=== PATIENT | female | born 1935 | race Caucasian/White ===

== ENCOUNTER 2021-10-01 18:34 | Inpatient (IN) ==
--- NOTE | 2021-10-01 19:05 | Emergency Department Note ---
Impression & Plan Hypoxemia, Fall, CHI (closed head injury), Contusion of face, Anemia ED Provider Note NAME: ISABELLE ARANGO AGE: 86 SEX: F : 1935 ARRIVES VIA: Walk-In INFORMANT: Patient, ED PROVIDER(S): Shashi Ramirez MD Chief Complaint: Fall, facial pain HPI: Patient does present after sustaining a ground-level fall last evening. The patient states that she fell striking the front left side of her face. The patient does have mild pain to the left side of the head as well as the nose. The patient does take baby aspirin but no other medications. The patient denies any fevers or chills. Patient denies any chest pain abdominal pain back pain or extremity pain. Patient has not take anything for symptoms at home. The patient's pain is achy and worse with palpation. The patient's daughter who is present at bedside states that the patient has had approximate 4 falls since June. They do have the office of aging involved and somebody is supposed to present later this week for a life alert for the patient. Patient family are currently comfortable with current at home plan and are not seeking any hesham tional in or out home care at this time. They do believe the patient is safe at home. The daughter also relates that she has noticed some occasional tremor- like movements. No reported history of Parkinson's or dementia. ROS: See HPI for pertinent positives and negatives. A total of 10 systems were reviewed and otherwise negative. Past medical history: See below Surgical history: See below Social history: See below Physical Exam: GENERAL: NAD, non-toxic. EYE EXAM: Normal conjunctiva. PERRL, no anisocoria and EOM's grossly intact w/o pain. Face: Mild pain to the nose with associated ecchymosis and swelling, no epistaxis, mild pain to the left forehead with small area of ecchymosis but no obvious deformity. OROPHARYNX: Moist mucus membranes. Grossly normal dentition. NECK: Supple, no nuchal rigidity, no adenopathy, non-tender. No signs of meningismus. No midline C-spine TTP. Chest: No pain to palpation or obvious deformity. LUNGS: Clear to auscultation. Normal chest wall mechanics. HEART: NSR, no MRG. ABDOMEN: Abdomen soft, non-tender, normo-active bowel sounds, no masses, no rebound or guarding. BACK: No CVA TTP. SKIN: No rashes and no bruising. UPPER EXTREMITIES: Upper extremities are grossly normal. No pain to palpation or obvious deformity. LOWER EXTREMITIES: Grossly normal, no edema. No pain to palpation or obvious deformity, left lower extremity in boot. NEURO EXAM: A&O x3, cranial nerves II-XII grossly intact, normal speech, moves all 4 extremities on command w/o issue. Differential diagnoses: Fracture, dislocation, contusion, intra-abdominal, pneumothorax, intrathoracic, intracranial, neurologic, compartment syndrome, rhabdomyolysis, as well as other pathologies. Course: Patient was seen and evaluated the bedside. Full history physical exam was p erformed. EKG is interpreted by me Sinus with first-degree AV block, rate of 72, prolonged TN, normal axis, no obvious ST changes. No significant change from comparison EKG June 13, 2020. Imaging Studies: See Below Cardiac monitoring: An order was placed for continuous cardiac monitoring. The monitor shows a rate of 72 with sinus rhythm. MDM: Patient was seen in the ED waiting room as there were no beds in which the patient could initially be seen. Patient did have a CT of the head cervical spine and face completed. I was called by radiology as they were concerned about an abnormal finding is seen on the patient's scalp film and CT cervical spine. Patient did have a CT Noncon chest ordered as well. I did review prior x-ray which did appear to show similar findings from the patient's application coordinator film from today. Patient CT did not show any acute traumatic findings. 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 The patient states that she had this procedure done greater than a year ago. Further discussion with the patient the patient's daughter the patient has had been having some word finding difficulty increasing tremor with recurrence of falls. They are concerned about the patient's at home safety. Given this blood work is obtained. The patient has had increasing falls and questionable word finding difficulty although the patient's last known well is not easy to pinpoint to the patient states that has been ongoing for several months do not believe the patient is a TPA candidate especially in light of her recent trauma. Patient did have some hypoxemia. Upon reassessment the patient denies any chest pains or shortness of breath. P evelin was tolerating supplemental nasal cannula without any issues. I did speak with the on-call hospitalist Dr. Mcclure and the patient was admitted to the medicine service. Critical Care: I have personally spent 35 minutes of critical care time in direct management of this patient. This includes bedside care, interpretation of diagnostic studies, and testing, discussion with consultants, patient, and family members, and other require inpatient management activities. This 35 minutes is in excess of all separately billable procedures. Past Med/Surg History Medical History Hiatal hernia Hypertension Surgical History H/O bladder repair surgery H/O: hysterectomy History of back surgery Hx of cholecystectomy Social History Smoking Status: Never smoker Feels Safe at Home: Yes Assistive Devices: Walker Immunizations: Vaccinated for Covid and flu Allergies Allergies Allergy/AdvReac Type Severity Reaction Status Date / Time No Known Allergies Allergy Unknown ` Verified 10/01/21 23:19 Home Meds Home Medications Medication Instructions Recorded Confirmed allopurinol 300 mg tablet 300 mg PO DAILY 10/01/21 10/01/21 aspirin 81 mg tablet,delayed 81 mg PO DAILY 10/01/21 10/01/21 release (Aspirin Low Dose) atenolol 25 mg tablet 25 mg PO DAILY 10/01/21 10/01/21 furosemide 40 mg tablet 40 mg PO DAILY 10/01/21 10/01/21 hydroxyzine HCl 25 mg tablet 25 mg PO HS PRN 10/01/21 10/01/21 levothyroxine 50 mcg tablet 50 mcg PO DAILYBB 10/01/21 10/01/21 pregabalin 75 mg capsule 75 mg PO DAILY 10/01/21 10/01/21 sulfamethoxazole 800 1 tab PO BID 10/01/21 10/01/21 mg-trimethoprim 160 mg tablet tolterodine 4 mg capsule,extended 4 mg PO DAILY 10/01/21 10/01/21 release 24 hr tramadol 50 mg tablet 100 mg PO DAILY 10/01/21 10/01/21 Results & Data (ED) Vital Signs Vital Signs - 24 hr 10/01/21 18:35 10/01/21 18:42 10/01/21 20:08 Temperature 36.5 C Temperature Source Temporal Artery Scan Pulse Rate 70 Pulse Rate [Right Finger] 79 Respiratory Rate 22 19 Respiratory Effort / Characteristics Non-Labored Spontaneous Respiratory Depth Normal Respiratory Pattern Regular Blood Pressure 112/50 L Blood Pressure [Right Arm] 110/53 L Blood Pressure Mean 70 Blood Pressure Mean [Right Arm] 72 Pulse Oximetry 100 96 87 L Oxygen Delivery Method Nasal Cannula Room Air Room Air Oxygen Flow Rate 2 Sepsis Recent Fever Within 48 Hours No Sepsis New/Unexplained Change in Mental Status N/A Sepsis Action Taken by Nursing No Action Required 10/01/21 20:35 Temperature Temperature Source Pulse Rate Pulse Rate [Right Finger] 72 Respiratory Rate 20 Respiratory Effort / Characteristics Respiratory Depth Respiratory Pattern Blood Pressure Blood Pressure [Right Arm] 104/56 L Blood Pressure Mean Blood Pressure Mean [Right Arm] 72 Pulse Oximetry 100 Oxygen Delivery Method Nasal Cannula Oxygen Flow Rate 2 Sepsis Recent Fever Within 48 Hours Sepsis New/Unexplained Change in Mental Status Sepsis Action Taken by Skilled Nursing Medications Current Medication List: was personally reviewed by me Laboratory Data Attestation: I reviewed the patient's lab results. Result diagrams: 10/01/21 20:24 10/02/21 04:42 Lab Results 10/01/21 10/01/21 10/01/21 Range/Units 20:15 20:24 20:24 WBC 8.35 (4.8-10.8) K/uL RBC 3.30 L (4.2-5.4) M/uL Hgb 9.5 L (12.0-16.0) g/dL Hct 29.8 L (37-47) % MCV 90.3 (80-100) fL MCH 28.8 (25-34) pg MCHC 31.9 L (32-36) g/dL RDW Std Deviation 52.9 H (36.4-46.3) fL RDW Coeff of Lea 16.2 H (11.5-14.5) % Plt Count 312 (130-400) K/uL MPV 9.8 (7.4-10.4) fL Immature Gran % (Auto) 0.1 % Neut % (Auto) 62.3 % Lymph % (Auto) 31.1 % Guthrie % (Auto) 5.3 % Eos % (Auto) 0.8 % Baso % (Auto) 0.4 % Neut # (Auto) 5.20 (1.4-6.5) K/uL Lymph # (Auto) 2.60 (1.2-3.4) K/uL Guthrie # (Auto) 0.44 (0.11-0.59) K/uL Eos # (Auto) 0.07 (0-0.5) K/uL Baso # (Auto) 0.03 (0-0.2) K/uL Immature Gran # (Auto) 0.01 (0.00-0.02) K/uL Sodium 142 (136-145) mmol/L Potassium 3.1 L (3.5-5.1) mmol/L Chloride 103 (98-107) mmol/L Carbon Dioxide 29 (21-32) mmol/L Anion Gap 10.0 (3-11) BUN 31 H (7-18) mg/dl Creatinine 2.38 H (0.6-1.2) mg/dl Est Cr Clr Drug Dosing 11.4 ml/min Est GFR ( Amer) 20.6 ml/min Est GFR (Non-Af Amer) 17.7 ml/min BUN/Creatinine Ratio 12.9 (10-20) Glucose 81 (70-99) mg/dl Calcium 7.8 L (8.5-10.1) mg/dl Phosphorus 3.0 (2.5-4.9) mg/dl Magnesium 1.0 L (1.8-2.4) mg/dl Total Bilirubin 0.3 (0.2-1) mg/dl AST 40 H (15-37) U/L ALT 29 (12-78) Alkaline Phosphatase 154 H (45-117) U/L Troponin I < 0.015 (0-0.045) ng/ml Total Protein 6.8 (6.4-8.2) gm/dl Albumin 2.5 L (3.4-5.0) gm/dl Globulin 4.3 H (2.5-4.0) gm/dl Albumin/Globulin Ratio 0.6 L (0.9-2) TSH 0.604 (0.300-4.500) uIu/ml SARS-CoV-2, RNA, NAAT NEGATIVE (NEGATIVE) Administered Medications Allopurinol (Allopurinol 100 Mg Tab) 100 mg PO DAILY DARIEL Stop: 11/01/21 08:59 Last Admin: 12/27/21 09:54 Dose: 100 mg Documented by: [id number] Aspirin (Aspirin 81 Mg Ectab) 81 mg PO DAILY DARIEL Stop: 11/01/21 08:59 Last Admin: 10/02/21 09:54 Dose: 81 mg Documented by: [id number] Atenolol (Atenolol 25 Mg Tablet) 25 mg PO DAILY DARIEL Stop: 11/01/21 08:59 Last Admin: 10/02/21 09:54 Dose: 25 mg Documented by: [id number] Cyanocobalamin (Cyanocobalamin 500 Mcg Tablet (Vitamin B-12)) 1,000 mcg PO DAILY DARIEL Stop: 11/01/21 08:59 Last Admin: 10/02/21 09:55 Dose: 1,000 mcg Documented by: [id number] Docusate Sodium (Docusate Sodium 100 Mg Cap) 100 mg PO BID DARIEL Stop: 11/01/21 08:59 Last Admin: 10/02/21 09:55 Dose: 100 mg Documented by: [id number] Estrogens Conjugated (Estrogens, Conjugated 0.45 Mg Tab) 0.45 mg PO DAILY DARIEL Stop: 11/01/21 08:59 Last Admin: 10/02/21 09:55 Dose: 0.45 mg Documented by: [id number] Ferrous Sulfate (Ferrous Sulfate 325 Mg Tab) 325 mg PO BIDM DARIEL Stop: 11/01/21 07:59 Last Admin: 10/02/21 09:54 Dose: 325 mg Documented by: [id number] Folic Acid (Folic Acid 400 Mcg Tab) 1,600 mcg PO DAILY DARIEL Stop: 11/01/21 08:59 Last Admin: 10/02/21 09:55 Dose: 1,600 mcg Documented by: [id number] Furosemide (Furosemide 40 Mg Tab) 40 mg PO DAILY DARIEL Stop: 11/01/21 08:59 Last Admin: 10/02/21 09:56 Dose: 40 mg Documented by: [id number] Heparin Sodium (Porcine) (Heparin Sod 5,000 Unit/0.5 Ml Vial) 5,000 units SQ Q12 DARIEL Stop: 11/01/21 08:59 Last Admin: 10/02/21 09:56 Dose: 5,000 units Documented by: [id number] Potassium Chloride/Sodium Chloride (Normal Saline W/20 Meq Kcl) 20 meq in 1,000 mls @ 115 mls/hr IV .Q8H42M DARIEL Stop: 10/02/21 20:53 Last Infusion: 10/02/21 11:57 Dose: 0 mls/hr Documented by: [id number] Admin: 10/02/21 03:52 Dose: 115 mls/hr Documented by: [id number] Imipramine HCl (Imipramine Hcl 10 Mg Tab) 20 mg PO BID DARIEL Stop: 11/01/21 08:59 Last Admin: 10/02/21 09:57 Dose: 20 mg Documented by: [id number] Magnesium Oxide (Magnesium Oxide 400 Mg Tab) 400 mg PO DAILY DARIEL Stop: 11/01/21 08:59 Last Admin: 10/02/21 09:57 Dose: 400 mg Documented by: [id number] Pantoprazole Sodium (Pantoprazole 40 Mg Tab) 40 mg PO DAILY DARIEL Stop: 11/01/21 08:59 Last Admin: 10/02/21 09:57 Dose: 40 mg Documented by: [id number] Potassium Chloride (Potassium Chloride Crtab 20 Meq Tabcr) 40 meq PO Q6H DARIEL Stop: 10/02/21 14:01 Last Admin: 10/02/21 09:54 Dose: 40 meq Documented by: [id number] Pregabalin (Pregabalin 50 Mg Cap) 50 mg PO DAILY DARIEL Stop: 11/01/21 08:59 Last Admin: 10/02/21 11:57 Dose: 50 mg Documented by: [id number] Trimethoprim/Sulfamethoxazole (Sulfamethoxazole/Trimethoprim Ds 800/160mg Tab) 2 tab PO Q24H DARIEL; Protocol Stop: 10/09/21 08:59 Last Admin: 10/02/21 09:57 Dose: 2 tab Documented by: [id number] Discontinued Medications Albuterol (Albut/Ipratrop 3mg/0.5mg Neb 3 Ml Vial) 3 ml NEB NOW STA; Protocol Stop: 10/01/21 20:59 Last Admin: 10/01/21 21:09 Dose: 3 ml Documented by: [id number] Sodium Chloride (Nss) 500 mls @ 999 mls/hr IV .Q31M DARIEL Stop: 10/01/21 20:45 Last Infusion: 10/01/21 21:22 Dose: 0 mls/hr Documented by: [id number] Admin: 10/01/21 20:48 Dose: 999 mls/hr Documented by: [id number] Magnesium Sulfate/Dextrose (Magnesium Sulfate / D5w) 1 gm in 100 mls @ 50 mls/hr IV Q2H STA Stop: 10/02/21 00:15 Last Infusion: 10/02/21 00:55 Dose: 0 mls/hr Documented by: [id number] Admin: 10/01/21 22:33 Dose: 50 mls/hr Documented by: [id number] Imaging Data Radiologist's Impression: Cervical Spine CT 10/01/21 19:02 CT cervical spine wo con CLINICAL HISTORY: Status post fall with neck pain COMPARISON STUDY: No previous studies for comparison. CT DOSE: TECHNIQUE: Standard CT of the Cervical Spine was performed without IV contrast. A dose lowering technique was utilized adhering to the principles of ALARA. FINDINGS: Bones: Bones are osteopenic. There is no evidence for an acute fracture or malalignment. The heights of the vertebral bodies are maintained. The vertebral bodies are in anatomic alignment. The odontoid is intact. Degenerative changes are seen at the atlantoaxial articulation. Disc spaces:There is moderate to marked disc space narrowing at C5-6 and C6-7 with endplate cirrhosis and osteophyte formation. Apophyseal joints:Extensive degenerative apophyseal joint disease is also pr esent bilaterally. Soft tissues:There is an abnormal air collection seen within the soft tissues anterior to the lower cervical and thoracic spine was separate from the cervical airway. This extends from the C5-C6 interspace level inferiorly. IMPRESSION: Osteopenia with no acute abnormality. Extensive degenerative disc and degenerative joint disease. Abnormal air collection anterior to the lower cervical and upper thoracic spine of uncertain etiology. This will be further evaluated on CT of the chest which was also ordered on this patient. ACT 112: Negative or not required by law. Electronically signed by: Ildefonso Waters M.D. 10/01/2021 7:[address] 10/01/21 19:02 CT facial bones wo con CLINICAL HISTORY: Status post fall with trauma to the head and face COMPARISON STUDY: No previous studies for comparison. CT DOSE: TECHNIQUE: Standard CT of the Facial Bones and Orbits was performed without IV contrast. A dose lowering technique was utilized adhering to the principles of ALARA. FINDINGS: Bones: There are no displaced fractures identified. The orbital rims are intact bilaterally. The zygomatic arches are intact bilaterally. There is evidence for an old right lateral nasal fracture. No acute nasal bone fractures seen The nasal septum is in the midline. The mandible and maxilla are intact. Paranasal sinuses:The adjacent paranasal sinuses are clear. Soft tissues:There is no focal soft tissue swelling. IMPRESSION: No acute abnormality. ACT 112: Negative or not required by law. Electronically signed by: Ildefonso Waters M.D. 10/01/2021 7:[address] 10/01/21 19:02 CT head/brain wo con CLINICAL HISTORY: Status post fall with trauma to the head. Pain COMPARISON STUDY: 06/13/2020 CT DOSE: 1317.02 mGy.cm TECHNIQUE: Standard CT of the Brain was performed without IV contrast. A dose lowering technique was utilized adhering to the principles of ALARA. FINDINGS: Extraaxial space: There is no evidence for subdural hematoma. There are no extra-axial fluid collections. Ventricles and cisterns: The ventricles are normal in size and configuration. There is no evidence for midline shift or mass effect. Parenchyma: There is no subarachnoid or intraparenchymal hemorrhage. There is no evidence for an acute infarct or cerebral edema. There is mild cerebral cortical atrophy and decreased attenuation in the periventricular white matter representing remote small vessel disease. There are no gross mass lesions. Osseous structures: There is no evidence for an acute fracture. The visualized paranasal sinuses are clear. The mastoid air cells are clear bilaterally. Soft tissues: There is no evidence for focal soft tissue swelling. IMPRESSION: No acute intracerebral pathology. 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 ACT 112: Negative or not required by law. Electronically signed by: Ildefonso Waters M.D. 10/01/2021 7:[address] 10/01/21 19:22 CT chest diagnostic wo con CLINICAL HISTORY: Abnormal air collections in the lower cervical and thoracic spine with the CT chest to further evaluate. COMPARISON STUDY: No previous studies for comparison. CT DOSE: 236.58 mGy.cm TECHNIQUE: Standard CT of the Chest was performed without IV contrast. A dose lowering technique was utilized adhering to the principles of ALARA. FINDINGS: The large air collection seen anterior to the cervical and thoracic spine extends all the way down to the stomach. 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 Clinical correlation is necessary. Airway: The airway is clear. No endobronchial lesion is identified. Lungs: Mild centrilobular emphysematous changes are seen particularly involving the right upper lobe. Mild interstitial fibrotic changes are also present bilaterally. The lungs are otherwise clear of acute alveolar opacities, air bronchograms or pulmonary nodules. Pleura: There is no evidence for pleural effusion. There is no evidence for pneumothorax. Mediastinum: There is no evidence for pathologic adenopathy on these limited noncontrast images. The heart size is within normal limits. The thoracic aorta is within normal limits. Atherosclerotic calcification is present. There is no evidence for pericardial effusion. Upper abdomen: The adrenal glands are normal bilaterally. Osseous structures: There is no acute osseous pathology. IMPRESSION: 1. CT findings most characteristic of previous esophagectomy with gastric pull- through procedure accounting for the air collection seen. Clinical correlation is recommended. 2. Mild centrilobular is edematous changes particularly involving the right upper lobe. 3. Mild interstitial fibrotic changes are also present. 4. There is otherwise no acute chest disease on these noncontrast images. ACT 112: Negative or not required by law. Electronically signed by: Ildefonso Waters M.D. 10/01/2021 7:50 PM Discharge Plan Visit Data Chief Complaint: Fall Stated Complaint: FALL, HIT HEAD, NOSE PAIN ED Provider: Shashi Ramirez Discharge Problem: Hypoxemia, Fall, CHI (closed head injury), Contusion of face, Anemia Discharge Problem: Fall Qualifiers: Encounter type: initial encounter Qualified Code(s): W19.XXXA - Unspecified fall, initial encounter CHI (closed head injury) Qualifiers: Encounter type: initial encounter Qualified Code(s): S09.90XA - Unspecified injury of head, initial encounter Contusion of face Qualifiers: Encounter type: initial encounter Qualified Code(s): S00.83XA - Contusion of other part of head, initial encounter Anemia Qualifiers: Anemia type: unspecified type Qualified Code(s): D64.9 - Anemia, unspecified
--- NOTE | 2021-10-01 19:35 | CT Scan Report ---
CT head/brain wo con CLINICAL HISTORY: Status post fall with trauma to the head. Pain COMPARISON STUDY: 06/13/2020 CT DOSE: 1317.02 mGy.cm TECHNIQUE: Standard CT of the Brain was performed without IV contrast. A dose lowering technique was utilized adhering to the principles of ALARA. FINDINGS: Extraaxial space: There is no evidence for subdural hematoma. There are no extra-axial fluid collecti ons. Ventricles and cisterns: The ventricles are normal in size and configuration. There is no evidence f or midline shift or mass effect. Parenchyma: There is no subarachnoid or intraparenchymal hemorrhage. There is no evidence for an acu te infarct or cerebral edema. There is mild cerebral cortical atrophy and decreased attenuation in th e periventricular white matter representing remote small vessel disease. There are no gross mass lesi ons. Osseous structures: There is no evidence for an acute fracture. The visualized paranasal sinuses are clear. The mastoid air cells are clear bilaterally. Soft tissues: There is no evidence for focal soft tissue swelling. IMPRESSION: No acute intracerebral pathology. 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 ACT 112: Negative or not required by law. Electronically signed by: Ildefonso Waters M.D. 10/01/2021 7:34 PM
--- NOTE | 2021-10-01 19:40 | CT Scan Report ---
CT cervical spine wo con CLINICAL HISTORY: Status post fall with neck pain COMPARISON STUDY: No previous studies for comparison. CT DOSE: TECHNIQUE: Standard CT of the Cervical Spine was performed without IV contrast. A dose lowering te chnique was utilized adhering to the principles of ALARA. FINDINGS: Bones: Bones are osteopenic. There is no evidence for an acute fracture or malalignment. The heights of the vertebral bodies are maintained. The vertebral bodies are in anatomic alignment. The odontoid is intact. Degenerative changes are seen at the atlantoaxial articulation. Disc spaces:There is moderate to marked disc space narrowing at C5-6 and C6-7 with endplate cirrhosis and osteophyte formation. Apophyseal joints:Extensive degenerative apophyseal joint disease is also present bilaterally. Soft tissues:There is an abnormal air collection seen within the soft tissues anterior to the lower c ervical and thoracic spine was separate from the cervical airway. This extends from the C5-C6 intersp jefe level inferiorly. IMPRESSION: Osteopenia with no acute abnormality. Extensive degenerative disc and degenerative joint disease. Abnormal air collection anterior to the lower cervical and upper thoracic spine of uncertain etiology. This will be further evaluated on CT of the chest which was also ordered on this patient. ACT 112: Negative or not required by law. Electronically signed by: Ildefonso Waters M.D. 10/01/2021 7:39 PM
--- NOTE | 2021-10-01 19:44 | CT Scan Report ---
CT facial bones wo con CLINICAL HISTORY: Status post fall with trauma to the head and face COMPARISON STUDY: No previous studies for comparison. CT DOSE: TECHNIQUE: Standard CT of the Facial Bones and Orbits was performed without IV contrast. A dose lowe ring technique was utilized adhering to the principles of ALARA. FINDINGS: Bones: There are no displaced fractures identified. The orbital rims are intact bilaterally. The zygo matic arches are intact bilaterally. There is evidence for an old right lateral nasal fracture. No ac zelda nasal bone fractures seen The nasal septum is in the midline. The mandible and maxilla are intact . Paranasal sinuses:The adjacent paranasal sinuses are clear. Soft tissues:There is no focal soft tissue swelling. IMPRESSION: No acute abnormality. ACT 112: Negative or not required by law. Electronically signed by: Ildefonso Waters M.D. 10/01/2021 7:43 PM
--- NOTE | 2021-10-01 19:51 | CT Scan Report ---
CT chest diagnostic wo con CLINICAL HISTORY: Abnormal air collections in the lower cervical and thoracic spine with the CT chest to further evaluate. COMPARISON STUDY: No previous studies for comparison. CT DOSE: 236.58 mGy.cm TECHNIQUE: Standard CT of the Chest was performed without IV contrast. A dose lowering technique was utilized adhering to the principles of ALARA. FINDINGS: The large air collection seen anterior to the cervical and thoracic spine extends all the way down to the stomach. The stomach is pulled into the chest and the findings are most characteristic of interp osition of bowel status post esophagectomy. Clinical correlation is necessary. Airway: The airway is clear. No endobronchial lesion is identified. Lungs: Mild centrilobular emphysematous changes are seen particularly involving the right upper lobe. Mild interstitial fibrotic changes are also present bilaterally. The lungs are otherwise clear of [place] alveolar opacities, air bronchograms or pulmonary nodules. Pleura: There is no evidence for pleural effusion. There is no evidence for pneumothorax. Mediastinum: There is no evidence for pathologic adenopathy on these limited noncontrast images. The heart size is within normal limits. The thoracic aorta is within normal limits. Atherosclerotic calci fication is present. There is no evidence for pericardial effusion. Upper abdomen: The adrenal glands are normal bilaterally. Osseous structures: There is no acute osseous pathology. IMPRESSION: 1. CT findings most characteristic of previous esophagectomy with gastric pull-through procedure acco unting for the air collection seen. Clinical correlation is recommended. 2. Mild centrilobular is edematous changes particularly involving the right upper lobe. 3. Mild interstitial fibrotic changes are also present. 4. There is otherwise no acute chest disease on these noncontrast images. ACT 112: Negative or not required by law. Electronically signed by: Ildefonso Waters M.D. 10/01/2021 7:50 PM
[2021-10-01] MEDS ORDERED: SODIUM CHLORIDE 0.9% 500 ML IV SCH (20:15)
[2021-10-01 20:36] LABS: Basophils # (auto) 0.03 K/uL (0-0.2); Basophils % (auto) 0.4 %; Eosinophils # (auto) 0.07 K/uL (0-0.5); Eosinophils % (auto) 0.8 %; Hematocrit (blood only) 29.8 % (37-47); Hemoglobin 9.5 g/dL (12.0-16.0); Immature Granulocytes # (auto) 0.01 K/uL (0.00-0.02); Immature Granulocytes % (auto) 0.1 %; Lymphocytes % (auto) 31.1 %; Mean Corpuscular Hemoglobin 28.8 pg (25-34); Mean Corpuscular Hgb Conc 31.9 g/dL (32-36); Mean Corpuscular Volume 90.3 fL (80-100); Mean Platelet Volume 9.8 fL (7.4-10.4); Monocytes # (auto) 0.44 K/uL (0.11-0.59); Monocytes % (auto) 5.3 %; Neutrophils % (auto) 62.3 %; Platelet Count 312 K/uL (130-400); RDW Coefficient of Variation 16.2 % (11.5-14.5); RDW Standard Deviation 52.9 fL (36.4-46.3); White Blood Count 8.35 K/uL (4.8-10.8)
[2021-10-01] MEDS ORDERED: ALBUT/IPRATROP 3MG/0.5MG NEB 3 ML VIAL NEB STA (20:58)
[2021-10-01 21:00] LABS: Alanine Aminotransferase 29 (12-78); Albumin Level 2.5 gm/dl (3.4-5.0); Aspartate Aminotransferase 40 U/L (15-37); BUN Creatinine Ratio 12.9 (10-20); Blood Urea Nitrogen 31 mg/dl (7-18); Calcium 7.8 mg/dl (8.5-10.1); Carbon Dioxide 29 mmol/L (21-32); Chloride 103 mmol/L (98-107); Creatinine Clr Calc Pharmacy 11.4 ml/min; Est GFR (African American) 20.6 ml/min; Est GFR (Non-African American) 17.7 ml/min; Glucose 81 mg/dl (70-99); Potassium 3.1 mmol/L (3.5-5.1); Sodium 142 mmol/L (136-145)
[2021-10-01 21:06] LABS: Bilirubin,Total 0.3 mg/dl (0.2-1)
[2021-10-01 21:10] LABS: Albumin Globulin Ratio 0.6 (0.9-2); Alkaline Phosphatase 154 U/L (45-117); Globulin 4.3 gm/dl (2.5-4.0); Thyroid Stimulating Hormone 0.604 uIu/ml (0.300-4.500); Total Protein 6.8 gm/dl (6.4-8.2); Troponin I < 0.015 ng/ml (0-0.045)
[2021-10-01] MEDS ORDERED: MAGNESIUM SULFATE / D5W 1 GM/100 ML BAG IV STA (22:16)
--- NOTE | 2021-10-01 22:24 | History & Physical Report ---
Date of Service October 01, 2021 Assessment & Plan (1) Fall: Plan: Mrs. Sarmiento is an 86 yo woman who is being admitted for evaluation of increasingly frequent falls, intermittent tremors and word finding difficulties. - no acute injuries noted on CT of head, cervical spine, face and chest - Etiology of falls does not appear to be mechanical, would favor syncope - Lack of prodrome makes vasovagal unlikley - orthostasis is a possibility. orthostatic vitals ordered - hypotension is possible given home medications of atenolol and lasix; BP here mildly soft at 110/53 - cardiac is a possibility given lack of prodrome - no arrhythmia noted on ekg - continue cardiac monitoring - neurogenic origin is plausible given new onset shakes and word finding issues. Head CT was normal. Brain MRI ordered (cannot use contrast due to kidney function). EEG ordered. Consider neuro consult. - As for the new onset shakes/word finding difficulties - unclear if these are related to falls. Brain MRI and EEG as above. Consideration should also be given to poor kidney function - patient is on Lyrica, and at upper limit of dosing for CrCl - it is possible symptoms are due to impaired clearance of this medication. Dose reduced to 50mg daily. (2) Hypoxia: Plan: - O2 sat recorded as low as 87 % on room air --> improved to 100% on 2L via NC after duo neb administration - no history of underlying lung disease (although she is a former smoker) - COVID 19 neg - Chest CT showing no focal consolidation or nodules; mild emphysematous changes and mild interstitial fibrotic changes noted - etiology uncertain: infection seems unlikely; wells score of 0, PE unlikely. Could be client support representative of undiagnosed COPD - recommend formal PFTs as outpatient - ambulatory pulse ox ordered (3) Elevated serum creatinine: Plan: - Cr 2.38, BUN at 31 - Cr from 06/2021 admission was 1.28 - CrCl is 11, GFR is 17 - renally dose meds as appropriate; avoid contrast dye - NSS ordered - trend CMP (4) Anemia: Plan: - Hgb 9.5, MCV 90 - normocytic anemia - iron panel ordered - continue home ferrous sulfate, B12 and folate supplements (5) Hypokalemia: Plan: - level 3.1; NSS with 20meq Kcl ordered - Mag low at 1.0; supplement ordered - patient is on home lasix dose - trend CMP (6) Hypomagnesemia: Plan: - low at 1.0 - patient takes mag-ox supplement as outpatient - consider switching to mag - chloride for improved absoprtion - IV mag sulfate ordered - repeat Mag level in AM (7) Foot ulcer, left: Plan: - wound care nurse consulted - per patient, wound culture grew MRSA - continue Bactrim (renally dosed at 1 tab q12) (8) Elevated AST (SGOT): Plan: - level at 40 - repeat CMP in am (9) Neuropathic pain: Plan: - home dose of lyrica is 75mg daily - considering CrCl is < 15mL/minute, 75mg daily dose is at upper limit - will reduce dose to 50mg daily (10) Gout: Plan: - continue home allopurinol dose (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 PT/OT ordered Code: DNOrquidea, juvenal with cardiac resuscitation Plan: Patient seen and examined, chart reviewed, case discussed with Dr. Beyer and I agree with her assessment and plan as above. In brief, patient is an 86yo female presenting with increase in falls, gait instability as well as word finding and tremor/myoclonic jerking, ongoing x 2 weeks Hypoxic in the ER requiring supplemental O2 Afebrile, HD stable, adequate oxygenation on 2L NC Speech is slow but appropriate +tremor noted HEENT -MMM, Neck supple Heart - +S1/S2, regular Lungs - CTA Abd - +BS, soft, NT/ND Ext - No edema Labs and images reviewed Assessment/Plan- ?falls vs syncope. Concerning with word finding as well as report of tremor. ?if from worsening renal function - myoclonic jerking, ambulatory dysfunction ?CVA/TIA/Seizures -Check MRI Brain -Check orthostatic VS and ambulatory sats -Renal dosing to all meds -Remainder as above History of Present Illness Primary Care Provider: Dorian Mcnulty Mrs. Sarmiento is an 86 yo woman who was brought in to the [facility] ED by her daughter for evaluation after a fall. She fell in her home on 09/30/21 and struck the left side of her face. Her daughter states she has sustained 4-5 falls since the month of June 2021. Mrs. Sarmiento denies tripping - she denies any prodromal symptoms (chest flutter, graying of vision, dizziness/li ghtheadedness). She says "all of a sudden I am down." She does take a daily baby aspirin, but she is not on a thinner. In the days preceding this admission, she denies any acute illness (fever/chills, cough, congestion, dysuria, nausea/vomiting, diarrhea). However, over the past two weeks, she reports new intermittent "shakes/jerks" and word finding difficulty. She says they come on randomly and later self- resolve. The shakes affect her face/mouth and her upper extremities. Her daughter, who is present during the admission, attests that this is a marked change from her typical baseline. Of note, she is on a course of Bactrim for a MRSA + ulcer of the left foot. She wears a soft walking boot. Family Hx: mother had dementia, no hx of Parkinsons, no seizure disorders Social Hx: she lives alone; office of the aging is involved and plans to drip off a life alert necklace to her this coming week; no etoh; former smoker, quit 25 years ago, 20 pack year history. In the ED, she was afebrile with normal HR and blood pressure. Her O2 sat was as low as 87% on room air. Her WBC was normal, covid 19 test negative. Hgb low at 9.5, MCV 90. K low at 3.1. Mag low at 1.0. Cr elevated to 2.38, BUN at 31. AST elevated to 40, ALT WNL. Albumin low at 2.5. Trop undetectable. TSH WNL. EKG showing NSR. Head CT showing no acute abnormalities. C-spine CT showing degenerative changes without acute pathology. Face CT was normal. Chest CT showing evidence of a large air collection, seen anterior to the cervical and thoracic spine, extending all the way down to the stomach. 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 She was given 1 duo-neb and 500ml of NSS. Allergies Allergy/AdvReac Type Severity Reaction Status Date / Time No Known Allergies Allergy Unknown ` Verified 10/01/21 23:19 Home Medications Medication Instructions Recorded Confirmed Type allopurinol 300 mg tablet 300 mg PO DAILY 10/01/21 10/01/21 History aspirin 81 mg tablet,delayed 81 mg PO DAILY 10/01/21 10/01/21 History release (Aspirin Low Dose) atenolol 25 mg tablet 25 mg PO DAILY 10/01/21 10/01/21 History furosemide 40 mg tablet 40 mg PO DAILY 10/01/21 10/01/21 History hydroxyzine HCl 25 mg tablet 25 mg PO HS PRN 10/01/21 10/01/21 History levothyroxine 50 mcg tablet 50 mcg PO DAILYBB 10/01/21 10/01/21 History pregabalin 75 mg capsule 75 mg PO DAILY 10/01/21 10/01/21 History sulfamethoxazole 800 1 tab PO BID 10/01/21 10/01/21 History mg-trimethoprim 160 mg tablet tolterodine 4 mg capsule,extended 4 mg PO DAILY 10/01/21 10/01/21 History release 24 hr tramadol 50 mg tablet 100 mg PO DAILY 10/01/21 10/01/21 History Past Med/Surg History Medical History Hiatal hernia Hypertension Surgical History H/O bladder repair surgery H/O: hysterectomy History of back surgery Hx of cholecystectomy Social History Smoking Status: Never smoker Feels Safe at Home: Yes Review of Systems Constitutional: no fever and no chills Respiratory: no cough Cardiovascular: + syncope; no chest pain Gastrointestinal: no abdominal pain and no vomiting Genitourinary: no dysuria and no urinary frequency Physical Exam Constitutional: WD/WN, vitals as above cooperative; no acute distress Eyes: + anicteric sclerae, PERRL, normal accommodation and EOM intact bilaterally; no nystagmus ENMT: external ear and nose normal, oropharynx normal Neck: trachea midline, no thyromegaly Respiratory: normal respiratory effort, lungs clear to auscultation Auscultation: no crackles, no rales, no rhonchi and no wheezes Cardiovascular: RRR, no murmur, no edema Heart Sounds: normal S1 and normal S2 Extremities: no pedal edema Gastrointestinal (Abdomen): normal bowel sounds, soft, nontender, no hepatosp lenomegaly Musculoskeletal: Head/Neck/Chest: normocephalic and head atraumatic Skin: no rashes, warm and dry + ulcer (dorsum of left foot, no signs of acute infection) and + ecchymosis (R face) Neurologic: CN's II-XI intact bilaterally, moves all extremities and awake; no focal motor deficits Speech / Cognition: + abnormal speech (word finding difficulty) no cogwheel rigidity noted Psychiatric: A+Ox3, euthymic affect Results & Data Results & Data ([facility]) Vital Signs (Past 12 Hours) Vital Signs Temp Pulse Pulse Resp BP BP Pulse Ox 10/01/21 20:35 72 20 104/56 L 100 10/01/21 20:08 87 L 10/01/21 18:42 36.5 C 70 19 112/50 L 96 10/01/21 18:35 79 22 110/53 L 100 Resident Activity Tracking Resident Involvement: Resident Care Provided Care Provided: Adult Hospital Medicine (1) Fall Encounter type: initial encounter Qualified Code(s): W19.XXXA - Unspecified fall, initial encounter
[2021-10-02] MEDS ORDERED: ACETAMINOPHEN 325 MG TAB PO PRN (02:32)
[2021-10-02] MEDS ORDERED: POLYETHYLENE (MIRALAX) 17 GM PACK PO PRN (02:32)
[2021-10-02] MEDS: NSS + 20MEQ KCL 20 MEQ/1,000 ML BAG IV SCH ×2 (03:52→13:11)
--- NOTE | 2021-10-02 04:11 | Billing Data ---
Date of Service October 01, 2021 Coding Level of Care Code INT OBSERVATION CARE 70M LVL 3
[2021-10-02 05:49] LABS: Albumin Globulin Ratio 0.6 (0.9-2); Albumin Level 2.2 gm/dl (3.4-5.0); BUN Creatinine Ratio 15.1 (10-20); Bilirubin,Total 0.2 mg/dl (0.2-1); Calcium 7.6 mg/dl (8.5-10.1); Creatinine Clr Calc Pharmacy 13.9 ml/min; Est GFR (African American) 26.3 ml/min; Est GFR (Non-African American) 22.7 ml/min; Globulin 3.5 gm/dl (2.5-4.0); Total Protein 5.7 gm/dl (6.4-8.2)
[2021-10-02 05:54] LABS: Ferritin 1665.8 ng/ml (8-388)
--- NOTE | 2021-10-02 07:49 | Electrocardiogram Report ---
Test Reason : Blood Pressure : / mmHG Vent. Rate : 072 BPM Atrial Rate : 072 BPM P-R Int : 214 ms QRS Dur : 092 ms QT Int : 442 ms P-R-T Axes : 000 -01 014 degrees QTc Int : 483 ms Poor data quality, interpretation may be adversely affected Sinus rhythm with 1st degree A-V block Otherwise normal ECG When compared with ECG of 13-JUN-2020 16:15, No significant change was found Confirmed by Nirav Quesada ([id number]) on 10/02/2021 7:48:59 AM Referred By: REFERRED SELF Confirmed By:Radames Quesada
--- NOTE | 2021-10-02 07:50 | Magnetic Resonance Report ---
MRI OF THE BRAIN WITHOUT CONTRAST CLINICAL HISTORY: new falls, intermittent tremors, word finding difficulty COMPARISON STUDY: Head CT October 01, 2021. TECHNIQUE: Utilizing a 1.5 Alejandrina magnet and dedicated coil, multiplanar, multiecho imaging of the bra in was performed without IV contrast. FINDINGS: There are no foci of restricted diffusion to suggest acute infarct. No acute intracranial h emorrhage, midline shift or mass effect is present. Ventricular system is unremarkable. Basal cistern s are patent. There are no extra-axial collections. Flow-voids for the major intracranial vessels are present. There is moderate atrophy. Mild white matter T2 hyperintense foci suggest small vessel dise ase. Calvarial signal is within normal limits. There is no evidence for sinusitis. There is no mastoi d fluid. IMPRESSION: 1. No acute intracranial findings. 2. Moderate atrophy and mild small vessel disease. ACT 112: Negative or not required by law. Electronically signed by: Jose Briceno M.D. 10/02/2021 7:49 AM
[2021-10-02] MEDS ORDERED: FERROUS SULFATE 325 MG TAB PO SCH (09:00)
[2021-10-02] MEDS ORDERED: SULFAMETHOXAZOLE/TRIMETHOPRIM DS 800/160MG TAB PO SCH (09:00)
[2021-10-02] MEDS: allopurinoL 100 MG TAB PO SCH (09:54)
[2021-10-02] MEDS: POTASSIUM CHLORIDE CRTAB 20 MEQ TABCR PO SCH ×2 (09:54→15:14)
[2021-10-02] MEDS: ATENOLOL 25 MG TABLET PO SCH (09:54)
[2021-10-02] MEDS: ASPIRIN 81 MG ECTAB PO SCH (09:54)
[2021-10-02] MEDS: FERROUS SULFATE 325 MG TAB PO SCH ×2 (09:54→18:12)
[2021-10-02] MEDS: DOCUSATE SODIUM 100 MG CAP PO SCH ×2 (09:55→20:48)
[2021-10-02] MEDS: FOLIC ACID 400 MCG TAB PO SCH (09:55)
[2021-10-02] MEDS: ESTROGENS, CONJUGATED 0.45 MG TAB PO SCH (09:55)
[2021-10-02] MEDS: CYANOCOBALAMIN 500 MCG TABLET (VITAMIN B-12) PO SCH (09:55)
[2021-10-02] MEDS: HEPARIN SOD 5,000 UNIT/0.5 ML VIAL SQ SCH ×2 (09:56→20:48)
[2021-10-02] MEDS: FUROSEMIDE 40 MG TAB PO SCH (09:56)
[2021-10-02] MEDS: IMIPRAMINE HCL 10 MG TAB PO SCH ×2 (09:57→20:48)
[2021-10-02] MEDS: MAGNESIUM OXIDE 400 MG TAB PO SCH (09:57)
[2021-10-02] MEDS: PANTOprazole 40 MG TAB PO SCH (09:57)
--- NOTE | 2021-10-02 10:44 | Electroencephalogram ---
EEG Procedure Note Date of Service October 02, 2021 Start / End Times Start Time: 9:22 AM End Time: 9:42 AM Referring Physician Bruna Beyer MD History New onset tremors, word finding difficulties, evaluate for seizure activity Home Medication List Medication Instructions Recorded Confirmed Type allopurinol 300 mg tablet 300 mg PO DAILY 10/01/21 10/01/21 History aspirin 81 mg tablet,delayed 81 mg PO DAILY 10/01/21 10/01/21 History release (Aspirin Low Dose) atenolol 25 mg tablet 25 mg PO DAILY 10/01/21 10/01/21 History furosemide 40 mg tablet 40 mg PO DAILY 10/01/21 10/01/21 History hydroxyzine HCl 25 mg tablet 25 mg PO HS PRN 10/01/21 10/01/21 History levothyroxine 50 mcg tablet 50 mcg PO DAILYBB 10/01/21 10/01/21 History pregabalin 75 mg capsule 75 mg PO DAILY 10/01/21 10/01/21 History sulfamethoxazole 800 1 tab PO BID 10/01/21 10/01/21 History mg-trimethoprim 160 mg tablet tolterodine 4 mg capsule,extended 4 mg PO DAILY 10/01/21 10/01/21 History release 24 hr tramadol 50 mg tablet 100 mg PO DAILY 10/01/21 10/01/21 History Inpatient Medication List Allopurinol (Allopurinol 100 Mg Tab) 100 mg PO DAILY [facility] Stop: 11/01/21 08:59 Last Admin: 10/02/21 09:54 Dose: 100 mg Documented by: [id number] Aspirin (Aspirin 81 Mg Ectab) 81 mg PO DAILY [facility] Stop: 11/01/21 08:59 Last Admin: 10/02/21 09:54 Dose: 81 mg Documented by: [id number] Atenolol (Atenolol 25 Mg Tablet) 25 mg PO DAILY [facility] Stop: 11/01/21 08:59 Last Admin: 10/02/21 09:54 Dose: 25 mg Documented by: [id number] Cyanocobalamin (Cyanocobalamin 500 Mcg Tablet (Vitamin B-12)) 1,000 mcg PO DAILY [facility] Stop: 11/01/21 08:59 Last Admin: 10/02/21 09:55 Dose: 1,000 mcg Documented by: [id number] Docusate Sodium (Docusate Sodium 100 Mg Cap) 100 mg PO BID [facility] Stop: 11/01/21 08:59 Last Admin: 10/02/21 09:55 Dose: 100 mg Documented by: [id number] Estrogens Conjugated (Estrogens, Conjugated 0.45 Mg Tab) 0.45 mg PO DAILY [facility] Stop: 11/01/21 08:59 Last Admin: 10/02/21 09:55 Dose: 0.45 mg Documented by: [id number] Ferrous Sulfate (Ferrous Sulfate 325 Mg Tab) 325 mg PO BIDM [facility] Stop: 11/01/21 07:59 Last Admin: 10/02/21 09:54 Dose: 325 mg Documented by: [id number] Folic Acid (Folic Acid 400 Mcg Tab) 1,600 mcg PO DAILY [facility] Stop: 11/01/21 08:59 Last Admin: 10/02/21 09:55 Dose: 1,600 mcg Documented by: [id number] Furosemide (Furosemide 40 Mg Tab) 40 mg PO DAILY [facility] Stop: 11/01/21 08:59 Last Admin: 10/02/21 09:56 Dose: 40 mg Documented by: [id number] Heparin Sodium (Porcine) (Heparin Sod 5,000 Unit/0.5 Ml Vial) 5,000 units SQ Q 12 [facility] Stop: 11/01/21 08:59 Last Admin: 10/02/21 09:56 Dose: 5,000 units Documented by: [id number] Potassium Chloride/Sodium Chloride (Normal Saline W/20 Meq Kcl) 20 meq in 1,000 mls @ 115 mls/hr IV .Q8H42M [facility] Stop: 10/02/21 20:53 Last Admin: 10/02/21 03:52 Dose: 115 mls/hr Documented by: [id number] Imipramine HCl (Imipramine Hcl 10 Mg Tab) 20 mg PO BID [facility] Stop: 11/01/21 08:59 Last Admin: 10/02/21 09:57 Dose: 20 mg Documented by: [id number] Magnesium Oxide (Magnesium Oxide 400 Mg Tab) 400 mg PO DAILY [facility] Stop: 11/01/21 08:59 Last Admin: 10/02/21 09:57 Dose: 400 mg Documented by: [id number] Pantoprazole Sodium (Pantoprazole 40 Mg Tab) 40 mg PO DAILY [facility] Stop: 11/01/21 08:59 Last Admin: 10/02/21 09:57 Dose: 40 mg Documented by: [id number] Potassium Chloride (Potassium Chloride Crtab 20 Meq Tabcr) 40 meq PO Q6H [facility] Stop: 10/02/21 14:01 Last Admin: 10/02/21 09:54 Dose: 40 meq Documented by: [id number] Trimethoprim/Sulfamethoxazole (Sulfamethoxazole/Trimethoprim Ds 800/160mg Tab) 2 tab PO Q24H [facility]; Protocol Stop: 10/09/21 08:59 Last Admin: 10/02/21 09:57 Dose: 2 tab Documented by: [id number] Discontinued Medications Albuterol (Albut/Ipratrop 3mg/0.5mg Neb 3 Ml Vial) 3 ml NEB NOW STA; Protocol Stop: 10/01/21 20:59 Last Admin: 10/01/21 21:09 Dose: 3 ml Documented by: [id number] Sodium Chloride (Nss) 500 mls @ 999 mls/hr IV .Q31M [facility] Stop: 10/01/21 20:45 Last Infusion: 10/01/21 21:22 Dose: 0 mls/hr Documented by: [id number] Admin: 10/01/21 20:48 Dose: 999 mls/hr Documented by: [id number] Magnesium Sulfate/Dextrose (Magnesium Sulfate / D5w) 1 gm in 100 mls @ 50 mls/hr IV Q2H [facility] Stop: 10/02/21 00:15 Last Infusion: 10/02/21 00:55 Dose: 0 mls/hr Documented by: [id number] Admin: 10/01/21 22:33 Dose: 50 mls/hr Documented by: [id number] Description This is a 21 electrode EEG with a single channel dedicated to limited EKG. The electrodes were placed in accordance with the International 10-20 system. There is a posterior dominant rhythm of 10 Hz which is symmetrically distributed and attenuates with eye opening. There is a normal anterior to posterior organization. There is a frontally predominant photic driving response at various frequencies of photic stimulation. There is a symmetric frontal beta rhythm. There is no focal slowing. There are no epileptiform abnormalities. Interpretation Relatively normal-appearing awake/drowsy EEG. This patient does have frontally predominant photic driving response which is nonspecific and could relate to advanced age, medication effect, diminished level of alertness, or underlying metabolic abnormality. There is no supportive evidence of epilepsy or seizure disorder. [facility] EEG Procedure Codes Indication for Procedure (1) Seizure-like activity: Neurology Neurology: [id number] EEG include record awake & drowsy
[2021-10-02] MEDS: PREGABALIN 50 MG CAP PO SCH (11:57)
--- NOTE | 2021-10-02 15:11 | Hospitalist Progress Note ---
Date of Service October 02, 2021 Assessment & Plan (1) Syncope and collapse: Plan: Mrs. Sarmiento is an 86 yo woman who is being admitted for evaluation of increasingly frequent falls, intermittent tremors and word finding difficulties. - Cause of syncope is unknown at this time - She has had an extensive work up, nothing of which has been grossly abnormal, including MRI brain, EEG, CT head/cervical spine/face and chest - The myoclonic jerking is also uncertain -- ?tick - No echo ordered, will obtain this to eval LV function and valves - Will need a 30-day event monitor as outpatient - Hold off on neuro consult as this does not appear to be a neurologic cause - Orthostatics are negative - PT/OT eval and treat (2) Hypoxia: Plan: - O2 sat recorded as low as 87 % on room air --> improved to 100% on 2L via NC after duo neb administration - no history of underlying lung disease (although she is a former smoker) - COVID 19 neg - Chest CT showing no focal consolidation or nodules; mild emphysematous changes and mild interstitial fibrotic changes noted - etiology uncertain: infection seems unlikely; wells score of 0, PE unlikely. 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 of undiagnosed COPD - recommend formal PFTs as outpatient - ambulatory pulse ox ordered (3) Elevated serum creatinine: Plan: - Cr 2.38, BUN at 31--improved to 1.94 with hydration - Cr from Jun 2020 was 1.91--data is limited in the system, uncertain what her baseline is - renally dose meds as appropriate; avoid contrast dye - NSS ordered x 2 bags then stop - trend CMP (4) Anemia: Plan: - Hgb 9.5, MCV 90 - normocytic anemia - iron panel ordered - continue home ferrous sulfate, B12 and folate supplements (5) Hypokalemia: Plan: - NSS with 20meq Kcl ordered - patient is on home lasix dose - Potassium this morning 3.0 -- orally replaced - Repeat in AM (6) Hypomagnesemia: Plan: - low at 1.0 - patient takes mag-ox supplement as outpatient - consider switching to mag - chloride for improved absoprtion - IV mag sulfate ordered - repeat Mag level this morning is WNL at 2.0 (7) Foot ulcer, left: Plan: - wound care nurse consulted - per patient, wound culture grew MRSA - continue Bactrim (renally dosed at 1 tab q12) (8) Elevated AST (SGOT): Plan: - level at 40 - repeat CMP in am (9) Neuropathic pain: Plan: - home dose of lyrica is 75mg daily - considering CrCl is < 15mL/minute, 75mg daily dose is at upper limit - will reduce dose to 50mg daily (10) Gout: Plan: - continue home allopurinol dose (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 She was hospitalized 10/01 for recurrent falls. Pt notes that she fell Saturday, no symptoms prior, just fell while in the bathroom and struck her face. She was in her living room when she fell on Saturday. Doesn't remember the events. Denies symptoms of lightheadedness/dizziness prior to the falls. She has also had issues with her upper extremities and experiencing intermittent jerking type movements but she states they were much worse on Saturday. She has no h/o seizure d/o. Denies being incontinent of urine or biting her tongue after the event. Denies confusion after the event as well. She presently has no symptoms, denies chest pain, palpitations, n/v/d, f/c, headache, or gu symptoms. Review of Systems Review of Systems: CONSTITUTIONAL: Denies weight loss/gain, fever and chills, fatigue, malaise, generalized weakness. HEENT: Denies changes in vision and hearing. RESPIRATORY: Denies SOB, cough, wheezing. CV: Denies palpitations, CP, lower extremity edema, orthopnea, PND. GI: Denies abdominal pain, nausea, vomiting and diarrhea. : Denies dysuria and urinary frequency, urgency, hesitancy. MUSCULOSKELETAL: Denies myalgia and joint pain. SKIN: Denies rash and pruritus. NEUROLOGICAL: Recurrent falls w/o warning. Denies headache, syncope, focal weakness, numbness, tingling. PSYCHIATRIC: Denies recent changes in mood. Denies anxiety and depression. Physical Exam Physical Exam: GENERAL: 86 yo WD/WN elderly WF. NAD. LUNGS: Clear to auscultation bilaterally. No accessory muscle use. No W/R/R. CARDIOVASCULAR: Regular rate and rhythm. No M/G/R. No JVD. ABDOMEN: Soft, non-tender and non-distended. No palpable masses. Bowel sounds normoactive x 4 quad. EXTREMITIES: No edema. Non-tender. Peripheral pulses +2/4. NEUROLOGIC: A&O x3. No focal neurological deficits. CN II-XII grossly intact. No resting tremor or intention tremor observed. PSYCHIATRIC: Cooperative. Appropriate mood and affect. SKIN: Ecchymosis noted on face. Warm, dry, intact. No rashes or lesions. Results & Data Results & Data ([facility]) Vital Signs (Past 12 Hours) Vital Signs Temp Pulse Pulse Resp Resp BP Pulse Ox 10/02/21 13:12 70 20 10/02/21 07:41 10/02/21 07:32 36.9 C 72 18 105/51 L 95 Pulse Ox Pulse Ox 10/02/21 13:12 91 10/02/21 07:41 98 10/02/21 07:32 Laboratory Results 10/01/21 20:24 10/02/21 04:42 PG Care Time/CCT Total # of Minutes Spent Total Time Spent with Patient: Total time spent is greater than 50% in coordination of care (as documented) at patient's floor/unit and/or counseling patient: Coding Level of Care Code 14359 Subseq Obs Care Lvl 2 Diagnoses Hypoxia R09.02 Elevated serum creatinine R79.89 Anemia D64.9 Hypokalemia E87.6 Hypomagnesemia E83.42 Foot ulcer, left L97.529 Elevated AST (SGOT) R74.01 Neuropathic pain M79.2 Gout M10.9 Lewis esophagus K22.70 CHF (congestive heart failure) I50.9 Hypothyroidism E03.9 Syncope and collapse R55
--- NOTE | 2021-10-02 17:04 | XCELERA ---
[id number]
[2021-10-03 05:13] LABS: Basophils # (auto) 0.02 K/uL (0-0.2); Basophils % (auto) 0.2 %; Eosinophils # (auto) 0.13 K/uL (0-0.5); Eosinophils % (auto) 1.4 %; Hematocrit (blood only) 29.9 % (37-47); Hemoglobin 9.6 g/dL (12.0-16.0); Immature Granulocytes # (auto) 0.02 K/uL (0.00-0.02); Immature Granulocytes % (auto) 0.2 %; Lymphocytes # (auto) 1.89 K/uL (1.2-3.4); Mean Corpuscular Hemoglobin 28.7 pg (25-34); Mean Corpuscular Hgb Conc 32.1 g/dL (32-36); Mean Corpuscular Volume 89.3 fL (80-100); Mean Platelet Volume 9.6 fL (7.4-10.4); Monocytes % (auto) 4.2 %; Neutrophils # (auto) 6.98 K/uL (1.4-6.5); Platelet Count 316 K/uL (130-400); RDW Coefficient of Variation 16.4 % (11.5-14.5); RDW Standard Deviation 53.2 fL (36.4-46.3); Red Blood Count 3.35 M/uL (4.2-5.4); White Blood Count 9.44 K/uL (4.8-10.8)
[2021-10-03 05:51] LABS: Albumin Level 2.2 gm/dl (3.4-5.0); BUN Creatinine Ratio 13.3 (10-20); Calcium 7.9 mg/dl (8.5-10.1); Est GFR (African American) 35.9 ml/min; Potassium 5.5 mmol/L (3.5-5.1)
[2021-10-03 05:53] LABS: Albumin Globulin Ratio 0.6 (0.9-2); Bilirubin,Total 0.4 mg/dl (0.2-1); Globulin 3.8 gm/dl (2.5-4.0)
[2021-10-03] MEDS ORDERED: PATIROMER CALCIUM SORBITEX 8.4 GM PACK PO ONE ×2 (08:30→13:00)
[2021-10-03] MEDS: FERROUS SULFATE 325 MG TAB PO SCH ×2 (10:05→16:43)
[2021-10-03] MEDS: allopurinoL 100 MG TAB PO SCH (10:06)
[2021-10-03] MEDS: ASPIRIN 81 MG ECTAB PO SCH (10:07)
[2021-10-03] MEDS: CYANOCOBALAMIN 500 MCG TABLET (VITAMIN B-12) PO SCH (10:08)
[2021-10-03] MEDS: ATENOLOL 25 MG TABLET PO SCH (10:08)
[2021-10-03] MEDS: ESTROGENS, CONJUGATED 0.45 MG TAB PO SCH (10:09)
[2021-10-03] MEDS: DOCUSATE SODIUM 100 MG CAP PO SCH ×2 (10:09→22:08)
[2021-10-03] MEDS: FOLIC ACID 400 MCG TAB PO SCH (10:10)
[2021-10-03] MEDS: FUROSEMIDE 40 MG TAB PO SCH (10:10)
[2021-10-03] MEDS: HEPARIN SOD 5,000 UNIT/0.5 ML VIAL SQ SCH ×2 (10:11→22:07)
[2021-10-03] MEDS: IMIPRAMINE HCL 10 MG TAB PO SCH ×2 (10:11→22:07)
[2021-10-03] MEDS: MAGNESIUM OXIDE 400 MG TAB PO SCH (10:12)
[2021-10-03] MEDS: PANTOprazole 40 MG TAB PO SCH (10:12)
[2021-10-03] MEDS: SULFAMETHOXAZOLE/TRIMETHOPRIM DS 800/160MG TAB PO SCH ×2 (10:13→22:08)
[2021-10-03] MEDS: PREGABALIN 50 MG CAP PO SCH (10:13)
--- NOTE | 2021-10-03 14:37 | Hospitalist Progress Note ---
Date of Service October 03, 2021 Assessment & Plan (1) Syncope and collapse: Plan: Mrs. Sarmiento is an 86 yo woman who is being admitted for evaluation of increasingly frequent falls, intermittent tremors and word finding difficulties. - Cause of syncope is unknown at this time - She has had an extensive work up, nothing of which has been grossly abnormal, including MRI brain, EEG, CT head/cervical spine/face and chest - The myoclonic jerking is also uncertain -- ?tick - Echo performed, LVEF normal at 55-60%, mild MR, normal RSVP - Will need a 30-day event monitor as outpatient - Hold off on neuro consult as this does not appear to be a neurologic cause - Orthostatics negative - PT/OT recommending acute rehab (2) Hypoxia: Plan: - O2 sat recorded as low as 87 % on room air --> improved to 100% on 2L via NC after duo neb administration - no history of underlying lung disease (although she is a former smoker) - COVID 19 neg - Chest CT showing no focal consolidation or nodules; mild emphysematous changes and mild interstitial fibrotic changes noted - etiology uncertain: infection seems unlikely; wells score of 0, PE unlikely. 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 2-step performed this AM has demonstrated no desaturation with ambulation (3) Elevated serum creatinine: Plan: - Cr 2.38, BUN at 31--improved with hydration--today 1.50 - Cr from Jun 2020 was 1.91--data is limited in the system, uncertain what her baseline is - renally dose meds as appropriate; avoid contrast dye (4) Anemia: Plan: - Hgb 9.5, MCV 90 - normocytic anemia - iron panel ordered - continue home ferrous sulfate, B12 and folate supplements (5) Hypokalemia: Plan: - NSS with 20meq Kcl ordered - patient is on home lasix dose - Potassium this morning 3.0 on 10/02, oral replacement ordered in addition to additive in fluid - Today is overcorrected, K+ 5.5, ordered dose of Patiromerx1 (6) Hypomagnesemia: Plan: - low at 1.0 - patient takes mag-ox supplement as outpatient - consider switching to mag - chloride for improved absoprtion - IV mag sulfate ordered - repeat Mag level 10/02 WNL at 2.0 (7) Foot ulcer, left: Plan: - wound care nurse consulted - per patient, wound culture grew MRSA - continue Bactrim (renally dosed at 1 tab q12) (8) Elevated AST (SGOT): Plan: - level at 40 - repeat CMP in am (9) Neuropathic pain: Plan: - home dose of lyrica is 75mg daily - considering CrCl is < 15mL/minute, 75mg daily dose is at upper limit - will reduce dose to 50mg daily (10) Gout: Plan: - continue home allopurinol dose (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 will make pt full admit to med w/ tele. info sent to [facility]. Admission and Anticipated Discharge Date Admission Date: October 03, 2021 Subjective Patient seen on rounds this morning. She was hospitalized 10/01 for recurrent falls. She presently has no symptoms, denies chest pain, dyspnea, lightheadedness, dizziness, palpitations, n/v/d, f/c, headache, or gu symptoms. Denies recurrence of jerking movements. Off supplemental O2. RT performed two step and no need for supplemental oxygen at rest or with exertion. OT felt pt could go home but PT felt she would benefit from rehab as she was unsteady with a walker. Review of Systems Review of Systems: CONSTITUTIONAL: Denies weight loss/gain, fever and chills, fatigue, malaise, generalized weakness. HEENT: Denies changes in vision and hearing. RESPIRATORY: Denies SOB, cough, wheezing. CV: Denies palpitations, CP, lower extremity edema, orthopnea, PND. GI: Denies abdominal pain, nausea, vomiting and diarrhea. : Denies dysuria and urinary frequency, urgency, hesitancy. MUSCULOSKELETAL: Denies myalgia and joint pain. SKIN: Denies rash and pruritus. NEUROLOGICAL: Recurrent falls w/o warning. Denies headache, syncope, focal weakness, numbness, tingling. PSYCHIATRIC: Denies recent changes in mood. Denies anxiety and depression. Physical Exam Physical Exam: GENERAL: 86 yo WD/WN elderly WF. NAD. LUNGS: Clear to auscultation bilaterally. No accessory muscle use. No W/R/R. CARDIOVASCULAR: Regular rate and rhythm. No M/G/R. No JVD. ABDOMEN: Soft, non-tender and non-distended. No palpable masses. Bowel sounds normoactive x 4 quad. EXTREMITIES: No edema. Non-tender. Peripheral pulses +2/4. NEUROLOGIC: A&O x3. No focal neurological deficits. Mild resting tremor noted during visit this AM. PSYCHIATRIC: Cooperative. Appropriate mood and affect. SKIN: Ecchymosis noted on face. Warm, dry, intact. No rashes or lesions. Results & Data Results & Data ([facility]) Vital Signs (Past 12 Hours) Vital Signs Temp Pulse Pulse Pulse Pulse Resp Resp 10/03/21 14:02 79 62 58 L 20 10/03/21 09:40 36.8 C 66 20 10/03/21 09:30 10/03/21 04:00 80 18 Resp Resp BP Pulse Ox Pulse Ox Pulse Ox Pulse Ox 10/03/21 14:02 16 18 94 99 10/03/21 09:40 93/68 L 99 10/03/21 09:30 98 10/03/21 04:00 116/52 L 96 Pulse Ox 10/03/21 14:02 94 10/03/21 09:40 10/03/21 09:30 10/03/21 04:00 Laboratory Results 10/03/21 04:46 10/03/21 04:46 PG Care Time/CCT Total # of Minutes Spent Total Time Spent with Patient: Total time spent is greater than 50% in coordination of care (as documented) at patient's floor/unit and/or counseling patient: Coding Level of Care Code 80902 Subseq Hosp Care Lvl 2 Diagnoses Syncope and collapse R55 Hypoxia R09.02 Elevated serum creatinine R79.89 Anemia D64.9 Hypokalemia E87.6 Hypomagnesemia E83.42 Foot ulcer, left L97.529 Elevated AST (SGOT) R74.01 Neuropathic pain M79.2 Gout M10.9 Lewis esophagus K22.70 CHF (congestive heart failure) I50.9 Hypothyroidism E03.9
[2021-10-03 16:05] LABS: Appearance Urine Clear (Clear); Bilirubin Urine Negative (Negative); Blood Urine Negative (Negative); Color Urine Yellow; Glucose Urine UA Negative (Negative); Ketones Urine Negative (Negative); Leukocyte Esterase Urine Negative (Negative); Nitrite Urine Negative (Negative); Protein Urine Negative (Negative); Specific Gravity Urine 1.012 (1.000-1.030); Urobilinogen Urine Negative (Negative)
[2021-10-04] MEDS ORDERED: traMADol HCL 50 MG TABLET PO STA (03:17)
[2021-10-04] MEDS: MAGNESIUM OXIDE 400 MG TAB PO SCH (08:57)
[2021-10-04] MEDS: ESTROGENS, CONJUGATED 0.45 MG TAB PO SCH (08:58)
[2021-10-04] MEDS: FOLIC ACID 400 MCG TAB PO SCH (08:58)
[2021-10-04] MEDS: PANTOprazole 40 MG TAB PO SCH (08:59)
[2021-10-04] MEDS: FERROUS SULFATE 325 MG TAB PO SCH ×2 (09:00→18:33)
[2021-10-04] MEDS: SULFAMETHOXAZOLE/TRIMETHOPRIM DS 800/160MG TAB PO SCH ×2 (09:00→22:37)
[2021-10-04] MEDS: IMIPRAMINE HCL 10 MG TAB PO SCH ×2 (09:00→22:38)
[2021-10-04] MEDS: allopurinoL 100 MG TAB PO SCH (09:01)
[2021-10-04] MEDS: ASPIRIN 81 MG ECTAB PO SCH (09:01)
[2021-10-04] MEDS: CYANOCOBALAMIN 500 MCG TABLET (VITAMIN B-12) PO SCH (09:02)
[2021-10-04] MEDS: DOCUSATE SODIUM 100 MG CAP PO SCH ×2 (09:03→22:37)
[2021-10-04] MEDS: PREGABALIN 50 MG CAP PO SCH (09:07)
[2021-10-04] MEDS: FUROSEMIDE 40 MG TAB PO SCH (09:08)
[2021-10-04] MEDS: ATENOLOL 25 MG TABLET PO SCH (09:09)
[2021-10-04] MEDS: HEPARIN SOD 5,000 UNIT/0.5 ML VIAL SQ SCH ×2 (09:09→22:39)
--- NOTE | 2021-10-04 14:22 | Hospitalist Progress Note ---
Date of Service October 04, 2021 Assessment & Plan (1) Syncope and collapse: Plan: Mrs. Sarmiento is an 86 yo woman who is being admitted for evaluation of increasingly frequent falls, intermittent tremors and word finding difficulties. - Cause of syncope is unknown at this time - She has had an extensive work up, nothing of which has been grossly abnormal, including MRI brain, EEG, CT head/cervical spine/face and chest - The myoclonic jerking is also uncertain -- ?tick - Echo performed, LVEF normal at 55-60%, mild MR, normal RSVP - Will need a 30-day event monitor as outpatient - Hold off on neuro consult as this does not appear to be a neurologic cause - Orthostatics negative - PT/OT recommending acute rehab (2) Hypoxia: Plan: - O2 sat recorded as low as 87 % on room air --> improved to 100% on 2L via NC after duo neb administration - no history of underlying lung disease (although she is a former smoker) - COVID 19 neg - Chest CT showing no focal consolidation or nodules; mild emphysematous changes and mild interstitial fibrotic changes noted - etiology uncertain: infection seems unlikely; wells score of 0, PE unlikely. 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 2-step performed this AM has demonstrated no desaturation with ambulation (3) Acute kidney injury: Plan: - Cr 2.38, BUN at 31 on admission--improved with hydration--today 1.50 - Cr from Jun 2020 was 1.91--data is limited in the system, uncertain what her baseline is - renally dose meds as appropriate; avoid contrast dye - DAE has resolved at this time (4) CKD (chronic kidney disease): Plan: - Definitely has a component of CKD - Uncertain what her baseline GFR/Creat is due to limited data in this system (5) Anemia: Plan: - Hgb 9.5, MCV 90 - normocytic anemia - iron panel ordered - continue home ferrous sulfate, B12 and folate supplements (6) Hypokalemia: Plan: - overcorrected and was 5.5 yesterday - repeat K+ normal at 4.9 today (7) Hypomagnesemia: Plan: - replaced/resolved (8) Foot ulcer, left: Plan: - possible etiology is from pressure, stage 3 - wound care nurse consulted - per patient, wound culture grew MRSA - continue Bactrim (renally dosed at 1 tab q12) (9) Elevated AST (SGOT): Plan: - repeat CMP in AM (10) Neuropathic pain: Plan: - home dose of lyrica is 75mg daily - considering CrCl is < 15mL/minute, 75mg daily dose is at upper limit - will reduce dose to 50mg daily (11) Gout: Plan: - continue home allopurinol dose (12) Lewis esophagus: Plan: - continue home dose omeprazole (13) CHF (congestive heart failure): Plan: - patient takes atenolol 25mg daily and lasix 40mg daily, presumably for diastolic dysfunction - continue home medication regimen - continue compression stockings (14) Hypothyroidism: Plan: - continue home dose levothyroxine - TSH WNL on admission Plan: Follow up labs in AM Heparin for DVT ppx PT/OT eval -- recommending rehab, d/w case management. will make pt full admit to med w/ tele. Referral sent to [facility], auth pending. Admission and Anticipated Discharge Date Admission Date: October 03, 2021 Subjective Patient seen on rounds this morning. She was hospitalized 10/01 for recurrent falls. She presently has no symptoms, denies chest pain, dyspnea, lighthe adedness, dizziness, palpitations, n/v/d, f/c, headache, or gu symptoms. Denies recurrence of jerking movements. Off supplemental O2. RT performed two step and no need for supplemental oxygen at rest or with exertion. OT felt pt could go home but PT felt she would benefit from rehab as she was unsteady with a walker. Review of Systems Review of Systems: CONSTITUTIONAL: Denies weight loss/gain, fever and chills, fatigue, malaise, generalized weakness. HEENT: Denies changes in vision and hearing. RESPIRATORY: Denies SOB, cough, wheezing. CV: Denies palpitations, CP, lower extremity edema, orthopnea, PND. GI: Denies abdominal pain, nausea, vomiting and diarrhea. : Denies dysuria and urinary frequency, urgency, hesitancy. MUSCULOSKELETAL: Denies myalgia and joint pain. SKIN: Denies rash and pruritus. NEUROLOGICAL: Recurrent falls w/o warning. Denies headache, syncope, focal weakness, numbness, tingling. PSYCHIATRIC: Denies recent changes in mood. Denies anxiety and depression. Physical Exam Physical Exam: GENERAL: 86 yo WD/WN elderly WF. NAD. LUNGS: Clear to auscultation bilaterally. No accessory muscle use. No W/R/R. CARDIOVASCULAR: Regular rate and rhythm. No M/G/R. No JVD. ABDOMEN: Soft, non-tender and non-distended. No palpable masses. Bowel sounds normoactive x 4 quad. EXTREMITIES: No edema. Non-tender. Peripheral pulses +2/4. NEUROLOGIC: A&O x3. No focal neurological deficits. Mild resting tremor noted during visit this AM. PSYCHIATRIC: Cooperative. Appropriate mood and affect. SKIN: Ecchymosis noted on face. Warm, dry, intact. No rashes or lesions. Results & Data Results & Data ([facility]) Vital Signs (Past 12 Hours) Vital Signs Pulse Resp BP Pulse Ox 10/04/21 09:07 56 L 16 146/65 H 95 10/04/21 06:23 61 16 123/39 L 92 Laboratory Results 10/03/21 04:46 10/04/21 14:37 PG Care Time/CCT Total # of Minutes Spent Total Time Spent with Patient: Total time spent is greater than 50% in coordination of care (as documented) at patient's floor/unit and/or counseling patient: Coding Level of Care Code 48782 Subseq Hosp Care Lvl 1 Diagnoses Syncope and collapse R55 Hypoxia R09.02 Anemia D64.9 Hypokalemia E87.6 Hypomagnesemia E83.42 Foot ulcer, left L97.529 Elevated AST (SGOT) R74.01 Neuropathic pain M79.2 Gout M10.9 Lewis esophagus K22.70 CHF (congestive heart failure) I50.9 Hypothyroidism E03.9 Acute kidney injury N17.9 CKD (chronic kidney disease) N18.9
[2021-10-04 15:18] LABS: BUN Creatinine Ratio 11.6 (10-20); Calcium 8.9 mg/dl (8.5-10.1); Creatinine Clr Calc Pharmacy 20.2 ml/min; Est GFR (African American) 41.2 ml/min; Est GFR (Non-African American) 35.5 ml/min; Potassium 4.9 mmol/L (3.5-5.1)
[2021-10-05 04:53] LABS: Albumin Level 2.4 gm/dl (3.4-5.0); BUN Creatinine Ratio 12.7 (10-20); Creatinine Clr Calc Pharmacy 23.3 ml/min; Est GFR (Non-African American) 42.3 ml/min; Potassium 5.1 mmol/L (3.5-5.1)
[2021-10-05 04:56] LABS: Albumin Globulin Ratio 0.7 (0.9-2); Bilirubin,Total 0.4 mg/dl (0.2-1); Globulin 3.5 gm/dl (2.5-4.0); Total Protein 5.9 gm/dl (6.4-8.2)
[2021-10-05] MEDS: PREGABALIN 50 MG CAP PO SCH (10:32)
[2021-10-05] MEDS: MAGNESIUM OXIDE 400 MG TAB PO SCH (10:33)
[2021-10-05] MEDS: PANTOprazole 40 MG TAB PO SCH (10:33)
[2021-10-05] MEDS: IMIPRAMINE HCL 10 MG TAB PO SCH ×2 (10:33→20:55)
[2021-10-05] MEDS: FUROSEMIDE 40 MG TAB PO SCH (10:33)
[2021-10-05] MEDS: CYANOCOBALAMIN 500 MCG TABLET (VITAMIN B-12) PO SCH (10:34)
[2021-10-05] MEDS: FOLIC ACID 400 MCG TAB PO SCH (10:34)
[2021-10-05] MEDS: ESTROGENS, CONJUGATED 0.45 MG TAB PO SCH (10:34)
[2021-10-05] MEDS: ASPIRIN 81 MG ECTAB PO SCH (10:34)
[2021-10-05] MEDS: HEPARIN SOD 5,000 UNIT/0.5 ML VIAL SQ SCH ×2 (10:35→20:55)
[2021-10-05] MEDS: SULFAMETHOXAZOLE/TRIMETHOPRIM DS 800/160MG TAB PO SCH ×2 (10:35→20:55)
[2021-10-05] MEDS: allopurinoL 100 MG TAB PO SCH (10:35)
[2021-10-05] MEDS: FERROUS SULFATE 325 MG TAB PO SCH ×2 (10:35→16:45)
[2021-10-05] MEDS: ATENOLOL 25 MG TABLET PO SCH (10:35)
[2021-10-05] MEDS: DOCUSATE SODIUM 100 MG CAP PO SCH ×2 (10:36→20:58)
--- NOTE | 2021-10-05 12:59 | Hospitalist Progress Note ---
Date of Service October 05, 2021 Assessment & Plan (1) Syncope and collapse: Plan: - Cause of syncope is unknown at this time - She has had an extensive work up, nothing of which has been grossly abnormal, including MRI brain, EEG, CT head/cervical spine/face and chest - The myoclonic jerking is also uncertain -- ?tic - Echo performed, LVEF normal at 55-60%, mild MR, normal RSVP - Will need a 30-day event monitor as outpatient - Hold off on neuro consult as this does not appear to be a neurologic cause - Orthostatics negative - PT/OT recommending acute rehab (2) Bradycardia: Plan: - Pt now with bradycardia while sleeping, rates dipping into the 30-40s with pauses -- ?cause of syncope - She is on Atenolol at home for HTN, will stop this medication - I have reached out to Dr. Quesada and asked him to see in consult, appreciate his recommendations (3) Hypoxia: Plan: RESOLVED - O2 sat recorded as low as 87 % on room air --> improved to 100% on 2L via NC after duo neb administration - no history of underlying lung disease (although she is a former smoker) - COVID 19 neg - Chest CT showing no focal consolidation or nodules; mild emphysematous changes and mild interstitial fibrotic changes noted - etiology uncertain: infection seems unlikely; wells score of 0, PE unlikely. 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 2-step performed this AM has demonstrated no desaturation with ambulation (4) Acute kidney injury: Plan: - Cr 2.38, BUN at 31 on admission--improved with hydration--today 1.16 - Cr from Jun 2020 was 1.91--data is limited in the system, uncertain what her baseline is - renally dose meds as appropriate; avoid contrast dye - DAE has resolved at this time (5) CKD (chronic kidney disease): Plan: - Definitely has a component of CKD - Uncertain what her baseline GFR/Creat is due to limited data in this system (6) Anemia: Plan: - Hgb 9.5, MCV 90 - normocytic anemia - iron panel ordered - continue home ferrous sulfate, B12 and folate supplements (7) Foot ulcer, left: Plan: - possible etiology is from pressure, stage 3 - wound care nurse consulted - per patient, wound culture grew MRSA - continue Bactrim (renally dosed at 1 tab q12) (8) Neuropathic pain: Plan: - home dose of lyrica is 75mg daily - considering CrCl is < 15mL/minute, 75mg daily dose is at upper limit - will reduce dose to 50mg daily (9) Gout: Plan: - continue home allopurinol dose (10) Lewis esophagus: Plan: - continue home dose omeprazole (11) CHF (congestive heart failure): Plan: - patient takes atenolol 25mg daily and lasix 40mg daily, presumably for diastolic dysfunction - continue home medication regimen - continue compression stockings (12) Hypothyroidism: Plan: - continue home dose levothyroxine - TSH WNL on admission Plan: Follow up labs in AM Heparin for DVT ppx PT/OT eval -- recommending rehab, d/w case management. will make pt full admit to med w/ tele. Referral sent to [facility], auth pending. Hold d/c until after cardiac eval. Admission and Anticipated Discharge Date Admission Date: October 03, 2021 Subjective Patient seen on rounds this morning. She was hospitalized 10/01 for recurrent falls. She presently has no symptoms, denies chest pain, dyspnea, lightheadedness, dizziness, palpitations, n/v/d, f/c, headache, or gu symptoms. Denies recurrence of jerking movements. Off supplemental O2. RT performed two step and no need for supplemental oxygen at rest or with exertion. OT felt pt could go home but PT felt she would benefit from rehab as she was unsteady with a walker. Alerted this afternoon by RN that pt is now having bradycardia on the monitor with rates as low as 30 with pauses while sleeping. She is on Atenolol at home which she received this morning, but her HR this AM was in the 70s at time of administration. Review of Systems Review of Systems: CONSTITUTIONAL: Denies weight loss/gain, fever and chills, fatigue, malaise, generalized weakness. HEENT: Denies changes in vision and hearing. RESPIRATORY: Denies SOB, cough, wheezing. CV: Denies palpitations, CP, lower extremity edema, orthopnea, PND. GI: Denies abdominal pain, nausea, vomiting and diarrhea. : Denies dysuria and urinary frequency, urgency, hesitancy. MUSCULOSKELETAL: Denies myalgia and joint pain. SKIN: Denies rash and pruritus. NEUROLOGICAL: Recurrent falls w/o warning. Denies headache, syncope, focal weakness, numbness, tingling. PSYCHIATRIC: Denies recent changes in mood. Denies anxiety and depression. Physical Exam Physical Exam: GENERAL: 86 yo WD/WN elderly WF. NAD. LUNGS: Clear to auscultation bilaterally. No accessory muscle use. No W/R/R. CARDIOVASCULAR: Regular rate and rhythm. No M/G/R. No JVD. ABDOMEN: Soft, non-tender and non-distended. No palpable masses. Bowel sounds normoactive x 4 quad. EXTREMITIES: No edema. Non-tender. Peripheral pulses +2/4. NEUROLOGIC: A&O x3. No focal neurological deficits. Mild resting tremor noted during visit this AM. PSYCHIATRIC: Cooperative. Appropriate mood and affect. SKIN: Ecchymosis noted on face. Warm, dry, intact. No rashes or lesions. Results & Data Results & Data ([facility]) Vital Signs (Past 12 Hours) Vital Signs Temp Pulse Resp BP Pulse Ox Pulse Ox 10/05/21 11:52 36.6 C 52 L 15 116/64 94 10/05/21 07:27 36.8 C 67 13 141/57 H 93 10/05/21 07:00 92 10/05/21 04:00 63 18 138/64 90 10/05/21 01:08 62 18 139/55 L 91 Laboratory Results 10/03/21 04:46 10/05/21 04:24 PG Care Time/CCT Total # of Minutes Spent Total Time Spent with Patient: Total time spent is greater than 50% in coordination of care (as documented) at patient's floor/unit and/or counseling patient: Coding Level of Care Code 10928 Subseq Hosp Care Lvl 2 Diagnoses Syncope and collapse R55 Hypoxia R09.02 Acute kidney injury N17.9 CKD (chronic kidney disease) N18.9 Anemia D64.9 Foot ulcer, left L97.529 Neuropathic pain M79.2 Gout M10.9 Lewis esophagus K22.70 CHF (congestive heart failure) I50.9 Hypothyroidism E03.9 Bradycardia R00.1
--- NOTE | 2021-10-05 15:39 | Cardiology Consultation ---
Date of Consultation October 05, 2021 Assessment & Plan (1) Bradycardia: (2) Syncope and collapse: (3) Mitral regurgitation: 1. Bradycardia: Most of the time the patient's heart rates appear to be normal. She was noted to have bradycardia and brief periods involving sinus arrest likely while sleeping. The nurse reported her sleeping around that time the patient did report taking a nap before lunch which correlates quite well with these episodes. I do not believe this represents a clinical concern. However, atenolol seems to be a poor choice for an antihypertensive in an 86-year-old woman with a history of falls. I think better antihypertensives are available if needed. I would recommend discontinuing atenolol. Perhaps giving her half dose of atenolol for a couple of days in the discontinuing altogether would be the best option. If she were hypertensive subsequently alternate agents could be employed such as amlodipine, Jose inhibitor or ARB. 2. Syncope: Unclear if she truly lost consciousness. She does not report losing consciousness but her events are certainly suspicious for syncope. Discontinuing atenolol may be beneficial. I think an outpatient monitor for 30 days would also be helpful in identifying any undocumented arrhythmias or possibly correlating recurrent symptoms with arrhythmia. 3. Mitral regurgitation: Mild. Likely not a concern in the course of her lifetime. History of Present Illness Reason for Consultation: Bradycardia Requesting Physician: Cynthia Attending Physician: Luis Luna, History of Present Illness The patient is an 86-year-old woman without a known history of cardiac disease who was brought to the emergency room by her daughter after experiencing 2 recent falls. Patient apparently has a history of falls having suffered a few over the past few months. The patient recalls 3 falls in particular. To these occurred recently and were only a few days apart. In both episodes the patient did not recall losing consciousness. One episode occurred in the bathroom. She claimed to be standing at the sink and then found herself in the bathtub. She did suffer an injury to her face during that episode. Few days later she reports trying to sit down in her home and missing this seat and falling over to the side. She did not appear to have any symptoms leading up to these events. She does not report dizziness or lightheadedness at other times. She does not report a sense of palpitation. She claims to use a cane or a walker with ambulation most of the time. Curiously, she also appeared to have some facial and limb movements that were abnormal. She underwent a neurologic evaluation as result. Since her admission the patient has been on telemetry. Apparently this afternoon she was noted to have bradycardia and brief episodes of sinus arrest. The patient did not recall any of these episodes. She has not had any symptoms of dizziness or lightheadedness since admission. Allergies Allergy/AdvReac Type Severity Reaction Status Date / Time No Known Allergies Allergy Unknown ` Verified 10/01/21 23:19 Home Medications Medication Instructions Recorded Confirmed Type allopurinol 300 mg tablet 300 mg PO DAILY 10/01/21 10/01/21 History aspirin 81 mg tablet,delayed 81 mg PO DAILY 10/01/21 10/01/21 History release (Aspirin Low Dose) atenolol 25 mg tablet 25 mg PO DAILY 10/01/21 10/01/21 History furosemide 40 mg tablet 40 mg PO DAILY 10/01/21 10/01/21 History hydroxyzine HCl 25 mg tablet 25 mg PO HS PRN 10/01/21 10/01/21 History levothyroxine 50 mcg tablet 50 mcg PO DAILYBB 10/01/21 10/01/21 History pregabalin 75 mg capsule 75 mg PO DAILY 10/01/21 10/01/21 History sulfamethoxazole 800 1 tab PO BID 10/01/21 10/01/21 History mg-trimethoprim 160 mg tablet tolterodine 4 mg capsule,extended 4 mg PO DAILY 10/01/21 10/01/21 History release 24 hr tramadol 50 mg tablet 100 mg PO DAILY 10/01/21 10/01/21 History Patient History Medical History Hiatal hernia Hypertension Surgical History H/O bladder repair surgery H/O: hysterectomy History of back surgery Hx of cholecystectomy Social History Smoking Status: Never smoker Hx Alcohol Use: No Hx Substance Use: No Preferred Language: Greenlandic Communication Ability: Effective Art Dealer Required: No Beliefs That Will Affect Care: None Current Living Situation: Alone Feels Safe at Home: Yes Assistive Devices: Walker Review of Systems Review of Systems: Per HPI. No recent symptoms of fevers or chills. Some lower extremity edema on occasion which appears to be isolated to the ankles. Physical Exam Physical Exam: She is alert and oriented x3. Mood affect appear normal. She answered all questions appropriately. HEENT: Sclerae are anicteric. Left sclera was injected. are equal and reactive to light and accommodation. Extraocular movements were intact. Neuro: Cranial nerves intact Lungs: Lungs are clear to auscultation bilaterally. There are no rales wheezes or rhonchi. She has normal respiratory effort without use of accessory muscles. There is normal pulmonary excursion. Cardiac: The rhythm was regular. S1 and S2 were normal. There are no murmurs on examination. The PMI was not markedly displaced on palpation. Abdomen: The abdomen was soft and nontender. Extremities: Patient has bilateral radial pulses that are equal in intensity. There is no evidence cyanosis or clubbing. There was no evidence of significant peripheral edema bilaterally. Skin: There are no rashes noted on examination today. Ecchymosis noted in the face. Also laceration of the nose. Results & Data ([facility]) Vital Signs (Past 12 Hours) Vital Signs Temp Pulse Resp BP Pulse Ox Pulse Ox 10/05/21 11:52 36.6 C 52 L 15 116/64 94 10/05/21 07:27 36.8 C 67 13 141/57 H 93 10/05/21 07:00 92 10/05/21 04:00 63 18 138/64 90 Laboratory Results Abnormal Lab Results 10/05/21 10/05/21 04:24 07:24 Sodium 136 Potassium 5.1 Chloride 109 H Carbon Dioxide 23 Anion Gap 4.0 BUN 15 Creatinine 1.16 Est Cr Clr Drug Dosing 23.3 Est GFR ( Amer) 49.0 Est GFR (Non-Af Amer) 42.3 BUN/Creatinine Ratio 12.7 Glucose 75 POC Glucose 74 Calcium 9.0 Total Bilirubin 0.4 AST 25 ALT 21 Alkaline Phosphatase 106 Total Protein 5.9 L Albumin 2.4 L Globulin 3.5 Albumin/Globulin Ratio 0.7 L Diagnostic Findings Echocardiogram obtained on 10/02/2021: Normal LV systolic function. Mild mitral regurgitation. ECG Additional Comments: EKG obtained the time admission revealed normal sinus rhythm with 1st degree AV block and nonspecific ST and T-wave changes. PG Care Time/CCT Total # of Minutes Spent Total Time Spent with Patient: Total time spent is greater than 50% in coordination of care (as documented) at patient's floor/unit and/or counseling patient: Coding Level of Care Code 23501 Initial Inpt Care Lvl 3 Diagnoses Bradycardia R00.1 Syncope and collapse R55 Mitral regurgitation I34.0
[2021-10-05] MEDS ORDERED: MELATONIN 3 MG TAB PO PRN (23:32)
[2021-10-06] MEDS ORDERED: traMADol HCL 50 MG TABLET PO PRN (06:32)
[2021-10-06] MEDS: PREGABALIN 50 MG CAP PO SCH (08:09)
[2021-10-06] MEDS: SULFAMETHOXAZOLE/TRIMETHOPRIM DS 800/160MG TAB PO SCH (08:09)
[2021-10-06] MEDS: ASPIRIN 81 MG ECTAB PO SCH (08:11)
[2021-10-06] MEDS: DOCUSATE SODIUM 100 MG CAP PO SCH (08:11)
[2021-10-06] MEDS: CYANOCOBALAMIN 500 MCG TABLET (VITAMIN B-12) PO SCH (08:11)
[2021-10-06] MEDS: FERROUS SULFATE 325 MG TAB PO SCH (08:11)
[2021-10-06] MEDS: ESTROGENS, CONJUGATED 0.45 MG TAB PO SCH (08:12)
[2021-10-06] MEDS: FOLIC ACID 400 MCG TAB PO SCH (08:12)
[2021-10-06] MEDS: FUROSEMIDE 40 MG TAB PO SCH (08:13)
[2021-10-06] MEDS: HEPARIN SOD 5,000 UNIT/0.5 ML VIAL SQ SCH (08:13)
[2021-10-06] MEDS: MAGNESIUM OXIDE 400 MG TAB PO SCH (08:14)
[2021-10-06] MEDS: IMIPRAMINE HCL 10 MG TAB PO SCH (08:14)
[2021-10-06] MEDS: allopurinoL 100 MG TAB PO SCH (08:15)
[2021-10-06] MEDS: PANTOprazole 40 MG TAB PO SCH (08:15)
--- NOTE | 2021-10-06 08:24 | Discharge Summary ---
Date of Service October 06, 2021 Admission HPI Per Admitting Provider Mrs. Sarmiento is an 86 yo woman who was brought in to the [facility] ED by her daughter for evaluation after a fall. She fell in her home on 09/30/21 and struck the left side of her face. Her daughter states she has sustained 4-5 falls since the month of June 2021. Mrs. Sarmiento denies tripping - she denies any prodromal symptoms (chest flutter, graying of vision, dizziness/lightheadedness). She says "all of a sudden I am down." She does take a daily baby aspirin, but she is not on a thinner. In the days preceding this admission, she denies any acute illness (fever/chills, cough, congestion, dysuria, nausea/vomiting, diarrhea). However, over the past two weeks, she reports new intermittent "shakes/jerks" and word finding difficulty. She says they come on randomly and later self- resolve. The shakes affect her face/mouth and her upper extremities. Her daughter, who is present during the admission, attests that this is a marked change from her typical baseline. Of note, she is on a course of Bactrim for a MRSA + ulcer of the left foot. She wears a soft walking boot. Family Hx: mother had dementia, no hx of Parkinsons, no seizure disorders Social Hx: she lives alone; office of the aging is involved and plans to drip off a life alert necklace to her this coming week; no etoh; former smoker, quit 25 years ago, 20 pack year history. In the ED, she was afebrile with normal HR and blood pressure. Her O2 sat was as low as 87% on room air. Her WBC was normal, covid 19 test negative. Hgb low at 9.5, MCV 90. K low at 3.1. Mag low at 1.0. Cr elevated to 2.38, BUN at 31. AST elevated to 40, ALT WNL. Albumin low at 2.5. Trop undetectable. TSH WNL. EKG showing NSR. Head CT showing no acute abnormalities. C-spine CT showing degenerative changes without acute pathology. Face CT was normal. Chest CT showing evidence of a large air collection, seen anterior to the cervical and thoracic spine, extending all the way down to the stomach. 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 She was given 1 duo-neb and 500ml of NSS. Principal Diagnosis Syncope and collapse Discharge Exam General: well developed, thin elderly female, frail appearing, no acute distress, comfortable Neck: supple, trachea midline, normal thyroid Lungs: clear to auscultation bilaterally, normal respiratory effort, no accessory muscle use, no distress Heart: regular S1 and S2, no murmur, peripheral pulses normal, capillary refill normal, no edema Abdomen: soft, NT, ND, + BS, no hepatomegaly, normal to percussion Extremities: normal in appearance, no cyanosis, no petechiae, strength is diminished bilaterally Neuro: awake, cooperative, moves all extremities, no focal motor deficits, CN II-XII intact, sensation in extremities intact, normal speech Skin: warm, dry, no rash, normal turgor Psych: Awake, alert oriented x 3, euthymic affect Discharge Data Allergies Allergy/AdvReac Type Severity Reaction Status Date / Time No Known Allergies Allergy Unknown ` Verified 10/01/21 23:19 Consultations 10/01/21 20:53 ED Decision to Admit Stat 10/05/21 12:47 Consult Cardiology Routine Ordered Studies 10/01/21 19:02 CT cervical spine wo con Stat CT facial bones wo con Stat CT head/brain wo con Stat 10/01/21 19:22 CT chest diagnostic wo con Stat 10/01/21 22:16 MR brain wo con Routine Hospital Course (1) Syncope and collapse: - Cause of syncope is unknown at this time, could be related to bradycardia? pauses? see below - She has had an extensive work up, nothing of which has been grossly abnormal, including MRI brain, EEG, CT head/cervical spine/face and chest - Echo performed, LVEF normal at 55-60%, mild MR, normal RSVP - Will need a 30-day event monitor as outpatient - Hold off on neuro consult as this does not appear to be a neurologic cause - Orthostatics negative - PT/OT recommending acute rehab, accepted to [facility] (2) Bradycardia: - Pt now with bradycardia while sleeping, rates dipping into the 30-40s with pauses -- ?cause of syncope - She is on Atenolol at home for HTN, will stop this medication - consulted Dr. Quesada, cardiology, he recommends stopping Atenolol, no role for pacemaker will arrange for outpatient 30 day monitor (3) Hypoxia: RESOLVED - O2 sat recorded as low as 87 % on room air --> improved to 100% on 2L via NC after duo neb administration - no history of underlying lung disease (although she is a former smoker) - COVID 19 neg - Chest CT showing no focal consolidation or nodules; mild emphysematous changes and mild interstitial fibrotic changes noted - etiology uncertain: infection seems unlikely; wells score of 0, PE unlikely. Could be major account representative of undiagnosed COPD - recommend formal PFTs as outpatient - Pt weaned off O2 at rest. 2-step performed this AM has demonstrated no desaturation with ambulation (4) Acute kidney injury: - Cr 2.38, BUN at 31 on admission--improved with hydration--today 1.16, baseline - renally dose meds as appropriate; avoid contrast dye - DAE has resolved at this time (5) CKD (chronic kidney disease): - Definitely has a component of CKD - Uncertain what her baseline GFR/Creat is due to limited data in this system (6) Anemia: - Hgb 9.5, MCV 90 - normocytic anemia - iron panel ordered - continue home ferrous sulfate, B12 and folate supplements (7) Foot ulcer, left: - possible etiology is from pressure, stage 3 - wound care nurse consulted - per patient, wound culture grew MRSA - continue Bactrim (renally dosed at 1 tab q12) (8) Neuropathic pain: - home dose of lyrica is 75mg daily - considering CrCl is < 15mL/minute, 75mg daily dose is at upper limit - will reduce dose to 50mg daily (9) Gout: - continue home allopurinol dose (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 (11) CHF (congestive heart failure): - patient takes atenolol 25mg daily and lasix 40mg daily, presumably for diastolic dysfunction - stopped Atenolol due to bradycardia - continue compression stockings started amlodipine 2.5mg daily for hypertension (12) Hypothyroidism: - continue home dose levothyroxine - TSH WNL on admission d/c to [facility] Total Time Total Time Spent Total Time Spent (In Minutes): 32 minutes Total Time Includes: Examination of the Patient, Discharge Planning and Medication Reconciliation Discharge Plan Discharge Items Patient Disposition: Transfer Inpatient Rehab Fac Reason For Visit: FALLS Discharge Diagnosis: Falls Low heart rate Activity: Resume your previous activity Non-emergency contact: Primary Care Provider Call non-emergency contact if: you have any medication questions Follow-up/Referrals: Daljit Quesada MD [Physician] - (2 weeks) Dorian Mcnulty [Primary Care Provider] - Diet: Regular Addtl Attending Provider Instructions: * You have been hospitalized due to falls with an unclear reason to account for your falls. * You're work up consisted of a head CT, MRI of your brain, and an EEG --> everything appeared normal. * You also had an echocardiogram (ultrasound of your heart) which did not reveal any significant abnormalities. A slight leaky mitral valve was noted to be there but mild. * After being evaluated by physical and occupational therapy, it was recommended that you would benefit from a short stay in an acute rehabilitation hospital, [facility] * It was noted that your heart rate was running low while you were sleeping on 10/05, Dr. Quesada, a appliance assembler (heart doctor) saw you for this issue. It was recommended that you STOP your Atenolol which is a medication that not only lowers your blood pressure but also lowers your heart rate. * I have recommended that you follow up with your family doctor upon discharge from [facility]. * I would also recommend that you follow up with cardiology, Dr. Quesada in 2 weeks. * I would recommend that after you are discharged from [facility], that you wear a heart monitor for 30 days. This will be able to detect if you are having any abnormal heart rhythms which could have contributed to your falls. Dr. Quesada could order this or your primary care doctor could order this. * I have started you on low dose amlodipine 2.5mg daily for blood pressure control since the Atenolol is stopped Pending Studies at Discharge: No Stand-Alone Forms: My [facility] Skilled Items Patient informed of condition?: Yes DNR: No (okay with CPR, cardioversion, medications, does not want intubated) Discharge Level of Care: Acute rehab Communicable Disease: No Discharge Prognosis: Stable Lines: None Urinary Catheter: No Medications and DC Order Prescriptions: New imipramine HCl 10 mg Tablet 20 mg PO BID Qty: 60 RF: 0 ferrous sulfate 325 mg (65 mg iron) Tablet,Delayed Release (Dr/Ec) 325 mg PO BIDM Qty: 60 RF: 0 Premarin 0.45 mg Tablet 0.45 mg PO DAILY Qty: 30 RF: 0 pregabalin [Lyrica] 50 mg Capsule 50 mg PO DAILY Qty: 30 RF: 0 amlodipine [Norvasc] 5 mg Tablet 2.5 mg PO QAM 30 Days Qty: 15 RF: 3 Continued furosemide 40 mg tablet 40 mg PO DAILY RF: 0 tolterodine 4 mg capsule,extended release 24hr 4 mg PO DAILY RF: 0 sulfamethoxazole-trimethoprim 800-160 mg tablet 1 tab PO BID RF: 0 levothyroxine 50 mcg tablet 50 mcg PO DAILYBB RF: 0 allopurinol 300 mg tablet 300 mg PO DAILY RF: 0 aspirin [Aspirin Low Dose] 81 mg Tablet,Delayed Release (Dr/Ec) 81 mg PO DAILY RF: 0 hydroxyzine HCl 25 mg tablet 25 mg PO HS PRN (Reason: Insomnia) RF: 0 Discontinued tramadol 50 mg tablet 100 mg PO DAILY RF: 0 pregabalin 75 mg capsule 75 mg PO DAILY RF: 0 atenolol 25 mg tablet 25 mg PO DAILY RF: 0 Discharge Orders: Discharge Order (Routine); Ordered 10/06/21 Ordered By: Luis Luna Admission Data Admit Date/Time: 10/03/21 14:11 Attending Provider: Luis Luna Admit Provider: Bruna Beyer Primary Care Provider: Dorian Mcnulty Other Providers: Delores Mcclure ; [facility] ; [facility] ; Daljit Quesada. Other Interventions: Discharge Summary Assessment (RN) Last Done: 10/06/21 12:45 Coding Level of Care Code D/C DAY MANAGEMENT >30 MINS Diagnoses Syncope and collapse R55 Bradycardia R00.1 Hypoxia R09.02 Acute kidney injury N17.9 CKD (chronic kidney disease) N18.9 Anemia D64.9 Foot ulcer, left L97.529 Neuropathic pain M79.2 Gout M10.9 Lewis esophagus K22.70 CHF (congestive heart failure) I50.9 Hypothyroidism E03.9
[2021-10-06] MEDS ORDERED: amLODIPine BESYLATE 5 MG TAB PO SCH (09:00)
== END 2021-10-06 12:45 | DRG 309 ==
LOC: EDINP 18:34 → ED 18:34 → SUATTDRO 22:00 → EDINP 10-02 22:15

== ENCOUNTER 2023-01-16 23:48 | Inpatient (IN) ==
[2023-01-17] MEDS ORDERED: SODIUM CHLORIDE 0.9% 500 ML IV STA (00:25)
[2023-01-17] MEDS ORDERED: fentaNYL citrate PF 100 MCG/2 ML VIAL IV STA ×2 (00:25→01:40)
[2023-01-17] MEDS ORDERED: ONDANSETRON INJ 2 MG/ML 2 ML VIAL IV STA (00:25)
--- NOTE | 2023-01-17 00:31 | Emergency Department Note ---
Impression & Plan Abdominal pain, lower, Fecal retention, Incomplete rectal prolapse Admit to the [facility] ED Provider Note NAME: ISABELLE ARANGO AGE: 87 SEX: F ARRIVES VIA: Ambulance INFORMANT: Patient and her daughter ED PROVIDER(S): Susi Nielson DO CHIEF COMPLAINT: Abdominal pain PLAN: Disposition: Admit to the [facility] Condition: Fair MEDICAL DECISION MAKING: This is an 87-year-old female patient who presents to the emergency department with lower abdominal pain since 2:00 yesterday afternoon. Patient has been having diarrhea over the past 3 weeks and has become significantly weak as a result of this. EMS was called to the house because the patient was having abdominal pain and nausea. She was found to have low O2 sats and was placed on supplemental oxygen at that time. On physical exam, the patient has a rectal prolapse which is quite hard secondary to to a large amount of hard stool present within the prolapse. It seems as if the patient is having liquid stool come out around this hard stool. A CT scan of the abdomen/pelvis was performed as the patient had obvious reproducible lower abdominal pain with palpation. The CT scan showed evidence of significant colonic fecal retention. There were moderate air-fluid levels noted. Laboratory studies revealed elevated BUN/creatinine. There is no significant leukocytosis noted. The patient was tachycardic. Findings were consistent with dehydration. Patient was bolused with IV normal saline solution. I discussed the case with the [facility] and they will evaluate for further inpatient care. Triage Nursing notes reviewed and agree with them. Additional history obtained from the patient's daughter who is at the bedside External medical records were reviewed including primary care office notes Vital Signs: reviewed and remarkable for tachycardia Differential diagnosis: Ischemic bowel, STEMI, small bowel obstruction, colitis, cystitis, colonic fecal retention ER treatment provided: Cardiac monitoring Twelve-lead EKG IV fentanyl IV Zofran IV normal saline solution. Diagnostics interpreted by me: ECG: Sinus tachycardia at a rate of [address] segment elevation and T wave inversion in leads I and aVL although there was a poor baseline Repeat ECG: Sinus tachycardia at a rate of 109 with PVCs. There is very minimal ST segment elevation in V2 and V3. There is mild ST segment depression in lead I and aVL. Cardiac Monitoring: Sinus tachycardia at 111 Laboratory studies: See below Imaging studies: As per my independent interpretation Portable chest x-ray: Large hiatal hernia with no obvious pulmonary pathology. CT scan of the abdomen/pelvis: See stat rad report HPI: 87/F arrives for evaluation of lower abdominal pain. Patient describes having history of rectal prolapse which they attempted to repair approximately 1 year ago. They did a repeat procedure sometime earlier this year. Approximately 3 weeks ago, the patient developed increasing diarrhea and generalized weakness. Around 2:00 yesterday afternoon, the patient developed some lower abdominal pain that has continually worsened. She states the pain rates at a 8/10. She then developed worsening nausea and they called EMS. She describes a dry mouth. The daughter explains that she noted that the patient's urine was foul-smelling. The daughter explains that they took a stool specimen to her PCP at [facility] in [place] yesterday. PAST MEDICAL HISTORY:See Below PAST SURGICAL HISTORY:See Below FAMILY HISTORY:See Below SOCIAL HISTORY:See Below HOME MEDICATIONS:See list ALLERGIES:None VITALS:See Below PHYSICAL EXAMINATION: HEENT: Head - normocephalic and atraumatic. Pupils are equal, round, and reactive to light. Extraocular eye muscles are intact, and sclera are anicteric. Nose - moist nasal mucosa without discharge. Mouth - moist buccal mucosa. Oropharynx is nonerythematous and there is no tonsillar exudate or edema noted. Neck: Supple; no JVD or cervical lymphadenopathy Heart: Tachycardic rate and regular rhythm there is a normal S1 and S2 with no murmurs, clicks, or gallops appreciated. Lungs: Clear to auscultation bilaterally with no wheezes, rales, or rhonchi. Abdomen: Soft, exquisitely tender to palpation in the suprapubic region. There are no palpable pulsatile masses or hepatosplenomegaly. There is no guarding, rigidity, or rebound noted. Extremities: No evidence of cyanosis, clubbing, or edema. There are easily palpable peripheral pulses. Skin: warm and dry with good turgor and no rashes. ED COURSE: Times/Reassessments: 0005: Patient was evaluated in room A-12. A complete history and physical was performed. A twelve-lead EKG was obtained as described above. An order was placed for continuous cardiac monitoring. The patient was in a sinus tachycardia at a rate of 111. Patient was medicated with IV fentanyl and IV Zofran. She was bolused with 500 cc of saline. Portable chest x-ray was performed. The patient went for CT scan of the abdomen/pelvis. I reviewed the results with the patient and her daughter. I discussed the case with the [facility] Hospitalist and they will evaluate for further inpatient care. Susi Nielson DO Past Med/Surg History Medical History (Updated 01/17/23 @ 06:53 by Susi Nielson DO) Anemia Chronic kidney disease, stage 3 (moderate) Diarrhea GERD (gastroesophageal reflux disease) Hiatal hernia History of cervical cancer Hypertension Osteoarthritis Osteoporosis Peripheral neuropathy Pressure ulcer of left foot, stage 3 Traumatic open wound of left lower leg Traumatic open wound of right lower leg Surgical History H/O bladder repair surgery History of back surgery x [address] History of rectal surgery Dr[address] Flores Whitman - for rectal prolapse on 05/08/22. Hx of cholecystectomy S/P anterior colporrhaphy (2004) S/P bilateral cataract extraction S/P hemorrhoidectomy (05/2022) S/P RUBINA (total abdominal hysterectomy) Family History Father Mouth cancer Mother Myocardial infarction, Onset Age: 82 Aunt Breast cancer Denies family history of Ovarian cancer Prostate cancer Colorectal cancer Social History Smoking Status: Former smoker Tobacco Type: Cigarettes packs per day: 0.5; Second Hand Exposure: No; Hx Alcohol Use: No Hx Substance Use: No Preferred Language: Swedish Communication Ability: Effective Visual Impairment: No Limitations Hearing Ability: Hard of Hearing Regulatory Affairs Spec Required: No Beliefs That Will Affect Care: None marital status: Single Current Living Situation: Alone current occupational status: retired How many Children do You have: 1 Feels Safe at Home: Yes Childhood Exposure to Second-Hand Smoke: Yes caffeine: Yes during the past year weight has: remained stable Dental Care, Regularly: Yes Physical Activity Frequency: Daily Physical Activity Frequency Comment: housework Seatbelt Use: always Sunscreen Use: Yes Assistive Devices: Walker Allergies Allergies Allergy/AdvReac Type Severity Reaction Status Date / Time No Known Allergies Allergy Unknown ` Verified 01/17/23 00:07 Home Meds Home Medications Medication Instructions Recorded Confirmed aspirin 81 mg tablet,delayed 81 mg PO DAILY 10/01/21 01/17/23 release (Maggy Low Dose Aspirin) omeprazole 20 mg capsule,delayed 20 mg PO HS 12/25/21 01/17/23 release calcium carbonate 600 mg-vitamin 1 tab PO DAILY 01/17/23 01/17/23 D3 10 mcg (400 unit) tablet (Calcium 600 + D(3)) cyanocobalamin (vitamin B-12) 500 500 mcg PO DAILY 01/17/23 01/17/23 mcg tablet (Vitamin B-12) doxepin 10 mg capsule 10 mg PO HS 01/17/23 01/17/23 folic acid 400 mcg tablet 0.4 mg PO DAILY 01/17/23 01/17/23 tolterodine 4 mg capsule,extended 4 mg PO HS 01/17/23 01/17/23 release 24 hr Previous Rx's Medication Instructions Recorded levothyroxine 50 mcg tablet 50 mcg PO DAILYBB #90 tabs 10/22/22 allopurinol 100 mg tablet 100 mg PO DAILY #90 tabs 11/12/22 amlodipine 2.5 mg tablet 2.5 mg PO DAILY #90 tabs 11/29/22 imipramine HCl 10 mg tablet 20 mg PO BID #360 tabs 11/29/22 pregabalin 50 mg capsule (Lyrica) 50 mg PO DAILY #30 caps 11/29/22 Results & Data (ED) Vital Signs Vital Signs - 24 hr 01/16/23 23:56 01/17/23 00:00 01/17/23 01:14 Temperature 37.2 C Temperature Source Oral Pulse Rate 111 H 111 H 105 H Pulse Rhythm Regular Respiratory Rate 18 Respiratory Effort / Characteristics Non-Labored Spontaneous Respiratory Depth Normal Respiratory Pattern Regular Blood Pressure 111/72 Blood Pressure Mean 85 Blood Pressure Position Lying Pulse Oximetry 91 98 Oxygen Delivery Method Nasal Cannula Nasal Cannula Oxygen Flow Rate 2 2 Sepsis Recent Fever Within 48 Hours No Sepsis New/Unexplained Change in Mental Status N/A Sepsis Action Taken by Nursing No Action Required Laboratory Data 01/17/23 00:03 01/17/23 00:03 Lab Results 01/17/23 01/17/23 01/17/23 Range/Units 00:03 00:03 01:43 WBC 12.26 H (4.8-10.8) K/ul RBC 4.45 (4.20-5.40) M/uL Hgb 12.3 (12.0-16.0) g/dl Hct 37.4 (37.0-47.0) % MCV 84.0 (80.0-100.0) fL MCH 27.6 (25.0-34.0) pg MCHC 32.9 (32.0-36.0) g/dL RDW Std Deviation 44.8 (36.4-46.3) fL RDW Coeff of Lea 14.6 H (11.5-14.5) % Plt Count 395 (130-400) K/uL MPV 9.1 L (9.4-12.4) fL Immature Gran % (Auto) 0.3 % Neut % (Auto) 89.0 % Lymph % (Auto) 5.6 % [place] % (Auto) 4.8 % Eos % (Auto) 0.1 % Baso % (Auto) 0.2 % Neut # (Auto) 10.91 H (1.40-6.50) K/uL Lymph # (Auto) 0.69 L (1.2-3.4) K/uL [place] # (Auto) 0.59 (0.11-0.59) K/uL Eos # (Auto) 0.01 (0-0.50) K/uL Baso # (Auto) 0.02 (0-0.2) K/uL Immature Gran # (Auto) 0.04 (0.01-0.20) K/uL Sodium 137 (136-145) mmol/L Potassium 4.0 (3.5-5.1) mmol/L Chloride 105 (98-107) mmol/L Carbon Dioxide 23 (21-32) mmol/L Anion Gap 9 (3-11) BUN 31 H (6-23) mg/dl Creatinine 1.10 (0.6-1.2) mg/dl Est Cr Clr Drug Dosing 27.0 ml/min Est GFR ( Amer) 51.9 ml/min Est GFR (Non-Af Amer) 44.8 ml/min BUN/Creatinine Ratio 28.2 H (10-20) Glucose 114 H (70-99(Fasting)) mg/dl Calcium 9.4 (8.6-10.3) mg/dl Total Bilirubin 0.4 (0.2-1.0) mg/dl AST 15 (13-39) U/L ALT 10 (7-52) U/L Alkaline Phosphatase 88 (34-104) U/L Troponin I High Sens 10.7 (0-14) pg/ml Total Protein 6.7 (6.0-8.3) gm/dl Albumin 3.8 (3.4-5.0) gm/dl Globulin 2.9 (2.5-4.0) gm/dl Albumin/Globulin Ratio 1.3 (0.9-2) Lipase 69 (11-82) U/L Urine Color Yellow Urine Appearance Cloudy A (Clear) Urine pH 5.0 (4.5-7.5) Ur Specific [place] 1.020 (1.000-1.030) Urine Protein Negative (Negative) Urine Glucose (UA) Negative (Negative) Urine Ketones Trace H (Negative) Urine Blood Negative (Negative) Urine Nitrite Negative (Negative) Urine Bilirubin Negative (Negative) Urine Urobilinogen Negative (Negative) Ur Leukocyte Esterase 1+ H (Negative) Urine WBC (Auto) 5-10 H (0-5) /hpf Urine RBC (Auto) 0-4 (0-4) /hpf U Hyaline Cast (Auto) 1-5 (0-5) /lpf U Epithel Cells (Auto) 10-20 H (0-5) /lpf Urine Bacteria (Auto) 4+ H (Negative) Urine Yeast Not Reportable SARS-CoV-2, RNA, NAAT (NEGATIVE) 01/17/23 Range/Units 01:47 WBC (4.8-10.8) K/ul RBC (4.20-5.40) M/uL Hgb (12.0-16.0) g/dl Hct (37.0-47.0) % MCV (80.0-100.0) fL MCH (25.0-34.0) pg MCHC (32.0-36.0) g/dL RDW Std Deviation (36.4-46.3) fL RDW Coeff of Lea (11.5-14.5) % Plt Count (130-400) K/uL MPV (9.4-12.4) fL Immature Gran % (Auto) % Neut % (Auto) % Lymph % (Auto) % [place] % (Auto) % Eos % (Auto) % Baso % (Auto) % Neut # (Auto) (1.40-6.50) K/uL Lymph # (Auto) (1.2-3.4) K/uL [place] # (Auto) (0.11-0.59) K/uL Eos # (Auto) (0-0.50) K/uL Baso # (Auto) (0-0.2) K/uL Immature Gran # (Auto) (0.01-0.20) K/uL Sodium (136-145) mmol/L Potassium (3.5-5.1) mmol/L Chloride (98-107) mmol/L Carbon Dioxide (21-32) mmol/L Anion Gap (3-11) BUN (6-23) mg/dl Creatinine (0.6-1.2) mg/dl Est Cr Clr Drug Dosing ml/min Est GFR ( Amer) ml/min Est GFR (Non-Af Amer) ml/min BUN/Creatinine Ratio (10-20) Glucose (70-99(Fasting)) mg/dl Calcium (8.6-10.3) mg/dl Total Bilirubin (0.2-1.0) mg/dl AST (13-39) U/L ALT (7-52) U/L Alkaline Phosphatase (34-104) U/L Troponin I High Sens (0-14) pg/ml Total Protein (6.0-8.3) gm/dl Albumin (3.4-5.0) gm/dl Globulin (2.5-4.0) gm/dl Albumin/Globulin Ratio (0.9-2) Lipase (11-82) U/L Urine Color Urine Appearance (Clear) Urine pH (4.5-7.5) Ur Specific [place] (1.000-1.030) Urine Protein (Negative) Urine Glucose (UA) (Negative) Urine Ketones (Negative) Urine Blood (Negative) Urine Nitrite (Negative) Urine Bilirubin (Negative) Urine Urobilinogen (Negative) Ur Leukocyte Esterase (Negative) Urine WBC (Auto) (0-5) /hpf Urine RBC (Auto) (0-4) /hpf U Hyaline Cast (Auto) (0-5) /lpf U Epithel Cells (Auto) (0-5) /lpf Urine Bacteria (Auto) (Negative) Urine Yeast SARS-CoV-2, RNA, NAAT NEGATIVE (NEGATIVE) Administered Medications Lactated Ringer's (Lr) 1,000 mls @ 125 mls/hr IV .Q8H DARIEL Stop: 02/16/23 05:34 Last Admin: 01/17/23 06:34 Dose: 125 mls/hr Documented By: UNRULY Magnesium Sulfate/Dextrose (Magnesium Sulfate / D5w) 1 gm in 100 mls @ 50 mls/hr IV Q2H DARIEL Stop: 01/17/23 09:59 Last Admin: 01/17/23 06:34 Dose: 50 mls/hr Documented By: UNRULY Discontinued Medications Fentanyl Citrate (Fentanyl Citrate Pf 100 Mcg/2 Ml Vial) 50 mcg IV NOW STA Stop: 01/17/23 00:26 Last Admin: 01/17/23 00:38 Dose: 50 mcg Documented By: Fentanyl Citrate (Fentanyl Citrate Pf 100 Mcg/2 Ml Vial) 50 mcg IV NOW STA Stop: 01/17/23 01:41 Last Admin: 01/17/23 02:06 Dose: 50 mcg Documented By: Sodium Chloride (Nss) 500 mls @ 999 mls/hr IV .Q31M STA Stop: 01/17/23 00:55 Last Infusion: 01/17/23 01:13 Dose: 0 mls/hr Documented By: Admin: 01/17/23 00:38 Dose: 999 mls/hr Documented By: Sodium Chloride (Nss) 500 mls @ 125 mls/hr IV .Q4H DARIEL Stop: 02/16/23 01:44 Last Infusion: 01/17/23 06:19 Dose: 0 mls/hr Documented By: Admin: 01/17/23 02:05 Dose: 125 mls/hr Documented By: Ioversol (Optiray 350 100ml) 100 ml IV ONCE ONE Stop: 01/17/23 01:06 Last Admin: 01/17/23 01:05 Dose: 83 ml Documented By: SHABANA Ondansetron HCl (Ondansetron Inj 2 Mg/Ml 2 Ml Vial) 4 mg IV NOW STA Stop: 01/17/23 00:26 Last Admin: 01/17/23 00:38 Dose: 4 mg Documented By: Imaging Data Radiologist's Impression: Abdomen/Pelvis CT 01/17/23 00:25 Exam(s): CT ABDOMEN + PELVIS With Contrast IV Amt: 83 ml optiray 350 EXAM: CT Abdomen and Pelvis With Intravenous Contrast CLINICAL HISTORY: Reason for exam: eval for sbo vs. colitis. TECHNIQUE: Axial computed tomography images of the abdomen and pelvis with intravenous contrast. CTDI is 6.04 mGy and DLP is 269.33 mGy-cm. Automated exposure control was utilized for the study. A dose lowering technique was utilized adhering to the principles of ALARA. CONTRAST: Patient received 83 ml optiray 350 of IV contrast COMPARISON: No relevant prior studies available. FINDINGS: Lung bases: Unremarkable. No mass. No consolidation. Mediastinum: There is a large hiatal hernia. ABDOMEN: Liver: Unremarkable. No mass. Gallbladder and bile ducts: The patient is status post cholecystectomy. Intrahepatic biliary ductal dilatation is stable and most likely related to postcholecystectomy change. Pancreas: Unremarkable. No mass. No ductal dilation. Spleen: Unremarkable. No splenomegaly. Adrenals: Unremarkable. No mass. Kidneys and ureters: Unremarkable. No solid mass. No hydronephrosis. Stomach and bowel: There is a very large amount of stool throughout the colon with associated dilatation of upstream small bowel loops. No mucosal thickening. PELVIS: Appendix: No findings to suggest acute appendicitis. Bladder: Unremarkable. No mass. Reproductive: Unremarkable as visualized. ABDOMEN and PELVIS: Intraperitoneal space: Unremarkable. No free air. No significant fluid collection. Bones/joints: There are degenerative changes of the thoracolumbar spine with lower lumbar spine surgical hardware. No acute fracture. No dislocation. Soft tissues: Unremarkable. Vasculature: Unremarkable. No abdominal aortic aneurysm. Lymph nodes: Unremarkable. No enlarged lymph nodes. IMPRESSION: Very large volume of stool throughout the large bowel with associated upstream distention of small bowel loops. Electronically signed by: Elias Lloyd MD 01/17/23 01:24 AM Discharge Plan Visit Data Chief Complaint: Abdominal Pain Stated Complaint: Diarrhea ED Provider: Susi Nielson Discharge Problem: Abdominal pain, lower, Fecal retention, Incomplete rectal prolapse Patient Disposition: Admitted As Inpatient Discharge Instructions Interventions: ED Discharge Assessment Last Done: 01/17/23 05:36 Fecal retention Qualifiers: Constipation type: unspecified constipation type Qualified Code(s): K59.00 - Constipation, unspecified
[2023-01-17 00:45] LABS: Basophils # (auto) 0.02 K/uL (0-0.2); Basophils % (auto) 0.2 %; Eosinophils # (auto) 0.01 K/uL (0-0.50); Eosinophils % (auto) 0.1 %; Hematocrit (blood only) 37.4 % (37.0-47.0); Hemoglobin 12.3 g/dl (12.0-16.0); Immature Granulocytes # (auto) 0.04 K/uL (0.01-0.20); Immature Granulocytes % (auto) 0.3 %; Lymphocytes # (auto) 0.69 K/uL (1.2-3.4); Lymphocytes % (auto) 5.6 %; Mean Corpuscular Hemoglobin 27.6 pg (25.0-34.0); Mean Corpuscular Hgb Conc 32.9 g/dL (32.0-36.0); Mean Platelet Volume 9.1 fL (9.4-12.4); Monocytes # (auto) 0.59 K/uL (0.11-0.59); Monocytes % (auto) 4.8 %; Neutrophils # (auto) 10.91 K/uL (1.40-6.50); Platelet Count 395 K/uL (130-400); RDW Coefficient of Variation 14.6 % (11.5-14.5); RDW Standard Deviation 44.8 fL (36.4-46.3); Red Blood Count 4.45 M/uL (4.20-5.40); White Blood Count 12.26 K/ul (4.8-10.8)
[2023-01-17 00:50] LABS: Albumin Globulin Ratio 1.3 (0.9-2); Albumin Level 3.8 gm/dl (3.4-5.0); BUN Creatinine Ratio 28.2 (10-20); Bilirubin,Total 0.4 mg/dl (0.2-1.0); Calcium 9.4 mg/dl (8.6-10.3); Est GFR (African American) 51.9 ml/min; Est GFR (Non-African American) 44.8 ml/min; Globulin 2.9 gm/dl (2.5-4.0); Total Protein 6.7 gm/dl (6.0-8.3)
[2023-01-17 00:57] LABS: Troponin I High Sensitivity 10.7 pg/ml (0-14)
[2023-01-17] MEDS ORDERED: OPTIRAY 350 100ml IV ONE (01:05)
--- NOTE | 2023-01-17 01:25 | CT Scan Report ---
Exam(s): CT ABDOMEN + PELVIS With Contrast IV Amt: 83 ml optiray 350 EXAM: CT Abdomen and Pelvis With Intravenous Contrast CLINICAL HISTORY: Reason for exam: eval for sbo vs. colitis. TECHNIQUE: Axial computed tomography images of the abdomen and pelvis with intravenous contrast. CTDI is 6.04 mGy and DLP is 269.33 mGy-cm. Automated exposure control was utilized for the study. A dose lowering technique was utilized adhering to the principles of ALARA. CONTRAST: Patient received 83 ml optiray 350 of IV contrast COMPARISON: No relevant prior studies available. FINDINGS: Lung bases: Unremarkable. No mass. No consolidation. Mediastinum: There is a large hiatal hernia. ABDOMEN: Liver: Unremarkable. No mass. Gallbladder and bile ducts: The patient is status post cholecystectomy. Intrahepatic biliary ductal dilatation is stable and most likely related to postcholecystectomy change. Pancreas: Unremarkable. No mass. No ductal dilation. Spleen: Unremarkable. No splenomegaly. Adrenals: Unremarkable. No mass. Kidneys and ureters: Unremarkable. No solid mass. No hydronephrosis. Stomach and bowel: There is a very large amount of stool throughout the colon with associated dilatation of upstream small bowel loops. No mucosal thickening. PELVIS: Appendix: No findings to suggest acute appendicitis. Bladder: Unremarkable. No mass. Reproductive: Unremarkable as visualized. ABDOMEN and PELVIS: Intraperitoneal space: Unremarkable. No free air. No significant fluid collection. Bones/joints: There are degenerative changes of the thoracolumbar spine with lower lumbar spine surgical hardware. No acute fracture. No dislocation. Soft tissues: Unremarkable. Vasculature: Unremarkable. No abdominal aortic aneurysm. Lymph nodes: Unremarkable. No enlarged lymph nodes. IMPRESSION: Very large volume of stool throughout the large bowel with associated upstream distention of small bowel loops. Electronically signed by: Elias Lloyd MD 01/17/23 01:24 AM
[2023-01-17] MEDS ORDERED: SODIUM CHLORIDE 0.9% 500 ML IV SCH (01:45)
[2023-01-17 02:08] LABS: Appearance Urine Cloudy (Clear); Bacteria Urine Automated 4+ (Negative); Bilirubin Urine Negative (Negative); Blood Urine Negative (Negative); Color Urine Yellow; Glucose Urine UA Negative (Negative); Ketones Urine Trace (Negative); Leukocyte Esterase Urine 1+ (Negative); Nitrite Urine Negative (Negative); Protein Urine Negative (Negative); RBC Urine Automated 0-4 /hpf (0-4); Urobilinogen Urine Negative (Negative)
[2023-01-17 02:52] LABS: Troponin I High Sensitivity 9.3 pg/ml (0-14)
--- NOTE | 2023-01-17 03:06 | History & Physical Report ---
Date of Service January 17, 2023 Assessment & Plan (1) Large bowel obstruction: Plan: 87-year-old woman who presented with lower abdominal pain and diarrhea x3 weeks. Now admitted for further management of large bowel obstruction secondary to rectal prolapse. Large bowel obstruction -Discovered on CT A/P. No evidence of pneumoperitoneum or inflammation. -Patient has had overflow diarrhea and fecal incontinence. -Patient is afebrile. UA + leuk esterase. * Admit to MedSurg telemetry * Made n.p.o. including all home meds. * Maintenance IV LR@125 mL/h. * GI consult placed. Appreciate recommendations. * Deferring initiation of bowel regimen until evaluation by GI, general surgery. * As needed IV Dilaudid for pain (hx of CKD 3). * Trend labs. Replete electrolytes as needed. Rectal prolapse -Patient is s/p 2 failed surgical revision attempts. -Discussed with general surgery. Patient may need colostomy placed. * General surgery consult placed * Management otherwise as above Chronic conditions (gout, hypertension, GERD, neuropathic pain, bladder incontinence): Hold all p.o. home meds Code: Conditional code Dispo: Med-Surg telemetry FEN/GI: NPO. Maintenance LR DVT Prophylaxis: SQ heparin 5000 units every 12 hours PT/OT: Yes Consults: None (2) Rectal prolapse: (3) Hypothyroidism: (4) Gout: (5) Neuropathic pain: (6) Hypertension: (7) GERD (gastroesophageal reflux disease): History of Present Illness Primary Care Provider: Briseyda Lackey DO Destini is an 87-year-old woman with a history of rectal prolapse (s/p 2 failed revisions) who presented to the emergency room today with diarrhea and progressive weakness x3 weeks. Yesterday, she provided a stool sample for culture outpatient. Upon returning home, she began to experience severe lower abdominal pain 8/10. Although she initially attempted to manage her pain until her follow-up appointment today, her pain continued to worsen and, when she started feeling nauseous and began dry heaving, family called ambulance which brought her to the hospital. In the ED, O2 saturation was noted to be in the high 80s, so she received O2 supplementation via NC. Labs revealed WBC of 12.26, and a BUN of 31. Creatinine-1.10. Total bilirubin 0.4. Lipase was not elevated (69). UA showed 1+ leukocyte esterase without nitrites (4+ bacteria). CT of the abdomen/pelvis r evealed "very large volume of stool throughout the large bowel with associated upstream distention of small bowel loops." She received a 500 cc bolus of NS, IV fentanyl for pain, and Zofran for nausea. She was then started on maintenance NS, at which point hospitalist service was contacted for admission. On admission, patient is resting comfortably in bed. She reports lower abdominal pain though she just received some pain medicine. She denies headache, fever, shortness of breath, chest pain, or epigastric pain. When asked about CODE STATUS, she notes that she would like to be full code only because she is an organ donor. Otherwise, she does not want to be resuscitated or placed on assisted ventilation. Allergies Allergy/AdvReac Type Severity Reaction Status Date / Time No Known Allergies Allergy Unknown ` Verified 01/17/23 00:07 Home Medications Medication Instructions Recorded Confirmed Type aspirin 81 mg tablet,delayed 81 mg PO DAILY 10/01/21 01/17/23 History release (Maggy Low Dose Aspirin) omeprazole 20 mg capsule,delayed 20 mg PO HS 12/25/21 01/17/23 History release levothyroxine 50 mcg tablet 50 mcg PO DAILYBB #90 tabs 10/22/22 01/17/23 Rx allopurinol 100 mg tablet 100 mg PO DAILY #90 tabs 11/12/22 01/17/23 Rx amlodipine 2.5 mg tablet 2.5 mg PO DAILY #90 tabs 11/29/22 01/17/23 Rx imipramine HCl 10 mg tablet 20 mg PO BID #360 tabs 11/29/22 01/17/23 Rx pregabalin 50 mg capsule (Lyrica) 50 mg PO DAILY #30 caps 11/29/22 01/17/23 Rx calcium carbonate 600 mg-vitamin 1 tab PO DAILY 01/17/23 01/17/23 History D3 10 mcg (400 unit) tablet (Calcium 600 + D(3)) cyanocobalamin (vitamin B-12) 500 500 mcg PO DAILY 01/17/23 01/17/23 History mcg tablet (Vitamin B-12) doxepin 10 mg capsule 10 mg PO HS 01/17/23 01/17/23 History folic acid 400 mcg tablet 0.4 mg PO DAILY 01/17/23 01/17/23 History tolterodine 4 mg capsule,extended 4 mg PO HS 01/17/23 01/17/23 History release 24 hr Past Med/Surg History Medical History (Updated 01/17/23 @ 06:53 by Susi Nielson DO) Anemia Chronic kidney disease, stage 3 (moderate) Diarrhea GERD (gastroesophageal reflux disease) Hiatal hernia History of cervical cancer Hypertension Osteoarthritis Osteoporosis Peripheral neuropathy Pressure ulcer of left foot, stage 3 Traumatic open wound of left lower leg Traumatic open wound of right lower leg Surgical History H/O bladder repair surgery History of back surgery x [address] of rectal surgery [address] Flores Whitman - for rectal prolapse on 05/08/22. Hx of cholecystectomy S/P anterior colporrhaphy (2004) S/P bilateral cataract extraction S/P hemorrhoidectomy (05/2022) S/P RUBINA (total abdominal hysterectomy) Family History Father Mouth cancer Mother Myocardial infarction, Onset Age: 82 Aunt Breast cancer Denies family history of Ovarian cancer Prostate cancer Colorectal cancer Social History Smoking Status: Former smoker Tobacco Type: Cigarettes packs per day: 0.5; Second Hand Exposure: No; Do You Dip or Chew Tobacco: No; Hx Alcohol Use: No Hx Substance Use: No Preferred Language: Rwandan Communication Ability: Effective Visual Impairment: No Limitations Hearing Ability: Hard of Hearing Tow Operator Required: No Beliefs That Will Affect Care: None marital status: Single Current Living Situation: Alone current occupational status: retired How many Children do You have: 1 Feels Safe at Home: Yes Safety Concerns: Feels Safe At This Time Childhood Exposure to Second-Hand Smoke: Yes caffeine: Yes during the past year weight has: remained stable Dental Care, Regularly: Yes Physical Activity Frequency: Daily Physical Activity Frequency Comment: housework Seatbelt Use: always Sunscreen Use: Yes Assistive Devices: Cane, Glasses and Walker Review of Systems Review of Systems: All systems reviewed & are unremarkable except as noted in HPI & below Physical Exam Physical Exam: General: No acute distress HEENT: PERRLA. Normal conjunctiva, anicteric sclera. Oropharynx normal. Respiratory: Normal respiratory effort, CTABL. Cardiovascular: Tachycardic. Regular rhythm. Systolic murmur heard on auscultation. No gallops, or rubs. No pedal edema. GI: Soft abdomen with normal bowel sounds heard on auscultation. Nontender x4 quadrants Neuro: Alert and oriented x3. Results & Data Results & Data Vital Signs (Past 12 Hours) Vital Signs Temp Pulse Resp BP Pulse Ox O2 Del Method O2 Flow Rate 01/17/23 01:14 105 H 98 Nasal Cannula 2 01/17/23 00:00 37.2 C 111 H 18 111/72 91 Nasal Cannula 2 01/16/23 23:56 111 H Supervising Physician Co-Signing Physician Notes Attending addendum: I have physically seen this patient, have supervised the medical residents activities, and agree with the H&P unless as otherwise noted. Assessment and Plan: Large bowel obstruction/rectal prolapse- Overflow diarrhea and fecal incontinence Admit to [facility] with telemetry N.p.o. LR 125 mils per hour Consult gastroenterology for decompression Patient has had 2 previous surgeries for correction of rectal prolapse without success Case was discussed with general surgery will follow patient while in hospital Remaining orders and notations as noted Resident Activity Tracking Resident Involvement: Resident Care Provided Care Provided: Adult Hospital Medicine
[2023-01-17 03:26] LABS: Magnesium 1.4 mg/dl (1.7-2.4)
[2023-01-17] MEDS ORDERED: HYDROmorphone INJ 0.5 MG/0.5 ML SYR IV PRN ×2 (05:35)
[2023-01-17] MEDS: LACTATED RINGER'S 1,000 ML IV SCH ×2 (06:34→14:53)
[2023-01-17] MEDS: MAGNESIUM SULFATE / D5W 1 GM/100 ML BAG IV SCH ×2 (06:34→07:52)
--- NOTE | 2023-01-17 07:40 | XRay Report ---
XR chest 1V portable HISTORY: hypoxia COMPARISON: Chest CT 02/28/2022. FINDINGS: No pneumothorax. No pleural effusions. There is S-shaped scoliosis of the thoracolumbar spi ne. The heart remains mildly enlarged. No new focal lung consolidations to suggest a pneumonia. No ev idence for pulmonary edema. Residual contrast within the renal collecting systems from the prior CT e xamination. Prior cholecystectomy. Large hiatus hernia with dilated esophagus again noted. IMPRESSION: No significant change compared to the prior study. No acute process. Large hiatus hernia and dilated esophagus again noted. ACT 112: Negative or not required by law. Electronically signed by: Florentin Santos M.D. 01/17/2023 7:38 AM
[2023-01-17] MEDS: HEPARIN SOD 5,000 UNIT/0.5 ML VIAL SQ SCH ×2 (07:51→20:04)
--- NOTE | 2023-01-17 08:37 | Surgery Consultation ---
Date of Consultation January 17, 2023 Assessment & Plan (1) Fecal retention: pt is a 87 year-old female who was admitted to hospital for abdominal pain, diarrhea, IMP: fecal retention, caused large bowel obstruction, plan, base on H/P, labs and CT scan finding, recommend fleet enema, try to pass BM first, release bowel obstruction, miralax, po, no rectal prolapse now, consult out-patient colorectal surgeon for further diagnosis and treatment, pt agreed with the plan, I answered all questions, will F/U, History of Present Illness Reason for Consultation: large bowel obstruction, rectal prolapse Requesting Physician: Jimmy Oh DO Attending Physician: Jimmy Oh DO History of Present Illness CC: abdominal pain HPI: Destini is an 87-year-old woman with a history of rectal prolapse (s/p 2 failed revisions) who presented to the emergency room today with diarrhea and p rogressive weakness x3 weeks. Yesterday, she provided a stool sample for culture outpatient. Upon returning home, she began to experience severe lower abdominal pain 810. Although she initially attempted to manage her pain until her follow-up appointment today, her pain continued to worsen and, when she started feeling nauseous and began dry heaving, family called ambulance which brought her to the hospital. In the ED, O2 saturation was noted to be in the high 80s, so she received O2 supplementation via NC. Labs revealed WBC of 12.26, and a BUN of 31. Creatinine-1.10. Total bilirubin 0.4. Lipase was not elevated (69). UA showed 1+ leukocyte esterase without nitrites (4+ bacteria). CT of the abdomen/pelvis revealed "very large volume of stool throughout the large bowel with associated upstream distention of small bowel loops." She received a 500 cc bolus of NS, IV fentanyl for pain, and Zofran for nausea. She was then started on maintenance NS, at which point hospitalist service was contacted for admission. On admission, patient is resting comfortably in bed. She reports lower abdominal pain though she just received some pain medicine. She denies headache, fever, shortness of breath, chest pain, or epigastric pain. When asked about CODE STATUS, she notes that she would like to be full code only because she is an organ donor. Otherwise, she does not want to be resuscitated or placed on assisted ventilation. I ( Irma Israel MD ) got a call for consult large bowel obstruction and rectal prolapse(s/p 2 failed revisions), I reviewed pt's H/P, labs and CT scan with pt. passed some stool this morning, pt is still have mild abdominal pain, no fever, no nausea and vomiting today. Allergies Allergy/AdvReac Type Severity Reaction Status Date / Time No Known Allergies Allergy Unknown ` Verified 01/17/23 00:07 Home Medications Medication Instructions Recorded Confirmed Type aspirin 81 mg tablet,delayed 81 mg PO DAILY 10/01/21 01/17/23 History release (Maggy Low Dose Aspirin) omeprazole 20 mg capsule,delayed 20 mg PO HS 12/25/21 01/17/23 History release levothyroxine 50 mcg tablet 50 mcg PO DAILYBB #90 tabs 10/22/22 01/17/23 Rx allopurinol 100 mg tablet 100 mg PO DAILY #90 tabs 11/12/22 01/17/23 Rx amlodipine 2.5 mg tablet 2.5 mg PO DAILY #90 tabs 11/29/22 01/17/23 Rx imipramine HCl 10 mg tablet 20 mg PO BID #360 tabs 11/29/22 01/17/23 Rx pregabalin 50 mg capsule (Lyrica) 50 mg PO DAILY #30 caps 11/29/22 01/17/23 Rx calcium carbonate 600 mg-vitamin 1 tab PO DAILY 01/17/23 01/17/23 History D3 10 mcg (400 unit) tablet (Calcium 600 + D(3)) cyanocobalamin (vitamin B-12) 500 500 mcg PO DAILY 01/17/23 01/17/23 History mcg tablet (Vitamin B-12) doxepin 10 mg capsule 10 mg PO HS 01/17/23 01/17/23 History folic acid 400 mcg tablet 0.4 mg PO DAILY 01/17/23 01/17/23 History tolterodine 4 mg capsule,extended 4 mg PO HS 01/17/23 01/17/23 History release 24 hr Past Med/Surg History Medical History(Updated 01/17/23 @ 03:22 by Agustín Isaac MD) Anemia Chronic kidney disease, stage 3 (moderate) Diarrhea GERD (gastroesophageal reflux disease) Hiatal hernia History of cervical cancer Hypertension Osteoarthritis Osteoporosis Peripheral neuropathy Pressure ulcer of left foot, stage 3 Traumatic open wound of left lower leg Traumatic open wound of right lower leg Surgical History H/O bladder repair surgery History of back surgery x 2History of rectal surgery Dr. Flores Whitman - for rectal prolapse on 05/08/22.Hx of cholecystectomy S/P anterior colporrhaphy (2004) S/P bilateral cataract extraction S/P hemorrhoidectomy (05/2022) S/P RUBINA (total abdominal hysterectomy) Family History Father Mouth cancerMother Myocardial infarction, Onset Age: 82Aunt Breast cancerDenies family history of Ovarian cancer Prostate cancer Colorectal cancer Social History Smoking Status: Former smoker Tobacco Type: Cigarettes packs per day: 0.5; Second Hand Exposure: No; Hx Alcohol Use: No Hx Substance Use: No Preferred Language: Slovenian Communication Ability: Effective Visual Impairment: No Limitations Hearing Ability: Hard of Hearing Install And Repair Technician Required: No Beliefs That Will Affect Care: None marital status: Single Current Living Situation: Alone current occupational status: retired How many Children do You have: 1 Feels Safe at Home: Yes Childhood Exposure to Second-Hand Smoke: Yes caffeine: Yes during the past year weight has: remained stable Dental Care, Regularly: Yes Physical Activity Frequency: Daily Physical Activity Frequency Comment: housework Seatbelt Use: always Sunscreen Use: Yes Assistive Devices: Walker Review of Systems Review of Systems: All systems reviewed & are unremarkable except as noted in HPI & below Allergies Allergy/AdvReac Type Severity Reaction Status Date / Time No Known Allergies Allergy Unknown ` Verified 01/17/23 00:07 Home Medications Medication Instructions Recorded Confirmed Type aspirin 81 mg tablet,delayed 81 mg PO DAILY 10/01/21 01/17/23 History release (Maggy Low Dose Aspirin) omeprazole 20 mg capsule,delayed 20 mg PO HS 12/25/21 01/17/23 History release levothyroxine 50 mcg tablet 50 mcg PO DAILYBB #90 tabs 10/22/22 01/17/23 Rx allopurinol 100 mg tablet 100 mg PO DAILY #90 tabs 11/12/22 01/17/23 Rx amlodipine 2.5 mg tablet 2.5 mg PO DAILY #90 tabs 11/29/22 01/17/23 Rx imipramine HCl 10 mg tablet 20 mg PO BID #360 tabs 11/29/22 01/17/23 Rx pregabalin 50 mg capsule (Lyrica) 50 mg PO DAILY #30 caps 11/29/22 01/17/23 Rx calcium carbonate 600 mg-vitamin 1 tab PO DAILY 01/17/23 01/17/23 History D3 10 mcg (400 unit) tablet (Calcium 600 + D(3)) cyanocobalamin (vitamin B-12) 500 500 mcg PO DAILY 01/17/23 01/17/23 History mcg tablet (Vitamin B-12) doxepin 10 mg capsule 10 mg PO HS 01/17/23 01/17/23 History folic acid 400 mcg tablet 0.4 mg PO DAILY 01/17/23 01/17/23 History tolterodine 4 mg capsule,extended 4 mg PO HS 01/17/23 01/17/23 History release 24 hr Patient History Medical History (Updated 01/17/23 @ 06:53 by Susi Nileson DO) Anemia Chronic kidney disease, stage 3 (moderate) Diarrhea GERD (gastroesophageal reflux disease) Hiatal hernia History of cervical cancer Hypertension Osteoarthritis Osteoporosis Peripheral neuropathy Pressure ulcer of left foot, stage 3 Traumatic open wound of left lower leg Traumatic open wound of right lower leg Surgical History H/O bladder repair surgery History of back surgery x [address] surgery [address] Flores Whitman - for rectal prolapse on 05/08/22. Hx of cholecystectomy S/P anterior colporrhaphy (2004) S/P bilateral cataract extraction S/P hemorrhoidectomy (05/2022) S/P RUBINA (total abdominal hysterectomy) Family History Father Mouth cancer Mother Myocardial infarction, Onset Age: 82 Aunt Breast cancer Denies family history of Ovarian cancer Prostate cancer Colorectal cancer Social History Smoking Status: Former smoker Tobacco Type: Cigarettes packs per day: 0.5; Second Hand Exposure: No; Do You Dip or Chew Tobacco: No; Hx Alcohol Use: No Hx Substance Use: No Preferred Language: Slovenian Communication Ability: Effective Visual Impairment: No Limitations Hearing Ability: Hard of Hearing Install And Repair Technician Required: No Beliefs That Will Affect Care: None marital status: Single Current Living Situation: Alone current occupational status: retired How many Children do You have: 1 Feels Safe at Home: Yes Safety Concerns: Feels Safe At This Time Childhood Exposure to Second-Hand Smoke: Yes caffeine: Yes during the past year weight has: remained stable Dental Care, Regularly: Yes Physical Activity Frequency: Daily Physical Activity Frequency Comment: housework Seatbelt Use: always Sunscreen Use: Yes Assistive Devices: Denture - Upper and Glasses Review of Systems Constitutional: as per Subjective / HPI Eyes: as per Subjective / HPI Respiratory: as per Subjective / HPI Cardiovascular: Additional Comments: mitral regurgitation, CHF, HTN Gastrointestinal: rectal prolapse, failed 2 time surgery, GERD Genitourinary: as per Subjective / HPI Neurologic: as per Subjective / HPI Psychiatric: as per Subjective / HPI Endocrine: hypothyroidism Hematologic / Lymphatic: as per Subjective / HPI gout Physical Exam Constitutional: WD/WN, vitals as above no distress Eyes: PERRL, conjunctivae normal, anicteric sclerae Neck: trachea midline, no thyromegaly Respiratory: normal respiratory effort, lungs clear to auscultation Cardiovascular: RRR, no murmur, no edema Gastrointestinal (Abdomen): sofe, mild tenderness at periumbilical area, no rebound pain, no distend, BS +, lower middle scar. rectal exam, nurse with me, no rectal prolapse now, large hard stool at rectum. no rectal bleeding, one small chronic ulcer wound at right buttock area, size about 2x2cm, II degree. no redness, no drainage. Neurologic: patellar DTR's 2+ bilat, sensation intact Psychiatric: A+Ox3, euthymic affect Results & Data Vital Signs (Past 12 Hours) Vital Signs Temp Pulse Pulse Resp BP BP Pulse Ox 01/17/23 06:30 36.6 C 99 H 19 149/76 H 95 01/17/23 05:30 101 H 21 96 01/17/23 05:30 116/63 01/17/23 05:00 103 H 22 96 01/17/23 05:00 113/63 01/17/23 04:30 105 H 21 95 01/17/23 04:30 124/71 01/17/23 05:29 01/17/23 04:00 106 H 01/17/23 03:30 105 H 19 95 01/17/23 03:30 112/69 01/17/23 03:24 121/75 01/17/23 03:24 107 H 19 95 01/17/23 03:00 109 H 19 94 01/17/23 01:14 105 H 98 01/17/23 00:00 37.2 C 111 H 18 111/72 91 01/16/23 23:56 111 H O2 Del Method O2 Flow Rate 01/17/23 06:30 Nasal Cannula 2 01/17/23 05:30 Nasal Cannula 2 01/17/23 05:30 01/17/23 05:00 Nasal Cannula 2 01/17/23 05:00 01/17/23 04:30 Nasal Cannula 2 01/17/23 04:30 01/17/23 05:29 Nasal Cannula 2 01/17/23 04:00 01/17/23 03:30 Nasal Cannula 2 01/17/23 03:30 01/17/23 03:24 01/17/23 03:24 Nasal Cannula 2 01/17/23 03:00 Nasal Cannula 2 01/17/23 01:14 Nasal Cannula 2 01/17/23 00:00 Nasal Cannula 2 01/16/23 23:56 Laboratory Results Abnormal lab results 01/17/23 01/17/23 01/17/23 Range/Units 00:03 00:03 01:43 WBC 12.26 H (4.8-10.8) K/ul RDW Coeff of Lea 14.6 H (11.5-14.5) % MPV 9.1 L (9.4-12.4) fL Neut # (Auto) 10.91 H (1.40-6.50) K/uL Lymph # (Auto) 0.69 L (1.2-3.4) K/uL BUN 31 H (6-23) mg/dl BUN/Creatinine Ratio 28.2 H (10-20) Glucose 114 H (70-99(Fasting)) mg/dl POC Glucose (70-99) mg/dl Magnesium (1.7-2.4) mg/dl Urine Appearance Cloudy A (Clear) Urine Ketones Trace H (Negative) Ur Leukocyte Esterase 1+ H (Negative) Urine WBC (Auto) 5-10 H (0-5) /hpf U Epithel Cells (Auto) 10-20 H (0-5) /lpf Urine Bacteria (Auto) 4+ H (Negative) 01/17/23 01/17/23 Range/Units 02:13 08:00 WBC (4.8-10.8) K/ul RDW Coeff of Lea (11.5-14.5) % MPV (9.4-12.4) fL Neut # (Auto) (1.40-6.50) K/uL Lymph # (Auto) (1.2-3.4) K/uL BUN (6-23) mg/dl BUN/Creatinine Ratio (10-20) Glucose (70-99(Fasting)) mg/dl POC Glucose 108 H (70-99) mg/dl Magnesium 1.4 L (1.7-2.4) mg/dl Urine Appearance (Clear) Urine Ketones (Negative) Ur Leukocyte Esterase (Negative) Urine WBC (Auto) (0-5) /hpf U Epithel Cells (Auto) (0-5) /lpf Urine Bacteria (Auto) (Negative) Diagnostic Findings Exam(s): CT ABDOMEN + PELVIS With Contrast IV Amt: 83 ml optiray 350 EXAM: CT Abdomen and Pelvis With Intravenous Contrast CLINICAL HISTORY: Reason for exam: eval for sbo vs. colitis. TECHNIQUE: Axial computed tomography images of the abdomen and pelvis with intravenous contrast. CTDI is 6.04 mGy and DLP is 269.33 mGy-cm. Automated exposure control was utilized for the study. A dose lowering technique was utilized adhering to the principles of ALARA. CONTRAST: Patient received 83 ml optiray 350 of IV contrast COMPARISON: No relevant prior studies available. FINDINGS: Lung bases: Unremarkable. No mass. No consolidation. Mediastinum: There is a large hiatal hernia. ABDOMEN: Liver: Unremarkable. No mass. Gallbladder and bile ducts: The patient is status post cholecystectomy. Intrahepatic biliary ductal dilatation is stable and most likely related to postcholecystectomy change. Pancreas: Unremarkable. No mass. No ductal dilation. Spleen: Unremarkable. No splenomegaly. Adrenals: Unremarkable. No mass. Kidneys and ureters: Unremarkable. No solid mass. No hydronephrosis. Stomach and bowel: There is a very large amount of stool throughout the colon with associated dilatation of upstream small bowel loops. No mucosal thickening. PELVIS: Appendix: No findings to suggest acute appendicitis. Bladder: Unremarkable. No mass. Reproductive: Unremarkable as visualized. ABDOMEN and PELVIS: Intraperitoneal space: Unremarkable. No free air. No significant fluid collection. Bones/joints: There are degenerative changes of the thoracolumbar spine with lower lumbar spine surgical hardware. No acute fracture. No dislocation. Soft tissues: Unremarkable. Vasculature: Unremarkable. No abdominal aortic aneurysm. Lymph nodes: Unremarkable. No enlarged lymph nodes. IMPRESSION: Very large volume of stool throughout the large bowel with associated upstream distention of small bowel loops. (1) Fecal retention Constipation type: unspecified constipation type Qualified Code(s): K59.00 - Constipation, unspecified
[2023-01-17] MEDS ORDERED: SOD PHOSPHATE/SOD BIPHOSPHATE ENEMA 132 ML BTL PR STA (08:43)
[2023-01-17] MEDS ORDERED: SOD PHOSPHATE/SOD BIPHOSPHATE ENEMA 132 ML BTL PR ONE (10:52)
--- NOTE | 2023-01-17 17:46 | Communication Note ---
Date of Service: January 17, 2023 Seen in follow-up from early a.m. admission. Vivi still bloated and sore, but feels better. Had enema, feels some gurgling in her intestines. Surgical input appreciated. Vitals noted, abdomen moderately distended but only mildly tender no guarding rebound or rigidity. Rectum shows no visible prolapse at this time, some stool leaking out. Large bowel obstructionfecal mediated, fortunately no peritoneal signs, feeling better, rectal prolapse seems to have self resolved. Enema ordered by surgery, continue bowel regimen, continue serial exams and observation. Anticipate improvement. Anticipate need for more aggressive baseline bowel regimen. DVT prophylaxisheparin subcu
[2023-01-17] MEDS: LANSOPRAZOLE 15 MG SOLTAB PO SCH (20:10)
[2023-01-17] MEDS: MAGNESIUM OXIDE 400 MG TAB PO SCH (20:10)
[2023-01-17] MEDS: POLYETHYLENE (MIRALAX) 17 GM PACK PO SCH (20:11)
[2023-01-18] MEDS: LACTATED RINGER'S 1,000 ML IV SCH ×5 (00:11→22:22)
[2023-01-18 06:26] LABS: BUN Creatinine Ratio 30.1 (10-20); Calcium 8.2 mg/dl (8.6-10.3); Creatinine Clr Calc Pharmacy 25.7 ml/min; Est GFR (African American) 56.2 ml/min; Est GFR (Non-African American) 48.5 ml/min; Magnesium 1.9 mg/dl (1.7-2.4); Phosphorus 2.7 mg/dl (2.5-4.9); Potassium 3.7 mmol/L (3.5-5.1)
[2023-01-18 06:34] LABS: Hematocrit (blood only) 31.7 % (37.0-47.0); Hemoglobin 10.4 g/dl (12.0-16.0); Mean Corpuscular Hemoglobin 27.8 pg (25.0-34.0); Mean Corpuscular Hgb Conc 32.8 g/dL (32.0-36.0); Mean Corpuscular Volume 84.8 fL (80.0-100.0); Mean Platelet Volume 9.5 fL (9.4-12.4); Platelet Count 324 K/uL (130-400); RDW Coefficient of Variation 15.2 % (11.5-14.5); Red Blood Count 3.74 M/uL (4.20-5.40); White Blood Count 13.13 K/ul (4.8-10.8)
[2023-01-18] MEDS: HEPARIN SOD 5,000 UNIT/0.5 ML VIAL SQ SCH ×2 (08:01→20:13)
[2023-01-18] MEDS: LANSOPRAZOLE 15 MG SOLTAB PO SCH (08:01)
[2023-01-18] MEDS: POLYETHYLENE (MIRALAX) 17 GM PACK PO SCH ×3 (08:03→20:11)
[2023-01-18] MEDS: MAGNESIUM OXIDE 400 MG TAB PO SCH ×3 (08:06→20:15)
[2023-01-18] MEDS: ASPIRIN 81 MG ECTAB PO SCH (10:37)
[2023-01-18] MEDS: FOLIC ACID 400 MCG TAB PO SCH (10:38)
[2023-01-18] MEDS: amLODIPine BESYLATE 5 MG TAB PO SCH (10:38)
[2023-01-18] MEDS: CALCIUM 600MG + VIT D 400 IU TAB PO SCH (10:38)
[2023-01-18] MEDS: IMIPRAMINE HCL 10 MG TAB PO SCH ×2 (10:38→20:14)
[2023-01-18] MEDS: allopurinoL 100 MG TAB PO SCH (10:38)
[2023-01-18] MEDS: CYANOCOBALAMIN (B-12) 500 MCG TABLET PO SCH (10:38)
[2023-01-18] MEDS: PREGABALIN 50 MG CAP PO SCH (10:40)
--- NOTE | 2023-01-18 12:17 | Surgery Progress Note ---
Date of Service January 18, 2023 Assessment & Plan (1) Fecal retention: Plan: pt is a 87 year-old female who was admitted to hospital for abdominal pain, diarrhea, IMP: fecal retention, caused large bowel obstruction, plan, base on H/P, labs and CT scan finding, recommend fleet enema, try to pass BM first, release bowel obstruction, miralax, po, no rectal prolapse now, consult out-patient colorectal surgeon for further diagnosis and treatment, pt agreed with the plan, I answered all questions, will F/U, 01/18/2023 12:15 PM ding better passed BM, clear diet, bone grinder surgeon will cover pt this weekend, Thanks, Admission and Anticipated Discharge Date Admission Date: January 17, 2023 Subjective F/U large bowel obstruction stool in large bowel, pt doing better, passed BM, less abdominal pain, no rectal prolapse, no fever, Review of Systems Constitutional: as per Subjective / HPI Eyes: as per Subjective / HPI Respiratory: as per Subjective / HPI Cardiovascular: Additional Comments: mitral regurgitation, CHF, HTN Gastrointestinal: rectal prolapse, failed 2 time surgery, GERD Genitourinary: as per Subjective / HPI Neurologic: as per Subjective / HPI Psychiatric: as per Subjective / HPI Endocrine: hypothyroidism Hematologic / Lymphatic: as per Subjective / HPI gout Physical Exam Constitutional: WD/WN, vitals as above Eyes: PERRL, conjunctivae normal, anicteric sclerae Neck: trachea midline, no thyromegaly Respiratory: normal respiratory effort, lungs clear to auscultation Cardiovascular: RRR, no murmur, no edema Gastrointestinal (Abdomen): soft, NT, ND, BS +, no rectal prolapse Neurologic: patellar DTR's 2+ bilat, sensation intact Psychiatric: A+Ox3, euthymic affect Results & Data Vital Signs (Past 12 Hours) Vital Signs Temp Pulse Pulse Pulse Pulse Resp BP 01/18/23 11:05 36.7 C 109 H 18 102/69 01/18/23 08:00 107 H 01/18/23 07:31 37.6 C H 108 H 20 122/62 01/18/23 02:40 37.3 C 89 16 115/56 L Pulse Ox O2 Del Method O2 Flow Rate 01/18/23 11:05 95 Nasal Cannula 2 01/18/23 08:00 01/18/23 07:31 91 Room Air 01/18/23 02:40 93 Nasal Cannula 1 Laboratory Results Abnormal lab results 01/18/23 01/18/23 Range/Units 05:42 05:42 WBC 13.13 H (4.8-10.8) K/ul RBC 3.74 L (4.20-5.40) M/uL Hgb 10.4 L (12.0-16.0) g/dl Hct 31.7 L (37.0-47.0) % RDW Std Deviation 47.0 H (36.4-46.3) fL RDW Coeff of Lea 15.2 H (11.5-14.5) % BUN 31 H (6-23) mg/dl BUN/Creatinine Ratio 30.1 H (10-20) Glucose 110 H (70-99(Fasting)) mg/dl Calcium 8.2 L (8.6-10.3) mg/dl (1) Fecal retention Constipation type: unspecified constipation type Qualified Code(s): K59.00 - Constipation, unspecified
[2023-01-18] MEDS: cephALEXin 250 MG CAP PO SCH ×2 (12:36→20:13)
--- NOTE | 2023-01-18 16:18 | Hospitalist Progress Note ---
Date of Service January 18, 2023 Assessment & Plan (1) Large bowel obstruction: Plan: 87-year-old woman who presented with lower abdominal pain and diarrhea x3 weeks. Now admitted for further management of large bowel obstruction secondary to rectal prolapse. Large bowel obstruction Discovered on CT A/P. No evidence of pneumoperitoneum or inflammation. Patient has had overflow diarrhea and fecal incontinence. Patient is afebrile. UA + leuk esterase. Was initially made n.p.o. but able to have a bowel movement on 01/18. We will start with clear liquid diet in [place] as tolerated. Urinary tract infection Patient's urinary symptoms most in line with UTI UA positive, though has multiple epithelial cells We will start treatment with Keflex twice daily given symptoms, repeat UA Rectal prolapse Patient is s/p 2 failed surgical revision attempts. Discussed with general surgery. Recommend patient have follow-up with colorectal surgery as an outpatient Currently does not have rectal prolapse at this time Chronic conditions (gout, hypertension, GERD, neuropathic pain, bladder incontinence): Restarted meds on 01/18 Code: Conditional code Dispo: Med-Surg telemetry FEN/GI: Clear liquids advance as tolerated, maintenance LR DVT Prophylaxis: SQ heparin 5000 units every 12 hours PT/OT: Yes Consults: None (2) Rectal prolapse: (3) Hypothyroidism: (4) Gout: (5) Neuropathic pain: (6) Hypertension: (7) GERD (gastroesophageal reflux disease): Admission and Anticipated Discharge Date Admission Date: January 17, 2023 Supervising Physician Co-Signing Physician Notes I personally examined the patient and verified all lewis points of history and exam, discussed case, and agree with decision making with Dr Wilkinson Ate a little earlier, now some nausea. Abdominal pain not really worse, just nauseated. Notes that she actually did breakfast and lunch prior to nausea starting. Has had ongoing bowel movementsfeels like quite a bit. Belly still hurts. Vitals noted, in general she appears very still from being nauseated, breathing unlabored no accessory muscle use good effort. Abdomen is soft moderately distended moderate diffuse tenderness, probably worse epigastricfairly similar to yesterday, except that her lower abdomen may be slightly less distended, but obviously this would be subtle and nonspecific. Large bowel obstruction/rectal prolapsefortunately rectal prolapse improved, large bowel obstruction predominantly due to stool burdenwas given an enema, as well as ongoing MiraLAXseems to be slowly improving. Her nausea was concerning, but given her abdominal exam is the same to may be slightly better than yesterday and her bowels are moving, as well as the fact that she is not having vomiting/other symptoms of worsening obstructionreassuring. Certainly if obstruction symptoms were to recur or worsen an NG tube may need to be considered, but for nowZofran, continue bowel regimen, continue supportive care. Subjective Patient was seen bedside this morning. States that she was able to have a significant bowel movement recently. She states that her pain is less at this time. Though she does complain of urinary incontinence. She also complains of urinary frequency and urgency. Review of Systems Review of Systems: All systems reviewed & are unremarkable except as noted in Subjective Physical Exam Constitutional: WD/WN, vitals as above Eyes: PERRL, conjunctivae normal, anicteric sclerae Neck: trachea midline, no thyromegaly Respiratory: normal respiratory effort, lungs clear to auscultation Cardiovascular: RRR, no murmur, no edema Gastrointestinal (Abdomen): normal bowel sounds, soft, nontender, no hepatosplenomegaly Musculoskeletal: no cyanosis or clubbing, extremities motor strength 5/5 Neurologic: patellar DTR's 2+ bilat, sensation intact Psychiatric: A+Ox3, euthymic affect Results & Data Results & Data Vital Signs (Past 12 Hours) Vital Signs Temp Pulse Pulse Pulse Resp BP Pulse Ox 01/18/23 16:07 37.6 C H 109 H 16 128/72 90 01/18/23 11:05 36.7 C 109 H 18 102/69 95 01/18/23 08:00 107 H 01/18/23 07:31 37.6 C H 108 H 20 122/62 91 O2 Del Method O2 Flow Rate 01/18/23 16:07 Nasal Cannula 0.5 01/18/23 11:05 Nasal Cannula 2 01/18/23 08:00 01/18/23 07:31 Room Air Resident Activity Tracking Resident Involvement: Resident Care Provided Care Provided: Adult Hospital Medicine
[2023-01-18] MEDS ORDERED: ONDANSETRON INJ 2 MG/ML 2 ML VIAL IV STA (16:47)
--- NOTE | 2023-01-18 19:06 | Billing Data ---
Date of Service January 18, 2023 Coding Level of Care Code 98421 SUB INP/OBS CARE MIN
--- NOTE | 2023-01-18 19:06 | Billing Data ---
Date of Service January 18, 2023 Coding Level of Care Code 11384 SUB INP/OBS CARE MIN
[2023-01-18] MEDS: PANTOprazole 40 MG TAB PO SCH (20:15)
[2023-01-18] MEDS: TOLTERODINE TARTRATE LA 4 MG CAPCR PO SCH (20:15)
[2023-01-18] MEDS: DOXEPIN HCL 10 MG CAPSULE PO SCH (20:15)
[2023-01-18] MEDS: ONDANSETRON INJ 2 MG/ML 2 ML VIAL IV PRN (21:09)
--- NOTE | 2023-01-18 21:17 | Electrocardiogram Report ---
Test Reason : Blood Pressure : / mmHG Vent. Rate : 111 BPM Atrial Rate : 111 BPM P-R Int : 160 ms QRS Dur : 086 ms QT Int : 334 ms P-R-T Axes : 044 -22 093 degrees QTc Int : 454 ms Sinus tachycardia Inferior infarct , age undetermined Possible Anterior infarct , age undetermined Nonspecific ST and T wave abnormality Abnormal ECG When compared with ECG of 01-OCT-2021 20:20, UT interval has decreased Vent. rate has increased BY 39 BPM Borderline criteria for Anterior infarct are now Present Non-specific change in ST segment in Lateral leads Confirmed by Janak Quiroga ([id number] on 01/18/2023 9:17:09 PM Referred By: REFERRED SELF Confirmed By:Janak Quiroga
--- NOTE | 2023-01-18 21:19 | Electrocardiogram Report ---
Test Reason : Blood Pressure : / mmHG Vent. Rate : 109 BPM Atrial Rate : 109 BPM P-R Int : 178 ms QRS Dur : 088 ms QT Int : 328 ms P-R-T Axes : 008 -20 068 degrees QTc Int : 441 ms Sinus tachycardia with occasional Premature ventricular complexes Inferior infarct When compared with ECG of 16-JAN-2023 23:55, Premature ventricular complexes are now Present Borderline criteria for Anterior infarct are no longer Present T wave inversion no longer evident in Lateral leads Confirmed by Janak Quiroga ([id number] on 01/18/2023 9:19:05 PM Referred By: REFERRED SELF Confirmed By:Janak Quiroga
--- NOTE | 2023-01-19 02:47 | Billing Data ---
Date of Service January 19, 2023 Coding Level of Care Code 47320 INT INP/OBS CARE
[2023-01-19] MEDS: LEVOTHYROXINE SODIUM 50 MCG TABLET PO SCH (05:45)
[2023-01-19 07:28] LABS: Hematocrit (blood only) 34.2 % (37.0-47.0); Hemoglobin 11.5 g/dl (12.0-16.0); Mean Corpuscular Hgb Conc 33.6 g/dL (32.0-36.0); Mean Corpuscular Volume 83.2 fL (80.0-100.0); Mean Platelet Volume 9.6 fL (9.4-12.4); Platelet Count 357 K/uL (130-400); RDW Coefficient of Variation 14.7 % (11.5-14.5); RDW Standard Deviation 44.9 fL (36.4-46.3); Red Blood Count 4.11 M/uL (4.20-5.40); White Blood Count 6.95 K/ul (4.8-10.8)
[2023-01-19 07:50] LABS: BUN Creatinine Ratio 39.3 (10-20); Calcium 8.1 mg/dl (8.6-10.3); Creatinine Clr Calc Pharmacy 29.8 ml/min; Est GFR (African American) 67.1 ml/min; Est GFR (Non-African American) 57.9 ml/min; Potassium 3.7 mmol/L (3.5-5.1)
[2023-01-19] MEDS: FOLIC ACID 400 MCG TAB PO SCH (08:09)
[2023-01-19] MEDS: IMIPRAMINE HCL 10 MG TAB PO SCH ×2 (08:09→23:42)
[2023-01-19] MEDS: ASPIRIN 81 MG ECTAB PO SCH (08:09)
[2023-01-19] MEDS: PREGABALIN 50 MG CAP PO SCH (08:09)
[2023-01-19] MEDS: MAGNESIUM OXIDE 400 MG TAB PO SCH ×3 (08:10→23:43)
[2023-01-19] MEDS: CALCIUM 600MG + VIT D 400 IU TAB PO SCH (08:10)
[2023-01-19] MEDS: cephALEXin 250 MG CAP PO SCH ×2 (08:10→23:42)
[2023-01-19] MEDS: HEPARIN SOD 5,000 UNIT/0.5 ML VIAL SQ SCH ×2 (08:10→23:41)
[2023-01-19] MEDS: amLODIPine BESYLATE 5 MG TAB PO SCH (08:10)
[2023-01-19] MEDS: CYANOCOBALAMIN (B-12) 500 MCG TABLET PO SCH (08:11)
[2023-01-19] MEDS: POLYETHYLENE (MIRALAX) 17 GM PACK PO SCH ×3 (08:11→23:43)
[2023-01-19] MEDS: allopurinoL 100 MG TAB PO SCH (08:11)
--- NOTE | 2023-01-19 08:16 | Hospitalist Progress Note ---
Date of Service January 19, 2023 Assessment & Plan (1) Large bowel obstruction: Plan: 87-year-old woman who presented with lower abdominal pain and diarrhea x3 weeks. Now admitted for further management of large bowel obstruction secondary to rectal prolapse. Large bowel obstruction CTAP showed large stool burden in large bowel with distention of small bowel loops. No evidence of pneumoperitoneum or inflammation. Patient has had overflow diarrhea and fecal incontinence (secondary to recurrent rectal prolapse) Was initially made NPO but able to have a bowel movement on 01/18; started on clear liquid diet and able to advance as tolerated Urinary tract infection Pt denied burning with urination, but does endorse incontinence UA positive for leuk esterase, though has multiple epithelial cells; urine cx contaminated continue keflex BID Rectal prolapse Patient is s/p 2 failed surgical revision attempts Discussed with general surgery. Recommend patient have follow-up with colorectal surgery as an outpatient upon discharge Currently does not have rectal prolapse at this time Chronic conditions (gout, hypertension, GERD, neuropathic pain, bladder incontinence): Restarted meds on 01/18 Code: Conditional code Dispo: med surg w/ tele FEN/GI: Advance as tolerated, continue maintenance LR until pt tolerating PO well DVT Prophylaxis: SQ heparin 5000 units every 12 hours PT/OT: Yes Consults: None (2) Rectal prolapse: (3) Hypothyroidism: (4) Gout: (5) Neuropathic pain: (6) Hypertension: (7) GERD (gastroesophageal reflux disease): Admission and Anticipated Discharge Date Admission Date: January 17, 2023 Supervising Physician Co-Signing Physician Notes I personally examined the patient and verified all lewis points of history and exam, discussed case, and agree with decision making with Dr Pelayo. Feeling better. Eating okay. Still little bit of nausea but definitely less. Ongoing bowel movements. Belly does not really hurt. Starting to wonder about going home. Vitals noted, in general she appears very still from being nauseated, breathing unlabored no accessory muscle use good effort. Lungs are clear, but diminished air entry especially bibasilar. Abdomen is soft moderately distended no tenderness, and definitely improved from yesterday. Not tender now. Large bowel obstruction/rectal prolapsefortunately rectal prolapse improved, large bowel obstruction predominantly due to stool burdenwas given an enema, as well as ongoing MiraLAXseems to be slowly improving. Advance diet, continue bowel regimen. Hypoxia is likely due to atelectasisincrease movement/activity. If she is able to eat, able to walk around okay, and able to wean oxygenhopefully home tomorrow. Will need a more aggressive chronic bowel regimen Subjective Pt seen at bedside this AM. She states she is feeling better overall; however, her appetite is still not adequate. She thinks this is because she does not like the liquid diet and would prefer things like toast. She denies abdominal pain, chest pain, or SOB. Review of Systems Review of Systems: All systems reviewed & are unremarkable except as noted in HPI & below Physical Exam Constitutional: NAD. Vitals WNL. Eyes: no conjunctival abnormality Respiratory: CTA bilaterally. No rhonchi, wheezing, or crackles. Diminished breath sounds throughout. Non labored breathing. Cardiovascular: RRR. No murmur noted. Gastrointestinal (Abdomen): Distended, soft, nontender, +BS. No masses noted. Skin: no rashes, warm and dry Psychiatric: Alert. Mood and affect congruent. Results & Data Results & Data Vital Signs (Past 12 Hours) Vital Signs Temp Pulse Pulse Resp BP Pulse Ox O2 Del Method 01/19/23 07:55 36.6 C 111 H 18 131/68 91 Nasal Cannula 01/19/23 04:22 37.5 C 119 H 20 128/80 93 Nasal Cannula 01/18/23 22:01 113 H 01/18/23 23:25 37.7 C H 115 H 20 133/74 94 Nasal Cannula 01/18/23 21:00 Nasal Cannula O2 Flow Rate 01/19/23 07:55 2 01/19/23 04:22 2 01/18/23 22:01 01/18/23 23:25 2 01/18/23 21:00 2 Resident Activity Tracking Resident Involvement: Resident Care Provided Care Provided: Adult Hospital Medicine
--- NOTE | 2023-01-19 09:34 | Surgery Progress Note ---
Date of Service January 19, 2023 Assessment & Plan (1) Fecal retention: Plan: She continues to have bowel movements and is tolerating a clear liquid diet Can advance her diet as tolerated and continue an aggressive bowel regimen No signs of rectal prolapse since admission If she can tolerate a diet and is having bowel movements she stable to be discharged from a surgical standpoint We will follow while admitted (2) Rectal prolapse: Admission and Anticipated Discharge Date Admission Date: January 17, 2023 Subjective Patient seen and examined. Had a bowel movement this morning. Denies any abdominal pain. Denies any nausea or vomiting and tolerating a clear liquid diet. Review of Systems Constitutional: no fever and no chills Physical Exam Constitutional: WD/WN, vitals as above Gastrointestinal (Abdomen): Inspection/Auscultation: abdomen normal to inspection; abdomen not distended Percussion/Palpation: abdomen soft; abdomen nontender, no guarding and abdomen not rigid Results & Data Vital Signs (Past 12 Hours) Vital Signs Temp Pulse Pulse Resp BP Pulse Ox O2 Del Method 01/19/23 07:55 36.6 C 111 H 18 131/68 91 Nasal Cannula 01/19/23 04:22 37.5 C 119 H 20 128/80 93 Nasal Cannula 01/18/23 22:01 113 H 01/18/23 23:25 37.7 C H 115 H 20 133/74 94 Nasal Cannula O2 Flow Rate 01/19/23 07:55 2 01/19/23 04:22 2 01/18/23 22:01 01/18/23 23:25 2 PG Care Time/CCT Total # of Minutes Spent Total Time Spent with Patient: Total time spent is greater than 50% in coordination of care (as documented) at patient's floor/unit and/or counseling patient: Coding Level of Care Code 90203 SUB INP/OBS CARE 10/31MIN Diagnoses Fecal retention K59.00 Constipation type: unspecified constipation type Rectal prolapse K62.3 (1) Fecal retention Constipation type: unspecified constipation type Qualified Code(s): K59.00 - Constipation, unspecified
[2023-01-19] MEDS: LACTATED RINGER'S 1,000 ML IV SCH (17:17)
[2023-01-19] MEDS: ONDANSETRON INJ 2 MG/ML 2 ML VIAL IV PRN ×2 (17:17→21:45)
--- NOTE | 2023-01-19 19:24 | Billing Data ---
Date of Service January 19, 2023 Coding Level of Care Code 29686 SUB INP/OBS CARE MIN
[2023-01-19 21:54] LABS: Appearance Urine Turbid (Clear); Bacteria Urine Automated 4+ (Negative); Blood Urine Negative (Negative); Color Urine Dark Yellow; Epithelial Cell Urine Auto >30 /lpf (0-5); Glucose Urine UA Negative (Negative); Ketones Urine Negative (Negative); Leukocyte Esterase Urine 1+ (Negative); Nitrite Urine Positive (Negative); Protein Urine 1+ (Negative); Specific Gravity Urine 1.026 (1.000-1.030); Urobilinogen Urine Negative (Negative)
[2023-01-19 21:58] LABS: Bilirubin Urine 1+ (Negative)
[2023-01-19 22:13] LABS: Amorphous Sediment Urine Present (None Prsent); Cast Urine Automated 0 /lpf (0-5); RBC Urine Automated 0-4 /hpf (0-4)
[2023-01-19] MEDS: DOXEPIN HCL 10 MG CAPSULE PO SCH (23:42)
[2023-01-19] MEDS: TOLTERODINE TARTRATE LA 4 MG CAPCR PO SCH (23:43)
[2023-01-19] MEDS: PANTOprazole 40 MG TAB PO SCH (23:43)
[2023-01-20] MEDS: ONDANSETRON INJ 2 MG/ML 2 ML VIAL IV PRN ×2 (02:18→06:23)
[2023-01-20] MEDS: LEVOTHYROXINE SODIUM 50 MCG TABLET PO SCH (05:47)
--- NOTE | 2023-01-20 05:48 | Surgery Progress Note ---
Date of Service January 20, 2023 Assessment & Plan (1) Fecal retention: Plan: The patient has been admitted on the hospitalist service. We recommend proceeding as follows: As the patient is noted to have multiple episodes of emesis last evening would recommend backing patient's diet back to n.p.o. Hydration measures with IV fluid should be implemented. This has been addressed by the primary service. -KUB performed by hospitalist service showed concern for pneumoperitoneum -Due to KUB findings, CT scan of abdomen ordered. Further recommendations pending these results Admission and Anticipated Discharge Date Admission Date: January 17, 2023 Supervising Physician Co-Signing Physician Notes I personally saw and evaluated the patient with Neal Oquendo PA-C and agree with the assessment and plan 87-year-old female here with fecal retention and previous rectal prolapse, now with possible pneumoperitoneum KUB results and images personally viewed by myself she does have fecal retention The patient is stable overall and I think a CT of the abdomen pelvis would be indicated at this time to ensure was being seen on KUB is true pneumoperitoneum We will follow-up the CT results and further treatment plan at that time Subjective Patient is resting comfortably in bed. She notes that she has had a bowel movement last evening. At the time of my interview with the patient she denied any abdominal pain or nausea or vomiting. She notes that she felt relatively well. I was notified by nursing staff, however that patient had multiple episodes of nausea and vomiting last evening requiring multiple doses of Zofran. RN notes she has notified the hospitlaits service of this as well. Physical Exam Gastrointestinal (Abdomen): Abdomen is soft with mild distention. There is no rebound tenderness or guarding. There is no pain with palpation. Results & Data Vital Signs (Past 12 Hours) Vital Signs Temp Pulse Pulse Resp BP Pulse Ox O2 Del Method 01/20/23 05:12 37.3 C 119 H 20 164/90 H 92 Nasal Cannula 01/20/23 04:56 37.3 C 120 H 20 155/97 H 91 Nasal Cannula 01/19/23 20:00 Nasal Cannula 01/19/23 22:01 114 H 01/19/23 23:52 37.1 C 113 H 20 137/86 92 Nasal Cannula 01/19/23 19:49 36.8 C 111 H 20 143/85 H 92 Nasal Cannula O2 Flow Rate 01/20/23 05:12 4 01/20/23 04:56 4 01/19/23 20:00 3 01/19/23 22:01 01/19/23 23:52 3 01/19/23 19:49 3 PG Care Time/CCT Total # of Minutes Spent Total Time Spent with Patient: Total time spent is greater than 50% in coordination of care (as documented) at patient's floor/unit and/or counseling patient: Coding Level of Care Code 60702 SUB INP/OBS CARE 10/31MIN Diagnoses Fecal retention K59.00 Constipation type: unspecified constipation type (1) Fecal retention Constipation type: unspecified constipation type Qualified Code(s): K59.00 - Constipation, unspecified
[2023-01-20] MEDS ORDERED: PROMETHAZINE HCL 12.5 MG in SODIUM CHLORIDE 0.9% 50 ML IV ONE (07:15)
[2023-01-20 07:28] LABS: Hemoglobin 11.9 g/dl (12.0-16.0); Mean Corpuscular Hemoglobin 27.2 pg (25.0-34.0); Mean Corpuscular Hgb Conc 33.1 g/dL (32.0-36.0); Mean Corpuscular Volume 82.4 fL (80.0-100.0); Mean Platelet Volume 9.5 fL (9.4-12.4); Platelet Count 392 K/uL (130-400); RDW Standard Deviation 45.2 fL (36.4-46.3); Red Blood Count 4.37 M/uL (4.20-5.40); White Blood Count 6.92 K/ul (4.8-10.8)
[2023-01-20 07:54] LABS: BUN Creatinine Ratio 37.9 (10-20); Calcium 8.5 mg/dl (8.6-10.3); Creatinine Clr Calc Pharmacy 20.7 ml/min; Est GFR (African American) 38.8 ml/min; Est GFR (Non-African American) 33.5 ml/min; Potassium 3.6 mmol/L (3.5-5.1)
[2023-01-20] MEDS: LACTATED RINGER'S 1,000 ML IV SCH ×2 (08:17→16:33)
--- NOTE | 2023-01-20 08:18 | Hospitalist Progress Note ---
Date of Service January 20, 2023 Assessment & Plan (1) Large bowel obstruction: Plan: 87-year-old woman who presented with lower abdominal pain and diarrhea x3 weeks. Now admitted for further management of large bowel obstruction secondary to rectal prolapse. Sigmoid colon necrosis/SBO CTAP 01/17 showed large stool burden in large bowel with distention of small bowel loops. No evidence of pneumoperitoneum or inflammation. Patient has had overflow diarrhea and fecal incontinence (secondary to recurrent rectal prolapse) Was initially made NPO but able to have a bowel movement on 01/18; started on clear liquid diet and able to advance to solids - 01/19-01/20; pt extremely nausea w/ vomiting overnight - KUB and f/u CT concerning for bowel perforation; pt underwent ex lap which revealed necrosis of sigmoid colon and SBO caused by inflammatory changes from the necrosis - pt currently has an open abdomen with wound vac in place, NG tube in place - continue zosyn - further management per ICU recommendations Hypoxia - no hx of lung disease - prior to surgical intervention, increasing oxygen requirement - CXR showed pleural effusions with pulmonary edema - echo pending Urinary tract infection Pt denied burning with urination, but does endorse chronic incontinence UA positive for leuk esterase, though has multiple epithelial cells; urine cx >100,000 gram pos cocci continue keflex BID - pt currently with johnson in place Rectal prolapse Patient is s/p 2 failed surgical revision attempts Discussed with general surgery. Recommend patient have follow-up with colorectal surgery as an outpatient upon discharge Currently does not have rectal prolapse HTN - hold medications per ICU Chronic conditions (gout, GERD, neuropathic pain, bladder incontinence): Restarted meds on 01/18 Code: Conditional code Dispo: upgraded to ICU FEN/GI: NPO, pt intubated and sedated DVT Prophylaxis: SCDs Consults: [facility] (2) Rectal prolapse: (3) Hypothyroidism: (4) Gout: (5) Neuropathic pain: (6) Hypertension: (7) GERD (gastroesophageal reflux disease): (8) Intestinal necrosis: Admission and Anticipated Discharge Date Admission Date: January 17, 2023 Supervising Physician Co-Signing Physician Notes I personally examined the patient and verified all lewis points of history and exam, discussed case, and agree with decision making with Dr Pelayo On chart review, tachycardia, elevated creatinine, worsening oxygen requirement all noted. Discussed with resident physician who promptly was evaluating patient, while I placed orders for EKG and KUB. She evaluated patient and felt chest x-ray warranted as welland added this to the orders. Patient sent promptly for above-noted studies. On return of studies, radiology called promptly noting that it appeared there was free air in her abdomen. At this point, having already discussed with the resident physician after she had evaluated patient, I promptly evaluated patient as well. Patient herself looks oddly comfortablewondering if she still might be able to go home today. In spite of being on a 7 L oxy mask she denies shortness of breath, and she denies any abdominal pain. Notes that she had some nausea and vomiting through the night. Vitals noted, in general she is surprisingly in no distress, HEENT normocephalic atraumatic mucous membranes moist. Lungs are diminished particularly bibasilar but no rales rhonchi or wheezes good effort. Abdomen is surprisingly soft, moderate distended very similar to yesterday no guarding rebound or rigidity not even really tender. Rectum appears slightly more prominent than on last evaluation, smeared with stool, but certainly nothing overtly prolapsed. KUB showing free air, creatinine 1.4 as above, discussed with radiology, also discussed with general surgerysent for stat CT. Overall findings quite concerningtaken promptly to the OR. 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 Otherwise as above. Subjective Pt seen at bedside this AM. Pt was nauseous and vomiting throughout the night. Zofran did not seem to help. This morning, she states that her nausea was much better than overnight. Pt also explains that she was feeling SOB overnight so her oxygen was increased. She was not SOB this AM. Denies abdominal pain, chest pain, or leg pains. Review of Systems Review of Systems: All systems reviewed & are unremarkable except as noted in HPI & below Physical Exam Physical Exam: Constitutional: well appearing, no acute distress HEENT: normocephalic, no conjunctival injection CV: RRR, no murmur, no LE edema Respiratory: Diminished breath sounds throughout. No rhonchi, wheezes, or crackles. Mildly increased work of breathing GI: soft, distended, tender in LLQ, diminished bowel sounds, no guarding present MSK: no gross deformities noted Skin: warm, dry, no rashes Neuro: alert, oriented, no FND noted Psych: mood and affect congruent Results & Data Results & Data Vital Signs (Past 12 Hours) Vital Signs Temp Pulse Pulse Resp BP Pulse Ox O2 Del Method 01/20/23 05:12 37.3 C 119 H 20 164/90 H 92 Nasal Cannula 01/20/23 04:56 37.3 C 120 H 20 155/97 H 91 Nasal Cannula 01/19/23 22:01 114 H 01/19/23 23:52 37.1 C 113 H 20 137/86 92 Nasal Cannula O2 Flow Rate 01/20/23 05:12 4 01/20/23 04:56 4 01/19/23 22:01 01/19/23 23:52 3 Resident Activity Tracking Resident Involvement: Resident Care Provided Care Provided: Adult Hospital Medicine
--- NOTE | 2023-01-20 09:38 | XRay Report ---
TWO VIEW CHEST CLINICAL HISTORY: Hypoxia.. FINDINGS: AP and lateral chest radiographs are compared to study dated 01/17/2023 and correlated with chest CT dated 02/28/2022. There is a large hiatal hernia. Marked dilatation of the intrathoracic stom ach or esophagus is again noted. The heart is enlarged. There is pulmonary vascular congestion. Bilat eral airspace opacities likely represent pulmonary edema. There are layering pleural effusions with d ependent consolidation. Emphysematous change is again noted. There is no pneumothorax. The skeletal s tructures are osteopenic. The bony thorax appears intact. Degenerative change and scoliosis is seen i n the spine. Arthritic change is noted in the shoulders. 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 Cholecystectomy clips are noted in the right upper quadrant. IMPRESSION: 1. Cardiomegaly an emphysema with evidence of congestive failure and pulmonary edema. This is new fro m 01/17/2023. 2. Layering pleural effusions with dependent consolidation. 3. Large hiatal hernia with distention of the intrathoracic stomach/esophagus. ACT 112: Negative or not required by law. Electronically signed by: Malcom Pompa M.D. 01/20/2023 9:35 AM
--- NOTE | 2023-01-20 09:57 | XRay Report ---
KUB CLINICAL HISTORY: Large bowel obstruction. FINDINGS: 2 AP, portable, supine abdominal radiographs are correlated with abdominal CT dated 01/18/20 23. There is moderate to severe fecal retention. There are severely distended loops of small bowel wh ich measure up to 6 cm. This is consistent with a high-grade small bowel obstruction. Pneumoperitoneu m is seen in the left upper quadrant. Foci of serpiginous gas in the pelvis correspond to pneumatosis when correlated with the recent CT scan. Cholecystectomy clips are seen in the right upper quadrant. There are calcified splenic artery aneurysms. The skeletal structures are osteopenic and appear inta ct. There is advanced cervical spondylosis and scoliosis with postsurgical change at the lumbosacral junction. IMPRESSION: 1. High-grade small bowel obstruction and pneumoperitoneum. Surgical evaluation is advised. 2. Moderate to severe colonic fecal retention. 3. Pneumatosis intestinalis of the colon is seen in the pelvis. Findings were discussed with Dr. Pelayo at the time of interpretation. Electronically signed by: Malcom Pompa M.D. 01/20/2023 9:55 AM
[2023-01-20] MEDS ORDERED: PIPERACILLIN/TAZOBACTAM 3.375 GM in DEXTROSE 5% 100 ML IV ONE (10:45)
[2023-01-20] MEDS: ASPIRIN 81 MG ECTAB PO SCH (12:05)
[2023-01-20] MEDS: CYANOCOBALAMIN (B-12) 500 MCG TABLET PO SCH (12:05)
[2023-01-20] MEDS: CALCIUM 600MG + VIT D 400 IU TAB PO SCH (12:05)
[2023-01-20] MEDS: cephALEXin 250 MG CAP PO SCH (12:05)
[2023-01-20] MEDS: amLODIPine BESYLATE 5 MG TAB PO SCH (12:05)
[2023-01-20] MEDS: allopurinoL 100 MG TAB PO SCH (12:05)
[2023-01-20] MEDS: HEPARIN SOD 5,000 UNIT/0.5 ML VIAL SQ SCH (12:05)
[2023-01-20] MEDS: FOLIC ACID 400 MCG TAB PO SCH (12:05)
[2023-01-20] MEDS: MAGNESIUM OXIDE 400 MG TAB PO SCH ×2 (12:06→15:26)
[2023-01-20] MEDS: IMIPRAMINE HCL 10 MG TAB PO SCH (12:06)
[2023-01-20] MEDS: PREGABALIN 50 MG CAP PO SCH (12:06)
[2023-01-20] MEDS: POLYETHYLENE (MIRALAX) 17 GM PACK PO SCH ×2 (12:06→15:26)
[2023-01-20] MEDS ORDERED: HYDROmorphone INJ 2 MG/ML SYR/VIAL IV PRN (12:09)
[2023-01-20] MEDS ORDERED: ATROPINE SULFATE 0.1 MG/ML 10ML SYR IV PRN (12:09)
[2023-01-20] MEDS ORDERED: ePHEDrine sulfate 50 MG/ML AMP IV PRN (12:09)
--- NOTE | 2023-01-20 12:13 | Anesthesiology Consultation ---
Date of Service January 20, 2023 Assessment & Plan Chart Review Chart Review: Acceptable Risk for Surgery Consults Requested none ASA [id number] Proposed Anesthesia Anesthesia Type: General Anesthesia Line Insertion: Arterial line and Central Venous Catheter Risk / Benefits Reviewed With: PT / POA / Parent / Guardian, Accepts Plan and Informed Consent Obtained History Surgery Operation Date: 01/20/23 13:00 Proposed Procedures p Exploratory Laparotomy - Rohan Randhawa, Height/Weight Height: 4 ft 11 in Weight: 53.2 kg Allergies Allergy/AdvReac Type Severity Reaction Status Date / Time No Known Allergies Allergy Unknown ` Verified 01/17/23 00:07 Medications Home Medications Medication Instructions Recorded Confirmed Last Taken aspirin 81 mg tablet,delayed 81 mg PO DAILY 10/01/21 01/17/23 01/16/23 release (Maggy Low Dose Aspirin) omeprazole 20 mg capsule,delayed 20 mg PO HS 12/25/21 01/17/23 01/16/23 release levothyroxine 50 mcg tablet 50 mcg PO DAILYBB #90 tabs 10/22/22 01/17/23 01/16/23 allopurinol 100 mg tablet 100 mg PO DAILY #90 tabs 11/12/22 01/17/23 01/16/23 amlodipine 2.5 mg tablet 2.5 mg PO DAILY #90 tabs 11/29/22 01/17/23 01/16/23 imipramine HCl 10 mg tablet 20 mg PO BID #360 tabs 11/29/22 01/17/23 01/16/23 pregabalin 50 mg capsule (Lyrica) 50 mg PO DAILY #30 caps 11/29/22 01/17/23 01/16/23 calcium carbonate 600 mg-vitamin 1 tab PO DAILY 01/17/23 01/17/23 01/16/23 D3 10 mcg (400 unit) tablet (Calcium 600 + D(3)) cyanocobalamin (vitamin B-12) 500 500 mcg PO DAILY 01/17/23 01/17/23 01/16/23 mcg tablet (Vitamin B-12) doxepin 10 mg capsule 10 mg PO HS 01/17/23 01/17/23 01/16/23 folic acid 400 mcg tablet 0.4 mg PO DAILY 01/17/23 01/17/23 01/16/23 tolterodine 4 mg capsule,extended 4 mg PO HS 01/17/23 01/17/23 01/16/23 release 24 hr Active Medications Generic Name Dose Route Start Last Admin Trade Name Marge PRN Reason Stop Dose Admin Allopurinol 100 mg 01/18/23 09:45 01/20/23 12:05 Allopurinol 100 Mg Tab PO 02/17/23 09:44 Not Given DAILY [facility] Amlodipine Besylate 2.5 mg 01/18/23 09:45 01/20/23 12:05 Amlodipine Besylate 5 Mg Tab PO 02/17/23 09:44 Not Given DAILY [facility] Aspirin 81 mg 01/18/23 09:45 01/20/23 12:05 Aspirin 81 Mg Ectab PO 02/17/23 09:44 Not Given DAILY [facility] Calcium/Vitamin D 1 tab 01/18/23 09:45 01/20/23 12:05 Calcium 600mg + Vit D 400 Iu Tab PO 02/17/23 09:44 Not Given DAILY [facility] Cephalexin HCl 250 mg 01/18/23 12:15 01/20/23 12:05 Cephalexin 250 Mg Cap PO 01/23/23 12:14 Not Given BID [facility] Protocol Cyanocobalamin 500 mcg 01/18/23 09:45 01/20/23 12:05 Cyanocobalamin (B-12) 500 Mcg Tablet PO 02/17/23 09:44 Not Given DAILY [facility] Doxepin HCl 10 mg 01/18/23 21:00 01/19/23 23:42 Doxepin Hcl 10 Mg Capsule PO 02/17/23 20:59 Not Given [facility] Folic Acid 400 mcg 01/18/23 09:45 01/20/23 12:05 Folic Acid 400 Mcg Tab PO 02/17/23 09:44 Not Given DAILY [facility] Heparin Sodium (Porcine) 5,000 units 01/17/23 09:00 01/20/23 12:05 Heparin Sod 5,000 Unit/0.5 Ml Vial SQ 02/16/23 08:59 Not Given Q12 [facility] Lactated Ringer's 1,000 mls @ 150 mls/hr 01/20/23 07:15 01/20/23 08:17 Lr IV 02/19/23 07:14 100 mls/hr .Q6H40M [facility] Administration Imipramine HCl 20 mg 01/18/23 09:45 01/20/23 12:06 Imipramine Hcl 10 Mg Tab PO 02/17/23 09:44 Not Given BID [facility] Levothyroxine Sodium 50 mcg 01/19/23 06:30 01/20/23 05:47 Levothyroxine Sodium 50 Mcg Tablet PO 02/18/23 06:29 50 mcg DAILYBB [facility] Administration Magnesium Oxide 400 mg 01/17/23 21:00 01/20/23 12:06 Magnesium Oxide 400 Mg Tab PO 02/16/23 20:59 Not Given TID [facility] Ondansetron HCl 4 mg 01/18/23 20:12 01/20/23 06:23 Ondansetron Inj 2 Mg/Ml 2 Ml Vial IV 02/17/23 20:11 4 mg Q4H PRN Administration Nausea Pantoprazole Sodium 40 mg 01/18/23 21:00 01/19/23 23:43 Pantoprazole 40 Mg Tab PO 02/17/23 20:59 Not Given HS [facility] Protocol Polyethylene Glycol 17 gm 01/17/23 21:00 01/20/23 12:06 Polyethylene (Miralax) 17 Gm Pack PO 02/16/23 20:59 Not Given TID [facility] Pregabalin 50 mg 01/18/23 09:45 01/20/23 12:06 Pregabalin 50 Mg Cap PO 02/17/23 09:44 Not Given DAILY [facility] Tolterodine Tartrate 4 mg 01/18/23 21:00 01/19/23 23:43 Tolterodine Tartrate La 4 Mg Capcr PO 02/17/23 20:59 Not Given HS [facility] Past Medical History Medical History (Updated 01/20/23 @ 12:44 by Rohan Randhawa DO) Anemia Chronic kidney disease, stage 3 (moderate) Diarrhea GERD (gastroesophageal reflux disease) Hiatal hernia History of cervical cancer Hypertension Osteoarthritis Osteoporosis Peripheral neuropathy Pressure ulcer of left foot, stage 3 Traumatic open wound of left lower leg Traumatic open wound of right lower leg Exercise / Class Metabolic Activity II 4-5 Yardwork/Stairs/Walk up hill Past Family History Family History Father Mouth cancer Mother Myocardial infarction, Onset Age: 82 Aunt Breast cancer Denies family history of Ovarian cancer Prostate cancer Colorectal cancer Past Surgical History Surgical History H/O bladder repair surgery History of back surgery x [address] of rectal surgery [address] Flores Whitman - for rectal prolapse on 05/08/22. Hx of cholecystectomy S/P anterior colporrhaphy (2004) S/P bilateral cataract extraction S/P hemorrhoidectomy (05/2022) S/P RUBINA (total abdominal hysterectomy) Past Anesthesia History No Hx of Anesthesia Complications History of PONV No Hx of PONV Social History Smoking Status: Former smoker Do You Dip or Chew Tobacco: No Hx Alcohol Use: No Hx Substance Use: No substance use type: does not use Physical Exam Vital Signs Last Vital Signs Temp 36.9 C 01/20/23 11:45 Pulse 127 H 01/20/23 11:45 Resp 18 01/20/23 11:45 BP 144/88 H 01/20/23 11:45 Pulse Ox 89 L 01/20/23 11:45 O2 Del Method High Flow Nasal Cannula 01/20/23 11:45 O2 Flow Rate 15 01/20/23 11:45 Constitutional no acute distress ENMT Thyromental Distance: > or= 3.5 Finger Breadths Mallampati Class: II Neck normal visual inspection Respiratory normal respiratory effort; no respiratory distress Auscultation: lungs clear to auscultation bilaterally Cardiovascular Rate/Rhythm: regular rate and regular rhythm Heart Sounds: no murmur Psychiatric Orientation: alert and oriented x 3 Testing Laboratory Results 01/20/23 07:05 01/20/23 07:05 Urine Color Dark Yellow 01/19/23 21:35 Urine Appearance Turbid (Clear) A 01/19/23 21:35 Urine pH 5.0 (4.5-7.5) 01/19/23 21:35 Ur Specific [place] 1.026 (1.000-1.030) 01/19/23 21:35 Urine Protein 1+ (Negative) H 01/19/23 21:35 Urine Glucose (UA) Negative (Negative) 01/19/23 21:35 Urine Ketones Negative (Negative) 01/19/23 21:35 Urine Nitrite Positive (Negative) A 01/19/23 21:35 Ur Leukocyte Esterase 1+ (Negative) H 01/19/23 21:35 Urine WBC (Auto) 10-30 /hpf (0-5) H 01/19/23 21:35 Urine RBC (Auto) 0-4 /hpf (0-4) 01/19/23 21:35 U Hyaline Cast (Auto) 0 /lpf (0-5) 01/19/23 21:35 U Epithel Cells (Auto) >30 /lpf (0-5) H 01/19/23 21:35 Urine Bacteria (Auto) 4+ (Negative) H 01/19/23 21:35 01/19/23 21:35 Urine Culture - Preliminary Urine,Clean Catch Gram positive cocci 01/17/23 01:43 Urine Culture - Final Urine,Straight Cath Three types of organisms present, all high counts. Repeat collection recommended. No further identifications or sensitivities to follow. Echocardiogram EF: 55% LV Function: normal RWMA: + none Valvular Disease: + no significant valvular disease
--- NOTE | 2023-01-20 12:32 | CT Scan Report ---
CT SCAN OF THE ABDOMEN AND PELVIS WITHOUT IV CONTRAST CLINICAL HISTORY: Small bowel obstruction. COMPARISON STUDY: Abdominal CT dated 01/17/2023. Abdominal radiograph performed the same day 3. TECHNIQUE: CT scan of the abdomen and pelvis is performed from the lung bases to the proximal femora. Images are reviewed in the axial, sagittal, and coronal planes. IV contrast was not administered for this examination as referring clinician. Note that the examination was performed and significantly s uboptimal fashion without oral and IV contrast. There is also motion artifact, as well as streak mynor fact from the arms which could not be elevated above the abdomen. A dose lowering technique was utili zed adhering to the principles of ALARA. CT DOSE: 400.03 mGy.cm FINDINGS: Lung bases: The heart is normal in size noting a small pericardial effusion. There are small to moder ate pleural effusions with dependent consolidation. These are new from 01/17/2023. A large hiatal melody ia is partially visualized. Liver: The unenhanced liver is normal in size, contour, and attenuation. There is no intrahepatic jose iary ductal dilatation. Gallbladder: Surgically absent noting clips in the gallbladder fossa. Spleen: Normal in size and attenuation. There is an 11 mm peripherally calcified splenic artery aneur ysm. Pancreas: The unenhanced pancreas is atrophic and grossly unremarkable. Adrenal glands: Unremarkable. Kidneys: The unenhanced kidneys are atrophic and without hydronephrosis. There are no renal calculi i dentified. There is no evidence of contour deforming renal mass lesion. Abdominal vasculature: The abdominal aorta is normal in course and caliber noting advanced atheroscle rotic calcification. Bowel: There is moderate to severe constipation. Fecal burden has modestly improved as compared to . Focal narrowing of the sigmoid colon is again seen on axial image #355. This is of indetermi milind significance and a stricture is not excluded. Fecal retention is seen both above and below this narrowing. There is no CT evidence of underlying mass lesion. There is mild persistent rectal wall th ickening with stranding infiltration. This has improved from 01/17/2023. There is persistent pneumatos is intestinalis of the distal descending/proximal sigmoid colon. This has modestly improved from 01/17. There is also pneumatosis of the splenic flexure. The stomach and proximal small bowel loops a re distended and fluid-filled. Small bowel loops measure up to 4.3 cm in diameter. The distal/termina l ileum are decompressed, and the appearance is consistent with a high-grade small bowel obstruction. An apparent transition point in the proximal small bowel is seen on axial image #20 and 67. A distal transition point is not clearly seen. A closed loop type obstruction is not excluded. There are thic k-walled loops of small bowel seen in the pelvis with intravenous fluid and mild surrounding infiltra tion. No portal venous gas is seen. Peritoneum: Thoracic ventricular peritoneal free air are seen on image #177. There are tiny foci of i ntraperitoneal free air versus mesenteric venous gas in the left upper quadrant on image #137. Interl oop fluid is noted, with fluid tracking along the mesentery. Lymphadenopathy: None. Pelvic viscera: The bladder wall appears thickened and there is intraluminal gas. The uterus is surgi mary absent. No adnexal lesion is seen. Skeletal structures: The skeletal structures are osteopenic. Postoperative and spondylotic change is noted throughout the lumbar spine. No lytic or blastic lesions are seen. IMPRESSION: 1. Significantly suboptimal examination without oral and IV contrast. 2. High-grade small bowel obstruction. A proximal transition point is seen in the midabdomen. A dista l transition point is not well visualized, and the majority of the distal/terminal ileum is decompres sed. A closed loop type obstruction is not excluded. Surgical assessment is advised. 3. There are thick-walled small bowel loops in the pelvis with surrounding infiltration and interloop fluid. 4. There is moderate to severe colonic fecal retention. Fecal load has modestly improved from 01/18/20 23. 5. There is pneumatosis intestinalis seen throughout the left colon. This has modestly improved from 01/17/2023. 6. There are small foci of pneumoperitoneum in the left upper quadrant. This could be related to colo licha pneumatosis. Visceral perforation is not excluded. 7. There is focal narrowing identified in the sigmoid colon, which is unchanged from 01/17/2023. An un derlying stricture would be impossible to exclude. Fecal retention seen both above and below this poi nt. There is no convincing evidence of mass lesion by CT. This can be further assessed with colonosco py if clinically warranted. 8. Findings of proctitis have somewhat improved as compared to 01/17/2023. 9. Small to moderate pleural effusions with dependent consolidation. These are new from 01/17/2023. 10. A large hiatal hernia is partially visualized. 11. The bladder wall appears mildly thickened with foci of intramural gas. Correlate with urinalysis. 12. Additional findings as above. ACT 112: Negative or not required by law. Electronically signed by: Malcom Pompa M.D. 01/20/2023 12:29 PM
--- NOTE | 2023-01-20 12:46 | Surgery Progress Note ---
Date of Service January 20, 2023 Assessment & Plan (1) Large bowel obstruction: Plan: Her recent CT scan and images and results reviewed by me and went over with the radiologist She seems to have pneumatosis intestinalis of her left colon as well as a high- grade small bowel obstruction, possible closed-loop I did discuss with the patient about exploration and she would like to proceed with surgery We will plan on exploratory laparotomy, possible bowel resection, possible ostomy, possible wound VAC Consent was obtained, risk risk discussed including bleeding, infection, anastomotic leak, need for further surgery I did discuss with the patient that she is at very high risk of needing long- term mechanical ventilation and/or even with surgical intervention She is okay with this and would like to proceed (2) Fecal retention: (3) Small bowel obstruction: Admission and Anticipated Discharge Date Admission Date: January 17, 2023 Subjective Patient seen and examined. Still with some abdominal pain and distention. NG tube was unable to be placed. There was some concern for aspiration. No BM or flatus today. Review of Systems Constitutional: no fever and no chills Physical Exam Constitutional: WD/WN, vitals as above Gastrointestinal (Abdomen): Inspection/Auscultation: abdomen normal to inspection and + abdomen distended Percussion/Palpation: + abdomen tender (Generalized) and abdomen soft; no guarding and abdomen not rigid Results & Data Vital Signs (Past 12 Hours) Vital Signs Temp Pulse Resp BP Pulse Ox O2 Del Method O2 Flow Rate 01/20/23 11:45 36.9 C 127 H 18 144/88 H 89 L High Flow Nasal Cannula 15 01/20/23 08:20 37.6 C H 139 H 18 144/51 H 90 Oxymask 7 01/20/23 05:12 37.3 C 119 H 20 164/90 H 92 Nasal Cannula 4 01/20/23 04:56 37.3 C 120 H 20 155/97 H 91 Nasal Cannula 4 PG Care Time/CCT Total # of Minutes Spent Total Time Spent with Patient: Total time spent is greater than 50% in coordination of care (as documented) at patient's floor/unit and/or counseling patient: Coding Level of Care Code 85340 SUB INP/OBS CARE 1/25MIN Diagnoses Large bowel obstruction K56.609 Fecal retention K59.00 Constipation type: unspecified constipation type Small bowel obstruction K56.609 (2) Fecal retention Constipation type: unspecified constipation type Qualified Code(s): K59.00 - Constipation, unspecified
[2023-01-20] MEDS ORDERED: ROCURONIUM BROMIDE 10 MG/ML 5 ML VIAL IV ONE ×6 (12:58→14:40)
[2023-01-20] MEDS ORDERED: fentaNYL citrate PF 100 MCG/2 ML VIAL ONE (12:58)
[2023-01-20] MEDS ORDERED: DEXAMETHASONE SOD INJ 4 MG/ML VIAL ONE (12:58)
[2023-01-20] MEDS ORDERED: ONDANSETRON INJ 2 MG/ML 2 ML VIAL ONE (12:58)
[2023-01-20] MEDS ORDERED: SUCCINYLCHOLINE CHLORIDE 20 MG/ML 10 ML VIAL IV ONE (12:58)
[2023-01-20] MEDS ORDERED: PROPOFOL IV EMULSION 10 MG/ML 20 ML VIAL IV ONE ×2 (12:58→14:39)
[2023-01-20] MEDS ORDERED: LIDOCAINE 2% MPF LOCAL 5 ML VIAL ONE (12:58)
[2023-01-20] MEDS ORDERED: BUPIVACAINE/EPINEPHRINE 0.25% 1:200,000 30 ML VIAL ONE (13:35)
[2023-01-20] MEDS ORDERED: PHENYLEPHRINE 100MCG/ML 5ML SYR ONE (14:39)
[2023-01-20] MEDS ORDERED: ETOMIDATE 2 MG/ML 20 ML VIAL IV ONE (14:40)
--- NOTE | 2023-01-20 14:51 | Post Operative Brief Note ---
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, small bowel obstruction I identified the patient and participated in the time-out.: Yes Procedure Operation Date: 01/20/23 13:00 Actual Procedures p Exploratory Laparotomy, Lysis of Adhesions, Sigmoidectomy, Abdominal Washout, Placement of ABthera Wound Vac(Not Applicable) - Rohan Randhawa DO Surgeon Rohan Randhawa DO Payloader Operator Neal Oquendo PA-C Estimated Blood Loss 10 Findings See Below 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 Portion of sigmoid colon Drains Field Catheter Anesthesia Type General Complications none Disposition Disposition: Surgical ICU
[2023-01-20] MEDS ORDERED: PROPOFOL BOLUS FROM BAG IV PRN (14:58)
[2023-01-20] MEDS ORDERED: fentaNYL BOLUS from BAG IV PRN (14:58)
[2023-01-20] MEDS ORDERED: STAT IV Infusion **Titration per Protocol STA ×4 (14:58→23:08)
[2023-01-20] MEDS ORDERED: ACETAMINOPHEN 1,000 MG/100 ML VIAL IV PRN (14:58)
[2023-01-20] MEDS: propofoL 1,000 MG/100 ML VIAL IV SCH (15:00)
[2023-01-20] MEDS ORDERED: fentaNYL citrate 2,500 MCG/250 ML BAG IV SCH (15:00)
[2023-01-20] MEDS ORDERED: PROPOFOL IV EMULSION 10 MG/ML 100 ML VIAL IV ONE (15:01)
--- NOTE | 2023-01-20 15:10 | Critical Care Consultation ---
Date of Consultation January 20, 2023 Assessment & Plan (1) Small bowel obstruction: (2) Fecal retention: (3) Rectal prolapse: (4) GERD (gastroesophageal reflux disease): (5) Hypothyroidism: (6) Gout: (7) Shock circulatory: (8) Pleural effusion: (9) Pulmonary edema: Plan Reason Critically Ill: 87-year-old female past medical history of GERD, hiatal hernia, gout, hypothyroidism who was admitted to the hospital because of bowel obstruction. Patient was in no distress today and was taken to the OR for ex lap. In the ICU for further management Neuro - [facility] ICU: Negative Continue with propofol and fentanyl Cardiac - -- Transient hypotension keep MAP>65, use vasopressors if need be -- History of hypertension Hold blood pressure medication for the time being Respiratory - -- Vent dependent respiratory failure S/p OR Continue with ventilatory support Keep RASS -1 Daily sedation holidays and SBT's --Acute hypoxic respiratory failure Likely secondary to volume overload as well as possibility of aspiration pneumonia -- Small bilateral pleural effusion GI - -- High grade small bowel obstruction with perforation S/p ex lap 01/20/2023 Surgery on board RENAL/LYTES - -- DAE Follow-up urine lites Monitor BUN/creatinine Avoid nephrotoxic medications Strict ins and outs - Continue with Field catheter --History of bladder incontinence ENDO - -- Continue with ICU hypoglycemia protocol --Hypothyroidism Continue with levothyroxine HEME - -- Monitor H&H ID - -- Continue with gram-negative and anaerobic coverage for ex lap and perforation --Gram-positive cocci in the urine on Antibiotic --DNI --Prophylaxis VTE: IPC GI: Pantoprazole Lines: Left IJ, right radial Diet: N.p.o. Plan: In/out: +8.7 L since coming to the hospital Strict in and out. Repeat CMP now, BNP, TSH and ABG now We will get 2D echo Follow-up urine lites We will do blood cultures Chest x-ray post OR shows improved aeration but there is bilateral alveolar opacities likely presenting pulmonary edema with pleural effusion Left-sided TLC is deep, will retract it by approximately 3 cm I have personally spent 55 minutes of critical care time in the direct management of this patient. This is a life/limb threatening event. This includes time spent evaluating patient, direct bedside care, chart review, placing ord ers, interpretation of diagnostic studies, discussion with consultants, patient, and family members, as well as other required patient management activities. This time is exclusive of all separately billable procedures, and teaching time and separate from and in addition to any other critical care service time. History of Present Illness Attending Physician: Jimmy Oh DO History of Present Illness 87-year-old female presented to the hospital with lower abdominal pain and was found to be in large bowel obstruction Past medical history: Hypothyroidism, gout, hypertension, GERD, hiatal hernia Today on the floor patient was complaining of more abdominal distention, NGT was tried to be placed with a primary team but they were not able to get through. CT of the abdomen pelvis was done which showed significant distention of the stomach which was fluid-filled. Patient was taken to the OR for exploratory laparotomy. Patient sent to the ICU for further management At the time of examination patient was paralyzed She was breathing with the vent Systolic blood pressure was in the 110s. Heart rate in the 90s. She was afebrile Wound VAC in place on the belly. Extremities were warm. She was on 80% FiO2 saturating 90-91% Please make note patient's history was obtained from previous chart Allergies Allergy/AdvReac Type Severity Reaction Status Date / Time No Known Allergies Allergy Unknown ` Verified 01/17/23 00:07 Home Medications Medication Instructions Recorded Confirmed Type aspirin 81 mg tablet,delayed 81 mg PO DAILY 10/01/21 01/17/23 History release (Maggy Low Dose Aspirin) omeprazole 20 mg capsule,delayed 20 mg PO HS 12/25/21 01/17/23 History release levothyroxine 50 mcg tablet 50 mcg PO DAILYBB #90 tabs 10/22/22 01/17/23 Rx allopurinol 100 mg tablet 100 mg PO DAILY #90 tabs 11/12/22 01/17/23 Rx amlodipine 2.5 mg tablet 2.5 mg PO DAILY #90 tabs 11/29/22 01/17/23 Rx imipramine HCl 10 mg tablet 20 mg PO BID #360 tabs 11/29/22 01/17/23 Rx pregabalin 50 mg capsule (Lyrica) 50 mg PO DAILY #30 caps 11/29/22 01/17/23 Rx calcium carbonate 600 mg-vitamin 1 tab PO DAILY 01/17/23 01/17/23 History D3 10 mcg (400 unit) tablet (Calcium 600 + D(3)) cyanocobalamin (vitamin B-12) 500 500 mcg PO DAILY 01/17/23 01/17/23 History mcg tablet (Vitamin B-12) doxepin 10 mg capsule 10 mg PO HS 01/17/23 01/17/23 History folic acid 400 mcg tablet 0.4 mg PO DAILY 01/17/23 01/17/23 History tolterodine 4 mg capsule,extended 4 mg PO HS 01/17/23 01/17/23 History release 24 hr Patient History Medical History (Updated 01/20/23 @ 15:48 by Loreta Myers MD, [facility]) Anemia Chronic kidney disease, stage 3 (moderate) Diarrhea GERD (gastroesophageal reflux disease) Hiatal hernia History of cervical cancer Hypertension Osteoarthritis Osteoporosis Peripheral neuropathy Pressure ulcer of left foot, stage 3 Traumatic open wound of left lower leg Traumatic open wound of right lower leg Surgical History H/O bladder repair surgery History of back surgery x [address] of rectal surgery [address] Flores Whitman - for rectal prolapse on 05/08/22. Hx of cholecystectomy S/P anterior colporrhaphy (2004) S/P bilateral cataract extraction S/P hemorrhoidectomy (05/2022) S/P RUBINA (total abdominal hysterectomy) Family History Father Mouth cancer Mother Myocardial infarction, Onset Age: 82 Aunt Breast cancer Denies family history of Ovarian cancer Prostate cancer Colorectal cancer Social History Smoking Status: Former smoker Tobacco Type: Cigarettes packs per day: 0.5; Second Hand Exposure: No; Hx Alcohol Use: No Hx Substance Use: No Preferred Language: Faroese Communication Ability: Effective Visual Impairment: No Limitations Hearing Ability: Hard of Hearing Transportation Operations Manager Required: No Beliefs That Will Affect Care: None marital status: Single Current Living Situation: Alone current occupational status: retired How many Children do You have: 1 Feels Safe at Home: Yes Childhood Exposure to Second-Hand Smoke: Yes caffeine: Yes during the past year weight has: remained stable Dental Care, Regularly: Yes Physical Activity Frequency: Daily Physical Activity Frequency Comment: housework Seatbelt Use: always Sunscreen Use: Yes Assistive Devices: Cane, Glasses and Walker Review of Systems Review of Systems: Unobtainable due to endotracheal tube Physical Exam Physical Exam: Constitutional: No acute distress HEENT: PERRLA, positive ETT Respiratory system: Decreased air entry bilaterally, no wheeze, no rhonchi, positive crackles bilateral lower lobe CVS: S1-S2 positive, no murmurs or gallops Abdomen: Soft, nontender, nondistended, decreased bowel sounds x4, obese, wound VAC in place Extremities: +1 pulses bilaterally radialis/ dorsalis pedis, no cyanosis, +1 pitting edema bilateral lower extremity Neuro: Sedated, breathing with vent Psych: Unable to assess G/U: Positive Field Skin: no rashes, warm and dry Lymphatic: no cervical or axillary lymphadenopathy Results & Data Results & Data Vital Signs (Past 12 Hours) Vital Signs Temp Pulse Pulse Resp BP Pulse Ox O2 Del Method 01/20/23 08:00 Oxymask 01/20/23 08:00 138 H 01/20/23 11:45 36.9 C 127 H 18 144/88 H 89 L High Flow Nasal Cannula 01/20/23 08:20 37.6 C H 139 H 18 144/51 H 90 Oxymask 01/20/23 05:12 37.3 C 119 H 20 164/90 H 92 Nasal Cannula 01/20/23 04:56 37.3 C 120 H 20 155/97 H 91 Nasal Cannula O2 Flow Rate 01/20/23 08:00 5 01/20/23 08:00 01/20/23 11:45 15 01/20/23 08:20 7 01/20/23 05:12 4 01/20/23 04:56 4 Laboratory Results 01/20/23 07:05 01/20/23 07:05 Coding Level of Care Code 79319 CRITICAL CARE 1ST 30-74M Diagnoses Small bowel obstruction K56.609 Fecal retention K59.00 Constipation type: unspecified constipation type Rectal prolapse K62.3 GERD (gastroesophageal reflux disease) K21.9 Hypothyroidism E03.9 Gout M10.9 Shock circulatory R57.9 Pleural effusion J90 Pulmonary edema J81.1 Time Spent (min) 55 (2) Fecal retention Constipation type: unspecified constipation type Qualified Code(s): K59.00 - Constipation, unspecified
--- NOTE | 2023-01-20 15:10 | Operative Report ---
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, small bowel obstruction I identified the patient and participated in the time-out.: Yes Procedure Operation Date: 01/20/23 13:00 Actual Procedures p Exploratory Laparotomy, Lysis of Adhesions, Sigmoidectomy, Abdominal Washout, Placement of Sterile Wound Vac(Not Applicable) - Rohan Randhawa DO Surgeon Rohan Randhawa DO Oil Scout Neal Oquendo PA-C Estimated Blood Loss 10 Findings See Below 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 At this time she underwent general endotracheal anesthesia without any problems. She was given appropriate pre-operative antibiotics. Her abdomen was prepped and draped in the usual sterile fashion. Timeout was called. The procedure was verified as Exploratory laparotomy, possible bowel resection, possible ostomy, possible wound vac. Surgical, anesthesia and nursing teams agreed and the procedure was begun. A standard midline incision was made using a #10 blade scalpel. This was carried down to the fascia using electrocautery. The midline fascia was then incised with electrocautery. The peritoneum was then entered bluntly. The incision was then opened up through its entirety. There were omental adhesions to the abdominal wall in the midline infraumbilically. These were lysed using Metzenbaum scissors as well as electrocautery. At this point the entire abdomen was free of adhesions. There was some murky fluid that was encountered and suctioned. At this point the small bowel was eviscerated and ran from the ligament of Treitz distally. The small bowel proximally was very dilated. Once we reached a point in the mid jejunum that was attached to the left/sigmoid colon, this was bluntly removed from this area. This revealed necrosis of the medial wall of the distal descending/proximal sigmoid colon. This inflammation was causing the bowel obstruction. The small bowel was then run all the way to the cecum and this was decompressed distally. The small bowel itself was noted to be free of ischemia or perforation. The entire colon was then inspected from the cecum to the proximal rectum and other than stool burden was completely normal in appearance except for the area of necrotic descending/proximal sigmoid colon. At this time we performed a partial sigmoidectomy. This was done creating a window in the mesentery proximal and distal to the area of necrosis and using a RUTHIE 80 mm blue load stapler to transect the colon. Using the LigaSure device the mesentery was then taken and the specimen was passed off. The patient had been getting intermittent vasopressor pushes at this point I decided to use a temporary abdominal closure device and leave the patient in discontinuity in order to get her back to the ICU for resuscitation as quickly as possible. The abdomen was then irrigated until clear. Hemostasis was achieved using electrocautery. Hemostasis was complete. The NG tube was confirmed to be in good position in the stomach. The inner ABThera covering was then placed in the abdomen in order to ensure it was completely covering the intestines. Sponge was then stapled to the skin edges and the VAC itself was hooked up to suction. There was good seal with no leak. At this time the patient remained intubated on mechanical ventilation and was transported back to the ICU in stable condition. The physician's project administrative assistant was present and scrubbed for the entirety of the case. He was critical in positioning the patient, prepping and draping, retraction and exposure, closure of the incision and placement of the dressings. I attest to the content of the Intraoperative Record and any orders documented therein. Any exceptions are noted below.
[2023-01-20] MEDS ORDERED: FUROSEMIDE 40 MG/4 ML VIAL IV ONE (15:26)
[2023-01-20] MEDS: NOREPINEPHRINE/D5W 4 MG/250 ML PLCT IV SCH ×3 (15:30→23:12)
[2023-01-20 15:51] LABS: iSTAT Arterial Blood Gas HCO3 25 meg/L (19-24); iSTAT Arterial Blood Gas pCO2 43 mmHg (35-46); iSTAT Arterial Blood Gas pH 7.38 (7.35-7.45); iSTAT Arterial Blood Gas pO2 65 mmHg (80-95); iSTAT Carbon Dioxide 26 mmol/L (24-31); iSTAT Site Art Line
--- NOTE | 2023-01-20 16:31 | XRay Report ---
SINGLE VIEW CHEST CLINICAL HISTORY: Respiratory failure. Central venous catheter placement. FINDINGS: An AP, portable, supine chest radiograph is compared to study performed earlier the same da y 01/20/2023. An endotracheal tube has been placed. The tip projects approximately 3 cm above the maritza na. An enteric tube has been placed. The tip projects below the diaphragm over the proximal stomach. A left internal jugular central venous catheter has been placed. The tip of the catheter projects ove r the right atrium at the level of the diaphragm. The heart appears mildly enlarged noting atheroscle rotic calcification of the thoracic aorta. Pulmonary vascular congestion persists. Emphysema is noted . Bilateral perihilar opacities are similar to previous. There are layering pleural effusions with de pendent consolidation. No pneumothorax is seen. The skeletal structures are osteopenic. The bony thor ax is grossly intact. Cholecystectomy clips are noted in the right upper quadrant. IMPRESSION: 1. Line and tube placement as above. No pneumothorax is identified post procedure. 2. Layering pleural effusions with dependent consolidation. 3. Pulmonary vascular congestion persists. Bilateral perihilar opacities favor pulmonary edema. Corre late clinically. ACT 112: Negative or not required by law. Electronically signed by: Malcom Pompa M.D. 01/20/2023 4:29 PM
[2023-01-20 17:00] LABS: Magnesium 2.1 mg/dl (1.7-2.4); Phosphorus 3.7 mg/dl (2.5-4.9)
--- NOTE | 2023-01-20 17:11 | Anesthesiology Progress Note ---
Date of Service January 20, 2023 Anesthesia Post Procedure Vital Signs Vital Signs: Temp Pulse Pulse Resp BP BP BP 01/20/23 15:00 01/20/23 16:30 105 H 18 01/20/23 16:30 96/76 L 01/20/23 16:15 91/67 L 01/20/23 16:15 104 H 18 01/20/23 16:00 101 H 18 01/20/23 16:00 104/69 01/20/23 15:45 134/74 01/20/23 15:45 99 H 18 01/20/23 15:30 96 H 18 01/20/23 15:30 109/66 01/20/23 15:25 119/63 01/20/23 15:25 94 H 17 01/20/23 15:20 92 H 18 01/20/23 15:20 129/67 01/20/23 15:15 133/66 01/20/23 15:15 90 18 01/20/23 15:05 97 H 17 01/20/23 15:05 156/86 H 01/20/23 15:00 95 H 23 01/20/23 15:00 130/67 01/20/23 14:56 123/64 01/20/23 14:56 97 H 19 01/20/23 14:55 100 H 18 01/20/23 14:55 110 H 01/20/23 15:30 36.5 C 96 H 18 107/73 01/20/23 15:22 35.8 C L 93 H 18 108/45 L 01/20/23 15:12 35.6 C L 89 16 123/49 L 01/20/23 15:02 35.7 C L 93 H 18 114/47 L 01/20/23 08:00 01/20/23 08:00 138 H 01/20/23 11:45 36.9 C 127 H 18 144/88 H 01/20/23 08:20 37.6 C H 139 H 18 144/51 H 01/20/23 05:12 37.3 C 119 H 20 164/90 H 01/20/23 04:56 37.3 C 120 H 20 155/97 H 01/19/23 20:00 01/19/23 22:01 114 H 01/19/23 23:52 37.1 C 113 H 20 137/86 01/19/23 19:49 36.8 C 111 H 20 143/85 H Pulse Ox O2 Del Method O2 Flow Rate FiO2 01/20/23 15:00 Mechanical Vent 100 01/20/23 16:30 93 01/20/23 16:30 01/20/23 16:15 01/20/23 16:15 92 01/20/23 16:00 93 Mechanical Vent 100 01/20/23 16:00 01/20/23 15:45 01/20/23 15:45 95 01/20/23 15:30 98 01/20/23 15:30 01/20/23 15:25 01/20/23 15:25 86 L 01/20/23 15:20 87 L 01/20/23 15:20 01/20/23 15:15 01/20/23 15:15 92 01/20/23 15:05 89 L 01/20/23 15:05 01/20/23 15:00 96 01/20/23 15:00 01/20/23 14:56 01/20/23 14:56 01/20/23 14:55 01/20/23 14:55 01/20/23 15:30 93 Mechanical Vent 100 01/20/23 15:22 89 L Mechanical Vent 100 01/20/23 15:12 92 Mechanical Vent 80 01/20/23 15:02 92 Mechanical Vent 70 01/20/23 08:00 Oxymask 5 01/20/23 08:00 01/20/23 11:45 89 L High Flow Nasal Cannula 15 01/20/23 08:20 90 Oxymask 7 01/20/23 05:12 92 Nasal Cannula 4 01/20/23 04:56 91 Nasal Cannula 4 01/19/23 20:00 Nasal Cannula 3 01/19/23 22:01 01/19/23 23:52 92 Nasal Cannula 3 01/19/23 19:49 92 Nasal Cannula 3 Pain Intensity Lower Abdomen: Pain Intensity: 6 Transfer of Care Handoff Completed per policy Notes Mental Status: see notes below Nausea / Vomiting: adequately controlled Pain: adequately controlled Airway Patency, RR, SpO2: stable & adequate BP & HR: stable & adequate Hydration State: stable & adequate Anesthetic Complications: no major complications apparent Notes: Pt remained intubated and sedated.
[2023-01-20 17:24] LABS: Potassium Random Urine 31.9 mmol/L
[2023-01-20 17:34] LABS: BUN Creatinine Ratio 36.4 (10-20); Creatinine Clr Calc Pharmacy 18.8 ml/min; Est GFR (African American) 34.6 ml/min; Est GFR (Non-African American) 29.8 ml/min; Potassium 3.3 mmol/L (3.5-5.1)
[2023-01-20] MEDS: ICU ELECTROLYTE REPLACEMENT PROTOCOL SCH (17:41)
[2023-01-20] MEDS ORDERED: D5W AND 1/2NSS 1,000 ML IV SCH (18:00)
[2023-01-20] MEDS ORDERED: POTASSIUM CHLORIDE / WTR 20 MEQ/100 ML PLCT IV STA (18:01)
[2023-01-20] MEDS: VASOPRESSIN 20 UNITS in 0.9 % SODIUM CHLORIDE 100 ML IV SCH (18:10)
--- NOTE | 2023-01-20 18:13 | Billing Data ---
Date of Service January 20, 2023 Coding Level of Care Code 90292 SUB INP/OBS CARE MIN
--- NOTE | 2023-01-20 18:22 | Ultrasound Report ---
ULTRASOUND BILATERAL LOWER EXTREMITY VENOUS CLINICAL HISTORY: Lower extremity edema. COMPARISON STUDY: No priors. TECHNIQUE: Real-time, grayscale, and color Doppler sonography of the deep veins of the right and left lower extremity was performed from the inguinal crease to the calf. Compression and augmentation wer e utilized. FINDINGS: There is no sonographic evidence of deep venous thrombosis identified in the right or left lower extremity. The common femoral, superficial femoral, and popliteal veins are patent and normally compressible bilaterally. The greater saphenous vein and the profunda femoris vein at the junction w ith the common femoral vein are clear in both legs. The visualized calf veins are patent bilaterally. IMPRESSION: There is no sonographic evidence of deep venous thrombosis identified in the right or lef t lower extremity. ACT 112: Negative or not required by law. Electronically signed by: Malcom Pompa M.D. 01/20/2023 6:21 PM
[2023-01-20 18:26] LABS: iSTAT Site Art Line; iSTAT Venous Carbon Dioxide 28 mmol/L (24-31)
[2023-01-20 18:26] LABS: iSTAT Arterial Blood Gas HCO3 25 meg/L (19-24); iSTAT Arterial Blood Gas pCO2 44 mmHg (35-46); iSTAT Arterial Blood Gas pH 7.36 (7.35-7.45); iSTAT Arterial Blood Gas pO2 58 mmHg (80-95); iSTAT Carbon Dioxide 26 mmol/L (24-31); iSTAT FiO2 100 %; iSTAT Site Art Line
[2023-01-20] MEDS: POTASSIUM CHLORIDE / WTR 20 MEQ/100 ML PLCT IV SCH ×3 (18:26→22:48)
[2023-01-20] MEDS ORDERED: DOBUTamine / D5W 500 MG/250 ML BAG IV SCH (18:30)
[2023-01-20] MEDS ORDERED: VECURONIUM BROMIDE 10 MG VIAL IV ONE (18:40)
[2023-01-20] MEDS ORDERED: VECURONIUM BROMIDE 10 MG VIAL IV STA (18:46)
[2023-01-20] MEDS ORDERED: ALBUMIN 5% 250 ML IV ONE ×2 (18:52→22:18)
[2023-01-20] MEDS: PIPERACILLIN/TAZOBACTAM 3.375 GM in DEXTROSE 5% 100 ML IV SCH (19:29)
[2023-01-20] MEDS ORDERED: Nursing to Pharmacy Communication SCH (19:30)
--- NOTE | 2023-01-20 19:39 | Communication Note ---
Date of Service: January 20, 2023 1800 called to bedside for hypotension, hypoxia. Patient with noted cool extremities. She is getting adequate volumes on her ventilator as well as no change in her Pplt pressures. ETco2 with adequate ventilation waveform as well. ABG and VBG (from distal port on CVL) obtained. PaO2 50 with PEEP at 10 and FIO2 100%, her ScVO2 was noted at 30- she was started on vasopressin as adjunct as well as Dobutamine, while preparing bedside POCUS exam. She had worsening hypotension with introducing Dobutamine so this was discontinued with evaluation of POCUS as below. Bedside POCUS difficult with her open abdomen for subxiphoid views, so minimal parasternal long and short axis obtained with "kissing" ventricles and good ventricular contraction- most consistent with hypovolemia. Also noting effusion present which is difficult to classify at this time. She was given 500ml of 5% albumin with immediate increase in her BP with MAPS >60. Her pleural pocus is noted for "b" lines and pleural effusions bilaterally. If stabilizes will obtain CTA of the chest to rule out obstructive shock as well as evaluate effusions better and rule out pericardial effusion, her Venous Doppler were negative for DVT. 1999: Patient to CT scan remains with adequate Maps on 2 vasopressors, and no change in hypoxia. Urine output improved. Await interpretation of imaging studies. Repeat POCUS with better filling left ventricle noted, as HR has decreased, remains with small RA and RV on 4 chamber look. 2129- Patient becoming hypotensive again- repeated bedside POCUS with above and possibly tamponade physiology now that HR is lower, will provide more colloid, 0 CT read back with 1.5 cm anterior pericardial effusion. Discussed case with Dr. Lopez for evaluation of tamponade/intervention. STAT ECHO being placed and will evaluate at bedside. Decreasing PEEP on ventilator at this time as well. 2229: ECHO obtained and evaluated by Dr. Lopez- appreciate interventional cardiology evaluation. 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 Will initiate Milrinone and if continues to be hypotensive will change to epinephrine. She continues to have refractory hypoxemia/ARDS continue ARDSnet ventilation. Attempted to call family with no answer or identifying information noted on voicemail so no message left. Labs pending at this time. Noting the potential for mural thrombus, we are unable to anticoagulate with heparin secondary to recent major surgery, should repeat ECHO if patient survives the next 24-48 hours eval for thrombus. 0430- Patient with decreasing SPO2 and Blood pressure- ABG wtih PaO2 50 on PEEP 10 and FIO2 100%. CXR with bilateral patchy infiltrates and pulmonary edema RT >LT with pleural effusion noted as well. Attempt diuresing. She is requiring manual recruitment maneuvers and bagging to increase SPO2. Will change to Epinephrine. Was able to get in touch with daughter. She was briefly updated on gravity of situation with high likely nava of within the next few hours. Wishes patient to be full code. and requested primary school teacher librarian for last rights. ICU staff/attending was updated and no further modalities or therapeutics likely to reverse her clinical course at this time. Sepsis and cardiogenic shock fully supported, ARDS/Capillary leak supported with PEEP and FIo2 support, maintaining BP with high levels of PEEP becoming more challenging. 0600: Family arrived at bedside updated on clinical situation. Following discussion of cardiac arrest that she would likley not survive a cardiac arrest as she is already on multiple vasoactive medications and as she has been hypoxic and hypotensive through the night an insult such as cardiac arrest is unlikely to yield a good neurological or physical recovery. CODE status changed to DNR/DNI Continue supportive care and treating underlying infection (abdomen/pulmonary). Appreciate Cardiology and General Surgery assistance with this case. Shad TELLES (ACN-)
[2023-01-20] MEDS ORDERED: OPTIRAY 320 500ml IV ONE (20:14)
[2023-01-20] MEDS ORDERED: PLASMA-LYTE A 1,000 ML IV SCH (21:15)
[2023-01-20] MEDS ORDERED: PLASMA-LYTE A 2,000 ML IV SCH (21:15)
--- NOTE | 2023-01-20 21:38 | CT Scan Report ---
Exam(s): CTA CHEST IV Amt: 112ML OPTIRAY 320 EXAM: CT Angiography Chest With Intravenous Contrast CLINICAL HISTORY: Reason for exam: hypoxia hypotension, recent surgery for ischemic bowel. TECHNIQUE: Axial computed tomographic angiography images of the chest with intravenous contrast. CTDI is 10.79 mGy and DLP is 338.57 mGy-cm. Automated exposure control was utilized for the study. A dose lowering technique was utilized adhering to the principles of ALARA. MIP reconstructed images were created and reviewed. COMPARISON: CT abdomen and pelvis 01/17/23; CT chest 02/28/22 FINDINGS: Endotracheal tube terminates 2.5 cm from the mateo. Enteric tube extends to the stomach. Left internal jugular central venous catheter extends to the SVC. Previously seen hiatal hernia is no longer present. Esophagus is fluid- filled and demonstrates circumferential wall thickening and mucosal hyperemia. Heart size is normal. There is an anterior pericardial effusion measuring 1.5 cm. There is no evidence of right ventricular strain. There is no adenopathy. There are moderate right and small left pleural effusions. Minimal dependent atelectasis is noted in the right upper and right middle lobes, with larger regions of confluent atelectasis in both lower lobes. There is no pneumothorax. There is a background of centrilobular emphysema. Septal thickening and alveolar ground-glass lung attenuation is consistent with pulmonary edema. There is thoracic aortic atherosclerosis without aneurysm or dissection. Main pulmonary artery is normal in caliber. There is adequate pulmonary artery opacification. There is no evidence of acute pulmonary embolism. Visualized upper abdomen demonstrates mild pneumoperitoneum in keeping with recent abdominal surgery. There are no acute osseous findings. IMPRESSION: 1. No evidence of acute pulmonary embolism. 2. Anterior pericardial effusion measuring 1.5 cm. 3. Moderate right and small left pleural effusions. Bilateral atelectasis. 4. Previously seen hiatal hernia is no longer visible. Fluid-filled esophagus with diffuse wall thickening may reflect esophagitis. 5. Pulmonary edema. 6. Upper abdominal pneumoperitoneum related to recent abdominal surgery. Communications: 01/20/23 21:32 Call Nurse Called ICU Nurse Shilo on 01/20 21:31 (-04:00) Electronically signed by: Luiz Dinh M.D. 01/20/23 21:37 PM
[2023-01-20] MEDS ORDERED: PLASMA-LYTE A 250 ML IV ONE (21:53)
--- NOTE | 2023-01-20 22:10 | Communication Note ---
See critical care documentation Date of Service: January 20, 20232029 Patient visited at bedside and case discussed with the senior sql server database developer service. Patient was noted to have hypotension along with hypoxia. Patient noted to remain on ventilator with 10 of PEEP and 100% FiO2. Patient started on vasopressin and continues to be on Levophed. Bedside ultrasound was performed by ICU staff and there was concern for hypovolemia and patient was administered fluid boluses to which her blood pressure responded. Due to concern on ultrasound for pericardial effusion patient was sent to a CT scan where she was noted to have a 1.5 cm anterior pericardial effusion. No evidence of pulmonary emboli on this study. Patient was noted to have moderate right and small left pleural effusion on this study. Due to noted pericardial effusion plans noted to check an echocardiogram along with cardiology evaluation. In addition case was discussed with Dr. Randhawa of general surgery who recommends checking CBC to evaluate for decrease in hemoglobin and hematocrit. (H/H noted to be 9.1 and 28.5) and Patient's wound VAC was examined and had about 150 cc of serosanguineous fluid in the container. 2300 bedside echo being performed. Discussed with Dr. 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 He notes that pericardial effusion noted on CT scan is not hemodynamically significant. Twelve-lead EKG performed showing no signs of acute ischemia. Discussed further with ICU staff and plan is to place patient on further inotropic support with milrinone and monitor her response to this. 0500 discussed with senior sql server database developer staffdespite initiation of inotropic support patient remains critically ill on full ventilatory support
[2023-01-20] MEDS: ARTIFICIAL TEARS OP OINT 3.5 GM TUBE OP SCH (22:48)
[2023-01-20] MEDS ORDERED: MILRINONE LACTATE/D5W 20,000 MCG/100 ML BAG IV SCH (23:15)
[2023-01-20 23:19] LABS: BUN Creatinine Ratio 35.8 (10-20); Calcium 6.8 mg/dl (8.6-10.3); Creatinine Clr Calc Pharmacy 19.2 ml/min; Est GFR (African American) 35.4 ml/min; Est GFR (Non-African American) 30.5 ml/min; Magnesium 1.9 mg/dl (1.7-2.4); Potassium 4.1 mmol/L (3.5-5.1)
[2023-01-20] MEDS ORDERED: CALCIUM CHLORIDE 10% 1,000 MG in DEXTROSE 5% 50 ML IV STA (23:29)
--- NOTE | 2023-01-20 23:30 | Cardiology Consultation ---
Date of Consultation January 20, 2023 Assessment & Plan (1) Shock circulatory: 2. New LV dysfunction 3. Intestinal necrosis/SBO -- post partial sigmoidectomy 4. Respiratory failure 5. DAE 6. Small pericardial effusion 7. Pleural effusions Called regarding pericardial effusion noted on CT scan and question of cardiac tamponade and need for emergent pericardiocentesis in the setting of refractory shock. Stat echocardiogram obtained and reviewed at bedside. Patient with new severe LV dysfunction, EF 30 to 35% with apical akinesis most consistent with stress- induced cardiomyopathy. Echo findings also could be consistent with LAD infarct but repeat ECG with no dynamic ST changes. Pericardial effusion is only small and do not feel is causing tamponade. Echo findings suggest reduced cardiac output (est CI 1.9, RA 15). At this point limited potential benefit from attempted pericardiocentesis or c ardiac catheterization. Recommend continued supportive care for suspected stress-induced cardiomyopathy. Trend troponin. Agree with retrial of inotrope. If blood pressure does not tolerate likely will need epinephrine (would avoid phenylephrine). History of Present Illness Attending Physician: Jimmy Oh DO History of Present Illness Ms. Sarmiento is an 87-year-old woman seen emergently in ICU in the setting of pericardial effusion and refractory shock. Admitted with large bowel obstruction which progressed to colonic pneumatosis and pneumoperitoneum with associated small bowel obstruction. Underwent sigmoidectomy and washout today with placement of wound VAC. Transferred to ICU this afternoon intubated on pressors. Initially diuresed for suspected volume overload. This evening increasingly hypotensive, hypoxic. Partial BP response to volume but still requiring escalating pressors, now on norepinephrine 0.6, vasopressin 0.04 (did not tolerate dobutamine). Persistent O2 sats in the mid 80s on FiO2 100, PEEP 10. Underwent chest CTA which was negative for PE. Did show bilateral pleural effusions, pulmonary edema as well as an anterior pericardial effusion measuring 1.5 cm. Interventional cardiology consult for question of pericardiocentesis. Allergies Allergy/AdvReac Type Severity Reaction Status Date / Time No Known Allergies Allergy Unknown ` Verified 01/17/23 00:07 Home Medications Medication Instructions Recorded Confirmed Type aspirin 81 mg tablet,delayed 81 mg PO DAILY 10/01/21 01/17/23 History release (Maggy Low Dose Aspirin) omeprazole 20 mg capsule,delayed 20 mg PO HS 12/25/21 01/17/23 History release levothyroxine 50 mcg tablet 50 mcg PO DAILYBB #90 tabs 10/22/22 01/17/23 Rx allopurinol 100 mg tablet 100 mg PO DAILY #90 tabs 11/12/22 01/17/23 Rx amlodipine 2.5 mg tablet 2.5 mg PO DAILY #90 tabs 11/29/22 01/17/23 Rx imipramine HCl 10 mg tablet 20 mg PO BID #360 tabs 11/29/22 01/17/23 Rx pregabalin 50 mg capsule (Lyrica) 50 mg PO DAILY #30 caps 11/29/22 01/17/23 Rx calcium carbonate 600 mg-vitamin 1 tab PO DAILY 01/17/23 01/17/23 History D3 10 mcg (400 unit) tablet (Calcium 600 + D(3)) cyanocobalamin (vitamin B-12) 500 500 mcg PO DAILY 01/17/23 01/17/23 History mcg tablet (Vitamin B-12) doxepin 10 mg capsule 10 mg PO HS 01/17/23 01/17/23 History folic acid 400 mcg tablet 0.4 mg PO DAILY 01/17/23 01/17/23 History tolterodine 4 mg capsule,extended 4 mg PO HS 01/17/23 01/17/23 History release 24 hr Patient History Medical History (Updated 01/20/23 @ 16:58 by Amanda Pelayo DO) Anemia Chronic kidney disease, stage 3 (moderate) Diarrhea GERD (gastroesophageal reflux disease) Hiatal hernia History of cervical cancer Hypertension Osteoarthritis Osteoporosis Peripheral neuropathy Pressure ulcer of left foot, stage 3 Traumatic open wound of left lower leg Traumatic open wound of right lower leg Surgical History H/O bladder repair surgery History of back surgery x [address] of rectal surgery [address] Flores Whitman - for rectal prolapse on 05/08/22. Hx of cholecystectomy S/P anterior colporrhaphy (2004) S/P bilateral cataract extraction S/P hemorrhoidectomy (05/2022) S/P RUBINA (total abdominal hysterectomy) Family History Father Mouth cancer Mother Myocardial infarction, Onset Age: 82 Aunt Breast cancer Denies family history of Ovarian cancer Prostate cancer Colorectal cancer Social History Smoking Status: Former smoker Tobacco Type: Cigarettes packs per day: 0.5; Second Hand Exposure: No; Hx Alcohol Use: No Hx Substance Use: No Preferred Language: German Communication Ability: Effective Visual Impairment: No Limitations Hearing Ability: Hard of Hearing Custom Wood Stair Builder Required: No Beliefs That Will Affect Care: None marital status: Single Current Living Situation: Alone current occupational status: retired How many Children do You have: 1 Feels Safe at Home: Yes Childhood Exposure to Second-Hand Smoke: Yes caffeine: Yes during the past year weight has: remained stable Dental Care, Regularly: Yes Physical Activity Frequency: Daily Physical Activity Frequency Comment: housework Seatbelt Use: always Sunscreen Use: Yes Assistive Devices: Cane, Glasses and Walker Review of Systems Review of Systems: Unobtainable due to endotracheal tube and Unobtainable due to reduced consciousness Physical Exam Constitutional: + frail appearing Eyes: + anicteric sclerae Respiratory: no respiratory distress Cardiovascular: Rate/Rhythm: regular rate Heart Sounds: no murmur Extremities: no edema extremities cool Gastrointestinal (Abdomen): Percussion/Palpation: abdomen soft Large midline incision with wound vac in place Neurologic: Intubated, sedated Results & Data Vital Signs (Past 12 Hours) Vital Signs Temp Pulse Pulse Resp BP BP BP 01/20/23 22:00 99 H 18 01/20/23 22:00 98/59 L 01/20/23 21:58 96 H 18 01/20/23 21:58 103/58 L 01/20/23 21:45 98 H 18 01/20/23 21:45 106/64 01/20/23 21:30 98 H 18 01/20/23 21:30 104/64 01/20/23 21:15 99 H 18 01/20/23 21:15 101/61 01/20/23 21:00 98 H 18 01/20/23 21:00 117/63 01/20/23 20:45 99 H 18 01/20/23 20:45 121/69 01/20/23 20:30 100 H 16 01/20/23 20:30 122/73 01/20/23 20:22 103 H 18 04/16/23 20:22 113/57 L 01/20/23 20:21 103 H 16 01/20/23 19:45 106 H 18 01/20/23 19:30 109 H 18 01/20/23 19:30 96.6 F L 124/68 01/20/23 19:15 112 H 18 01/20/23 19:34 107 H 124/68 01/20/23 19:34 01/20/23 15:30 01/20/23 19:00 116 H 18 01/20/23 19:00 100/66 01/20/23 18:30 120 H 18 01/20/23 18:30 127/74 01/20/23 18:00 119 H 18 01/20/23 18:00 95/59 L 01/20/23 17:30 115 H 18 01/20/23 17:30 113/82 01/20/23 17:00 108 H 18 01/20/23 17:00 113/74 01/20/23 18:22 119 H 18 01/20/23 15:50 18 01/20/23 15:25 90 16 01/20/23 15:00 01/20/23 16:30 105 H 18 01/20/23 16:30 96/76 L 01/20/23 16:15 91/67 L 01/20/23 16:15 104 H 18 01/20/23 16:00 101 H 18 01/20/23 16:00 104/69 01/20/23 15:45 134/74 01/20/23 15:45 99 H 18 01/20/23 15:30 96 H 18 01/20/23 15:30 109/66 01/20/23 15:25 119/63 01/20/23 15:25 94 H 17 01/20/23 15:20 92 H 18 01/20/23 15:20 129/67 01/20/23 15:15 133/66 01/20/23 15:15 90 18 01/20/23 15:05 97 H 17 01/20/23 15:05 156/86 H 01/20/23 15:00 95 H 23 01/20/23 15:00 130/67 01/20/23 14:56 123/64 01/20/23 14:56 97 H 19 01/20/23 14:55 100 H 18 01/20/23 14:55 110 H 01/20/23 15:30 97.7 F 96 H 18 107/73 01/20/23 15:22 96.4 F L 93 H 18 108/45 L 01/20/23 15:12 96.1 F L 89 16 123/49 L 01/20/23 15:02 96.3 F L 93 H 18 114/47 L 01/20/23 11:45 98.4 F 127 H 18 144/88 H Pulse Ox O2 Del Method O2 Flow Rate FiO2 01/20/23 22:00 86 L 01/20/23 22:00 01/20/23 21:58 86 L 01/20/23 21:58 01/20/23 21:45 87 L 01/20/23 21:45 01/20/23 21:30 84 L 01/20/23 21:30 01/20/23 21:15 87 L 01/20/23 21:15 01/20/23 21:00 88 L 01/20/23 21:00 01/20/23 20:45 94 01/20/23 20:45 01/20/23 20:30 91 01/20/23 20:30 01/20/23 20:22 90 01/20/23 20:22 01/20/23 20:21 90 01/20/23 19:45 88 L 01/20/23 19:30 89 L 01/20/23 19:30 01/20/23 19:15 89 L 01/20/23 19:34 01/20/23 19:34 Mechanical Vent 100 01/20/23 15:30 100 01/20/23 19:00 85 L 01/20/23 19:00 01/20/23 18:30 84 L 01/20/23 18:30 01/20/23 18:00 83 L Mechanical Vent 100 01/20/23 18:00 01/20/23 17:30 91 01/20/23 17:30 01/20/23 17:00 93 01/20/23 17:00 01/20/23 18:22 85 L 100 01/20/23 15:50 100 01/20/23 15:25 91 70 01/20/23 15:00 Mechanical Vent 100 01/20/23 16:30 93 01/20/23 16:30 01/20/23 16:15 01/20/23 16:15 92 01/20/23 16:00 93 Mechanical Vent 100 01/20/23 16:00 01/20/23 15:45 01/20/23 15:45 95 01/20/23 15:30 98 01/20/23 15:30 01/20/23 15:25 01/20/23 15:25 86 L 01/20/23 15:20 87 L 01/20/23 15:20 01/20/23 15:15 01/20/23 15:15 92 01/20/23 15:05 89 L 01/20/23 15:05 01/20/23 15:00 96 01/20/23 15:00 01/20/23 14:56 01/20/23 14:56 01/20/23 14:55 01/20/23 14:55 01/20/23 15:30 93 Mechanical Vent 100 01/20/23 15:22 89 L Mechanical Vent 100 01/20/23 15:12 92 Mechanical Vent 80 01/20/23 15:02 92 Mechanical Vent 70 01/20/23 11:45 89 L High Flow Nasal Cannula 15 PG Care Time/CCT Total # of Minutes Spent Total Time Spent with Patient: Total time spent is greater than 50% in coordination of care (as documented) at patient's floor/unit and/or counseling patient: Coding Level of Care Code 30816 INT INP/OBS CARE 3/75MIN Diagnoses Shock circulatory R57.9
--- NOTE | 2023-01-21 00:05 | XCELERA ---
[id number]
[2023-01-21] MEDS: VASOPRESSIN 20 UNITS in 0.9 % SODIUM CHLORIDE 100 ML IV SCH ×2 (00:42→09:18)
[2023-01-21] MEDS ORDERED: PLASMA-LYTE A 1,000 ML IV SCH (00:45)
[2023-01-21 01:28] LABS: Hematocrit (blood only) 28.5 % (37.0-47.0); Hemoglobin 9.1 g/dl (12.0-16.0); Mean Corpuscular Hemoglobin 27.3 pg (25.0-34.0); Mean Corpuscular Hgb Conc 31.9 g/dL (32.0-36.0); Mean Corpuscular Volume 85.6 fL (80.0-100.0); Mean Platelet Volume 9.3 fL (9.4-12.4); Nucleated RBC # (auto) 0.02 K/uL (0-0.12); Nucleated RBC % (auto) 0.9 %; Platelet Count 161 K/uL (130-400); RDW Coefficient of Variation 15.4 % (11.5-14.5); RDW Standard Deviation 48.2 fL (36.4-46.3); Red Blood Count 3.33 M/uL (4.20-5.40); White Blood Count 2.13 K/ul (4.8-10.8)
[2023-01-21] MEDS: NOREPINEPHRINE/D5W 4 MG/250 ML PLCT IV SCH ×4 (01:29→08:19)
[2023-01-21 01:49] LABS: ALC (manual) 0.79 K/uL (1.2-3.4); ANC (manual) 0.72 K/uL (1.4-6.5); Echinocytes 1+; Eosinophils # (manual) 0.06 K/uL (0-0.50); Eosinophils % (manual) 3 %; Giant Platelets 1+; Lymphocytes # (manual) 0.79 K/uL (1.2-3.4); Lymphocytes % (manual) 37 %; Metamyelocytes # (manual) 0.34 K/uL (0-0); Metamyelocytes % (manual) 16 %; Monocytes # (manual) 0.02 K/uL (0.11-0.59); Monocytes % (manual) 1 %; Myelocytes # (manual) 0.19 K/uL (0-0); Myelocytes % (manual) 9 %; Neutrophils # (manual) 0.72 K/uL (1.40-6.50); Neutrophils % (manual) 34 %; Polychromasia 1+; Toxic Granulation 1+; Toxic Vacuolation 1+
[2023-01-21] MEDS: PIPERACILLIN/TAZOBACTAM 3.375 GM in DEXTROSE 5% 100 ML IV SCH (01:54)
[2023-01-21 04:18] LABS: iSTAT Arterial Blood Gas HCO3 19 meg/L (19-24); iSTAT Arterial Blood Gas pCO2 51 mmHg (35-46); iSTAT Arterial Blood Gas pH 7.17 (7.35-7.45); iSTAT Arterial Blood Gas pO2 54 mmHg (80-95); iSTAT Carbon Dioxide 20 mmol/L (24-31); iSTAT FiO2 100 %; iSTAT Site Art Line
[2023-01-21] MEDS ORDERED: SODIUM BICARB 8.4% INJ 50 MEQ/50 ML SYR IV ONE (04:40)
[2023-01-21 04:42] LABS: Hematocrit (blood only) 28.2 % (37.0-47.0); Mean Corpuscular Hemoglobin 27.3 pg (25.0-34.0); Mean Corpuscular Hgb Conc 31.9 g/dL (32.0-36.0); Mean Corpuscular Volume 85.5 fL (80.0-100.0); Mean Platelet Volume 9.9 fL (9.4-12.4); Platelet Count 149 K/uL (130-400); RDW Coefficient of Variation 15.5 % (11.5-14.5); RDW Standard Deviation 48.6 fL (36.4-46.3); White Blood Count 2.86 K/ul (4.8-10.8)
[2023-01-21] MEDS: propofoL 1,000 MG/100 ML VIAL IV SCH (04:45)
[2023-01-21] MEDS ORDERED: STAT IV Infusion **Titration per Protocol STA (04:49)
[2023-01-21] MEDS ORDERED: SODIUM BICARB 8.4% INJ 50 MEQ/50 ML SYR IV STA (04:53)
[2023-01-21 05:00] LABS: Albumin Level 2.2 gm/dl (3.4-5.0); BUN Creatinine Ratio 32.3 (10-20); Bilirubin Direct 0.2 mg/dl (0-0.2); Bilirubin,Total 0.4 mg/dl (0.2-1.0); Calcium 7.2 mg/dl (8.6-10.3); Est GFR (African American) 32.8 ml/min; Est GFR (Non-African American) 28.3 ml/min; Magnesium 1.8 mg/dl (1.7-2.4); Phosphorus 2.7 mg/dl (2.5-4.9); Potassium 3.9 mmol/L (3.5-5.1); Total Protein 3.4 gm/dl (6.0-8.3)
[2023-01-21] MEDS ORDERED: FUROSEMIDE 40 MG/4 ML VIAL IV ONE ×2 (05:05→05:07)
[2023-01-21 05:08] LABS: INR 1.2 (0.9-1.1); Prothrombin Time 12.2 Seconds (9.0-12.0)
[2023-01-21] MEDS: EPINEPHrine/NSS 4 MG/254 ML BAG IV SCH ×2 (05:10→07:35)
[2023-01-21] MEDS ORDERED: POTASSIUM CHLORIDE / WTR 20 MEQ/100 ML PLCT IV ONE (06:29)
[2023-01-21] MEDS ORDERED: MAGNESIUM SULFATE / D5W 1 GM/100 ML BAG IV ONE (06:29)
[2023-01-21] MEDS: ICU ELECTROLYTE REPLACEMENT PROTOCOL SCH (06:39)
--- NOTE | 2023-01-21 07:24 | Hospitalist Progress Note ---
Date of Service January 21, 2023 Assessment & Plan (1) Large bowel obstruction: Plan: 87-year-old woman who presented with lower abdominal pain and diarrhea x3 weeks. Now admitted for further management of large bowel obstruction secondary to rectal prolapse. Sigmoid colon necrosis/SBO CTAP 01/17 showed large stool burden in large bowel with distention of small bowel loops. No evidence of pneumoperitoneum or inflammation. Patient has had overflow diarrhea and fecal incontinence (secondary to recurrent rectal prolapse) Was initially made NPO but able to have a bowel movement on 01/18; started on clear liquid diet and able to advance to solids - 01/19-01/20; pt extremely nausea w/ vomiting overnight - KUB and f/u CT concerning for bowel perforation; pt underwent ex lap which revealed necrosis of sigmoid colon and SBO caused by inflammatory changes from the necrosis - pt currently has an open abdomen with wound vac in place, NG tube in place - continue zosyn - further management per ICU recommendations Hypoxia - no hx of lung disease - prior to surgical intervention, increasing oxygen requirement - CXR showed pleural effusions with pulmonary edema - echo pending Urinary tract infection Pt denied burning with urination, but does endorse chronic incontinence UA positive for leuk esterase, though has multiple epithelial cells; urine cx >100,000 gram pos cocci continue keflex BID - pt currently with johnson in place Rectal prolapse Patient is s/p 2 failed surgical revision attempts Discussed with general surgery. Recommend patient have follow-up with colorectal surgery as an outpatient upon discharge Currently does not have rectal prolapse HTN - hold medications per ICU Chronic conditions (gout, GERD, neuropathic pain, bladder incontinence): Restarted meds on 01/18 Code: Conditional code Dispo: upgraded to ICU FEN/GI: NPO, pt intubated and sedated DVT Prophylaxis: SCDs Consults: network lead (2) Rectal prolapse: (3) Hypothyroidism: (4) Gout: (5) Neuropathic pain: (6) Hypertension: (7) GERD (gastroesophageal reflux disease): (8) Intestinal necrosis: Admission and Anticipated Discharge Date Admission Date: January 17, 2023 Supervising Physician Co-Signing Physician Notes ATTESTATION I also saw the patient and confirmed lewis portions of the history and exam. I agree with the impression and plan in the resident documentation, and as summarized below. EXAM DATA Labs [facility] IMPRESSION & PLAN Additional per resident documentation Subjective Pt seen at bedside this AM. Pt was nauseous and vomiting throughout the night. Zofran did not seem to help. This morning, she states that her nausea was much better than overnight. Pt also explains that she was feeling SOB overnight so her oxygen was increased. She was not SOB this AM. Denies abdominal pain, chest pain, or leg pains. 01/21 Physical Exam Physical Exam: Constitutional: well appearing, no acute distress HEENT: normocephalic, no conjunctival injection CV: RRR, no murmur, no LE edema Respiratory: Diminished breath sounds throughout. No rhonchi, wheezes, or crackles. Mildly increased work of breathing GI: soft, distended, tender in LLQ, diminished bowel sounds, no guarding present MSK: no gross deformities noted Skin: warm, dry, no rashes Neuro: alert, oriented, no FND noted Psych: mood and affect congruent Results & Data Results & Data Vital Signs (Past 12 Hours) Vital Signs Temp Pulse Resp BP Pulse Ox O2 Del Method FiO2 01/21/23 07:00 36.0 C L 102 H 20 82 L Mechanical Vent 100 01/21/23 07:00 100/49 L 01/21/23 06:45 36.0 C L 104 H 20 82 L 01/21/23 06:45 93/52 L 01/21/23 06:15 20 100 01/21/23 04:25 109 H 20 67 L 100 01/21/23 06:32 94/48 L 01/21/23 06:32 36.0 C L 101 H 20 81 L 01/21/23 06:31 36.0 C L 105 H 20 83 L 01/21/23 06:31 93/47 L 01/21/23 06:30 36.0 C L 106 H 20 83 L 01/21/23 06:30 90/46 L 01/21/23 06:29 36.0 C L 106 H 20 82 L 01/21/23 06:29 80/49 L 01/21/23 06:28 36.0 C L 106 H 20 85 L 01/21/23 06:28 82/47 L 01/21/23 06:27 36.0 C L 106 H 20 01/21/23 06:27 89/46 L 01/21/23 06:26 83/50 L 01/21/23 06:26 36.0 C L 107 H 20 01/21/23 06:25 36.0 C L 107 H 20 01/21/23 06:25 98/52 L 01/21/23 06:24 36.0 C L 107 H 20 01/21/23 06:24 100/51 L 01/21/23 06:23 36.0 C L 107 H 20 01/21/23 06:23 103/46 L 01/21/23 06:22 36.0 C L 108 H 20 01/21/23 06:22 83/50 L 01/21/23 06:21 36.0 C L 108 H 13 01/21/23 06:21 93/60 L 01/21/23 06:20 36.0 C L 108 H 12 01/21/23 06:20 98/68 L 01/21/23 06:19 36.0 C L 107 H 11 L 01/21/23 06:19 88/56 L 01/21/23 06:18 36.0 C L 107 H 12 01/21/23 06:18 99/53 L 01/21/23 06:17 89/60 L 01/21/23 06:17 36.0 C L 107 H 11 L 01/21/23 06:16 36.0 C L 107 H 11 L 01/21/23 06:16 93/50 L 01/21/23 06:15 36.0 C L 107 H 10 L 01/21/23 06:15 78/53 L 01/21/23 06:14 36.0 C L 108 H 11 L 01/21/23 06:14 97/55 L 01/21/23 06:13 36.0 C L 108 H 14 30 L 01/21/23 06:13 85/55 L 01/21/23 06:12 36.0 C L 108 H 11 L 49 L 01/21/23 06:12 77/55 L 01/21/23 06:11 36.0 C L 108 H 13 57 L 01/21/23 06:11 95/49 L 01/21/23 06:10 36.0 C L 108 H 15 59 L 01/21/23 06:10 108/51 L 01/21/23 06:09 36.0 C L 108 H 16 90 01/21/23 06:09 100/55 L 01/21/23 06:08 36.0 C L 108 H 16 73 L 01/21/23 06:08 99/52 L 01/21/23 03:40 105 H 18 82 L 100 01/21/23 03:00 35.9 C L 101 H 18 87 L 01/21/23 03:00 125/54 L 01/21/23 02:45 35.9 C L 104 H 18 86 L 01/21/23 02:45 117/54 L 01/21/23 02:30 35.8 C L 104 H 18 86 L 01/21/23 02:30 117/55 L 01/21/23 02:15 35.8 C L 103 H 18 85 L 01/21/23 02:15 111/56 L 01/21/23 02:08 108/53 L 01/21/23 02:08 35.8 C L 103 H 18 85 L 01/21/23 02:00 35.8 C L 104 H 18 83 L 01/21/23 02:00 112/56 L 01/21/23 01:45 35.8 C L 102 H 18 84 L 01/21/23 01:45 114/53 L 01/21/23 01:30 35.8 C L 101 H 18 86 L 01/21/23 01:30 124/59 L 01/21/23 01:15 35.9 C L 100 H 18 86 L 01/21/23 01:15 126/60 01/21/23 01:00 35.9 C L 98 H 18 86 L 01/21/23 01:00 123/58 L 01/21/23 00:45 36.0 C L 99 H 18 86 L 01/21/23 00:45 126/56 L 01/21/23 00:30 36.0 C L 105 H 18 89 L 01/21/23 00:30 139/64 01/21/23 00:22 106 H 18 86 L 01/21/23 00:22 126/60 01/21/23 00:15 107 H 18 87 L 01/21/23 00:15 124/66 01/21/23 00:00 86 18 89 L 01/21/23 00:00 125/68 01/20/23 23:45 94 H 18 87 L 01/20/23 23:45 116/67 01/20/23 23:30 93 H 18 92 01/20/23 23:30 95/59 L 01/20/23 23:15 94 H 9 L 84 L 01/20/23 23:15 93/62 L 01/20/23 23:00 95 H 18 83 L 01/20/23 23:00 100/62 01/20/23 22:45 96 H 18 85 L 01/20/23 22:45 93/66 L 01/20/23 22:30 98 H 18 87 L 01/20/23 22:30 106/61 01/20/23 22:15 99 H 18 87 L 01/20/23 22:15 107/59 L 01/21/23 00:55 100 01/20/23 22:10 92 H 19 87 L 100 01/21/23 00:00 100 H 103/38 L 01/20/23 23:36 95 H 01/20/23 22:00 99 H 18 86 L 01/20/23 22:00 98/59 L 01/20/23 21:58 96 H 18 86 L 01/20/23 21:58 103/58 L 01/20/23 21:45 98 H 18 87 L 01/20/23 21:45 106/64 01/20/23 21:30 98 H 18 84 L 01/20/23 21:30 104/64 01/20/23 21:15 99 H 18 87 L 01/20/23 21:15 101/61 01/20/23 21:00 98 H 18 88 L 01/20/23 21:00 117/63 01/20/23 20:45 99 H 18 94 01/20/23 20:45 121/69 01/20/23 20:30 100 H 16 91 01/20/23 20:30 122/73 01/20/23 20:22 103 H 18 90 01/20/23 20:22 113/57 L 01/20/23 20:21 103 H 16 90 01/20/23 19:45 106 H 18 88 L 01/20/23 19:30 109 H 18 89 L 01/20/23 19:30 35.9 C L 124/68 01/20/23 19:34 107 H 124/68 01/20/23 19:34 Mechanical Vent 100
--- NOTE | 2023-01-21 07:29 | XRay Report ---
XR chest 1V portable CLINICAL HISTORY: eval tubes/lines/pulmonary alexis while intubated COMPARISON STUDY: Chest radiograph and chest CT January 20, 2022. FINDINGS: Tip of endotracheal tube is 4.2 cm above the mateo. Tip of nasogastric tube is within the body of the stomach. Tip of left internal jugular central line projects over the right atrium. There is no pneumothorax. Moderate right and small left pleural effusions are noted. Interstitial thickenin g and bilateral airspace opacities have progressed since prior chest radiographs. IMPRESSION: 1. Satisfactory positioning of lines and tubes. 2. Progression of pulmonary edema with moderate right and small left pleural effusions. 3. Progression of bilateral lower lung airspace opacities which could reflect pneumonia, atelectasis or alveolar edema. ACT 112: Negative or not required by law. Electronically signed by: Jose Briceno M.D. 01/21/2023 7:26 AM
[2023-01-21] MEDS: ARTIFICIAL TEARS OP OINT 3.5 GM TUBE OP SCH (07:44)
--- NOTE | 2023-01-21 09:08 | Surgery Progress Note ---
Date of Service January 21, 2023 Assessment & Plan (1) Small bowel obstruction: Plan: 87-year-old female postoperative day 1 exploratory laparotomy, adhesiolysis, sigmoidectomy, abdominal washout, placement of ABThera wound VAC She overall is decompensated overnight from a cardiopulmonary standpoint and is requiring multiple pressors at this point Her labs this morning reveal she is severely acidotic I did speak with her family at bedside and no heroic measures are anticipated in order to sustain life We will continue to follow, however prognosis is poor At her current status, there is no plans to take her back to the operating room tomorrow (2) Intestinal necrosis: Admission and Anticipated Discharge Date Admission Date: January 17, 2023 Subjective Patient seen and examined. Remains mechanically ventilated and sedated on the vent. Overnight she has steadily declined requiring increased pressor requirements. Physical Exam Gastrointestinal (Abdomen): VAC in place with serosanguineous fluid in the container Results & Data Vital Signs (Past 12 Hours) Vital Signs Temp Pulse Resp BP Pulse Ox O2 Del Method FiO2 01/21/23 07:39 83 20 80 L 100 01/21/23 07:00 36.0 C L 102 H 20 82 L Mechanical Vent 100 01/21/23 07:00 100/49 L 01/21/23 06:45 36.0 C L 104 H 20 82 L 01/21/23 06:45 93/52 L 01/21/23 07:00 100 01/21/23 07:00 Mechanical Vent 100 01/21/23 06:15 20 100 01/21/23 04:25 109 H 20 67 L 100 01/21/23 06:32 94/48 L 01/21/23 06:32 36.0 C L 101 H 20 81 L 01/21/23 06:31 36.0 C L 105 H 20 83 L 01/21/23 06:31 93/47 L 01/21/23 06:30 36.0 C L 106 H 20 83 L 01/21/23 06:30 90/46 L 01/21/23 06:29 36.0 C L 106 H 20 82 L 01/21/23 06:29 80/49 L 01/21/23 06:28 36.0 C L 106 H 20 85 L 01/21/23 06:28 82/47 L 01/21/23 06:27 36.0 C L 106 H 20 01/21/23 06:27 89/46 L 01/21/23 06:26 83/50 L 01/21/23 06:26 36.0 C L 107 H 20 01/21/23 06:25 36.0 C L 107 H 20 01/21/23 06:25 98/52 L 01/21/23 06:24 36.0 C L 107 H 01/21/23 06:24 100/51 L 01/21/23 06:23 36.0 C L 107 H 20 01/21/23 06:23 103/46 L 01/21/23 06:22 36.0 C L 108 H 20 01/21/23 06:22 83/50 L 01/21/23 06:21 36.0 C L 108 H 13 01/21/23 06:21 93/60 L 01/21/23 06:20 36.0 C L 108 H 01/21/23 06:20 98/68 L 01/21/23 06:19 36.0 C L 107 H 11 L 01/21/23 06:19 88/56 L 01/21/23 06:18 36.0 C L 107 H 12 01/21/23 06:18 99/53 L 01/21/23 06:17 89/60 L 01/21/23 06:17 36.0 C L 107 H 11 L 01/21/23 06:16 36.0 C L 107 H 11 L 01/21/23 06:16 93/50 L 01/21/23 06:15 36.0 C L 107 H 10 L 01/21/23 06:15 78/53 L 01/21/23 06:14 36.0 C L 108 H 11 L 01/21/23 06:14 97/55 L 01/21/23 06:13 36.0 C L 108 H 14 30 L 01/21/23 06:13 85/55 L 01/21/23 06:12 36.0 C L 108 H 11 L 49 L 01/21/23 06:12 77/55 L 01/21/23 06:11 36.0 C L 108 H 13 57 L 01/21/23 06:11 95/49 L 01/21/23 06:10 36.0 C L 108 H 15 59 L 01/21/23 06:10 108/51 L 01/21/23 06:09 36.0 C L 108 H 16 90 01/21/23 06:09 100/55 L 01/21/23 06:08 36.0 C L 108 H 16 73 L 01/21/23 06:08 99/52 L 01/21/23 03:40 105 H 18 82 L 100 01/21/23 03:00 35.9 C L 101 H 18 87 L 01/21/23 03:00 125/54 L 01/21/23 02:45 35.9 C L 104 H 18 86 L 01/21/23 02:45 117/54 L 01/21/23 02:30 35.8 C L 104 H 18 86 L 01/21/23 02:30 117/55 L 01/21/23 02:15 35.8 C L 103 H 18 85 L 01/21/23 02:15 111/56 L 01/21/23 02:08 108/53 L 01/21/23 02:08 35.8 C L 103 H 18 85 L 01/21/23 02:00 35.8 C L 104 H 18 83 L 01/21/23 02:00 112/56 L 01/21/23 01:45 35.8 C L 102 H 18 84 L 01/21/23 01:45 114/53 L 01/21/23 01:30 35.8 C L 101 H 18 86 L 01/21/23 01:30 124/59 L 01/21/23 01:15 35.9 C L 100 H 18 86 L 01/21/23 01:15 126/60 01/21/23 01:00 35.9 C L 98 H 18 86 L 01/21/23 01:00 123/58 L 01/21/23 00:45 36.0 C L 99 H 18 86 L 01/21/23 00:45 126/56 L 01/21/23 00:30 36.0 C L 105 H 18 89 L 01/21/23 00:30 139/64 01/21/23 00:22 106 H 18 86 L 01/21/23 00:22 126/60 01/21/23 00:15 107 H 18 87 L 01/21/23 00:15 124/66 01/21/23 00:00 86 18 89 L 01/21/23 00:00 125/68 01/20/23 23:45 94 H 18 87 L 01/20/23 23:45 116/67 01/20/23 23:30 93 H 18 92 01/20/23 23:30 95/59 L 01/20/23 23:15 94 H 9 L 84 L 01/20/23 23:15 93/62 L 01/20/23 23:00 95 H 18 83 L 01/20/23 23:00 100/62 01/20/23 22:45 96 H 18 85 L 01/20/23 22:45 93/66 L 01/20/23 22:30 98 H 18 87 L 01/20/23 22:30 106/61 01/20/23 22:15 99 H 18 87 L 01/20/23 22:15 107/59 L 01/21/23 00:55 100 01/20/23 22:10 92 H 19 87 L 100 01/21/23 00:00 100 H 103/38 L 01/20/23 23:36 95 H 01/20/23 22:00 99 H 18 86 L 01/20/23 22:00 98/59 L 01/20/23 21:58 96 H 18 86 L 01/20/23 21:58 103/58 L 01/20/23 21:45 98 H 18 87 L 01/20/23 21:45 106/64 01/20/23 21:30 98 H 18 84 L 01/20/23 21:30 104/64 01/20/23 21:15 99 H 18 87 L 01/20/23 21:15 101/61 PG Care Time/CCT Total # of Minutes Spent Total Time Spent with Patient: Total time spent is greater than 50% in coordination of care (as documented) at patient's floor/unit and/or counseling patient: Coding Level of Care Code 27807 Post Operative Follow-Up Diagnoses Small bowel obstruction K56.609 Intestinal necrosis K55.069
--- NOTE | 2023-01-21 09:31 | Death Pronouncement Note ---
Date of Service January 21, 2023 Pronouncement Note Admission Date Admission Date: January 17, 2023 Date and Time of Date of : 01/21/23 Time of : 09:25 PCOD Preliminary cause of : Sepsis Contributing Factors (1) Large bowel obstruction: (2) Rectal prolapse: (3) Hypothyroidism: (4) Gout: (5) Neuropathic pain: (6) Hypertension: (7) GERD (gastroesophageal reflux disease): (8) Intestinal necrosis: Additional Data Attending physician: Paulie Lowry DO Coding Level of Care Code None Diagnoses Large bowel obstruction K56.609 Rectal prolapse K62.3 Hypothyroidism E03.9 Gout M10.9 Neuropathic pain M79.2 Hypertension I10 GERD (gastroesophageal reflux disease) K21.9 Intestinal necrosis K55.069
--- NOTE | 2023-01-21 09:38 | Discharge Summary ---
Date of Service January 21, 2023 Admission HPI Per Admitting Provider Destini is an 87-year-old woman with a history of rectal prolapse (s/p 2 failed revisions) who presented to the emergency room today with diarrhea and progressive weakness x3 weeks. Yesterday, she provided a stool sample for culture outpatient. Upon returning home, she began to experience severe lower abdominal pain 8/10. Although she initially attempted to manage her pain until her follow-up appointment today, her pain continued to worsen and, when she started feeling nauseous and began dry heaving, family called ambulance which brought her to the hospital. In the ED, O2 saturation was noted to be in the high 80s, so she received O2 supplementation via NC. Labs revealed WBC of 12.26, and a BUN of 31. Creatinine-1.10. Total bilirubin 0.4. Lipase was not elevated (69). UA showed 1+ leukocyte esterase without nitrites (4+ bacteria). CT of the abdomen/pelvis revealed "very large volume of stool throughout the large bowel with associated upstream distention of small bowel loops." She received a 500 cc bolus of NS, IV fentanyl for pain, and Zofran for nausea. She was then started on maintenance NS, at which point hospitalist service was contacted for admission. On admission, patient is resting comfortably in bed. She reports lower abdominal pain though she just received some pain medicine. She denies headache, fever, shortness of breath, chest pain, or epigastric pain. When asked about CODE STATUS, she notes that she would like to be full code only because she is an organ donor. Otherwise, she does not want to be resuscitated or placed on assisted ventilation. Admission Exam Per Admitting Provider General: No acute distress HEENT: PERRLA. Normal conjunctiva, anicteric sclera. Oropharynx normal. Respiratory: Normal respiratory effort, CTABL. Cardiovascular: Tachycardic. Regular rhythm. Systolic murmur heard on auscul tation. No gallops, or rubs. No pedal edema. GI: Soft abdomen with normal bowel sounds heard on auscultation. Nontender x4 quadrants Neuro: Alert and oriented x3. Principal Diagnosis Large Bowel Obstruction Discharge Exam Patient has since @ 0925 General: Patient sedated and intubated, NAD Respiratory: Ventilated respiratory effort, CTAB, no respiratory distress Cardiovascular: RRR. No murmurs, rubs, or gallops. No pedal edema. GI: Wound vac in place draining serosanguinous fluid Neuro: Sedated Discharge Data Allergies Allergy/AdvReac Type Severity Reaction Status Date / Time No Known Allergies Allergy Unknown ` Verified 01/17/23 00:07 Consultations 01/17/23 01:39 ED Decision to Admit Stat 01/17/23 03:20 Consult General Surgery Routine 01/20/23 14:46 Consult Bradder Stat Procedures Performed Operation Date: 01/22/23 13:15 <No data on this case meets the specified criteria> Ordered Studies 01/17/23 00:25 CT Abd and Pelvis [CT abd pelvis IV con only] Stat 01/20/23 10:01 CT abd pelvis wo con Stat 01/20/23 15:49 US venous doppler LE BI Stat 01/20/23 19:44 CT angio chest PE protocol Stat Hospital Course (1) Large bowel obstruction: (2) Rectal prolapse: (3) Hypothyroidism: (4) Gout: (5) Neuropathic pain: (6) Hypertension: (7) GERD (gastroesophageal reflux disease): (8) Intestinal necrosis: Plan Ms. Cheek is an 87 year old female with history of GERD, HTN, OA, peripheral neuropathy, CKD3, CHF, hypothyroidism, and rectal prolapse (s/p revision x 2) who presented for worsening lower abdominal pain, nausea, and diarrhea for 3 weeks. Patient was found to have a large bowel obstruction on CTAP, w/o evidence of pneumoperitoneum or acute inflammation. She was noted to have a large volume of stool in her colon. Destini was subsequently admitted for IV hydration, surgical evaluation, and pain control and made NPO. On admission, patient's two failed rectal prolapse revisions were noted, and the surgical team was asked to consult on the case. No rectal prolapse was noted on admission or surgical evaluation, thus additional surgical interventions were deferred to outpatient. Patient noted improvement over the following days, her abdominal discomfort improved, she had a bowel movement, and she started to advance her diet as tolerated. Patient began to experience nausea overnight into 01/20. It was noted that the patient experienced an increased O2 requirement overnight. Patient's clinical picture was noted to be acutely worsened (tachycardia, rising creatinine, increasing O2 requirement). KUB was promptly ordered, radiology called indicated that there was free air in the patient's abdomen. Patient remained overall comfortable at this time and continued to request discharge to home. She continued to deny active abdominal pain. Patient was subsequently sent for STAT CT given KUB findings. Following CT confirmation, patient was promptly taken to the OR. 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 Following surgical management patient was transitioned to the ICU for ongoing ventilatory support. Overnight 01/20-01/21 (per ICU Communication): 1800 called to bedside for hypotension, hypoxia. Patient with noted cool extremities. She is getting adequate volumes on her ventilator as well as no change in her Pplt pressures. ETco2 with adequate ventilation waveform as well. ABG and VBG (from distal port on CVL) obtained. PaO2 50 with PEEP at 10 and FIO2 100%, her ScVO2 was noted at 30- she was started on vasopressin as adjunct as well as Dobutamine, while preparing bedside POCUS exam. She had worsening hypotension with introducing Dobutamine so this was discontinued with evaluation of POCUS as below. Bedside POCUS difficult with her open abdomen for subxiphoid views, so minimal parasternal long and short axis obtained with "kissing" ventricles and good ventricular contraction- most consistent with hypovolemia. Also noting effusion present which is difficult to classify at this time. She was given 500ml of 5% albumin with immediate increase in her BP with MAPS >60. Her pleural pocus is noted for "b" lines and pleural effusions bilaterally. If stabilizes will obtain CTA of the chest to rule out obstructive shock as well as evaluate effusions better and rule out pericardial effusion, her Venous Doppler were negative for DVT. 2000: Patient to CT scan remains with adequate Maps on 2 vasopressors, and no change in hypoxia. Urine output improved. Await interpretation of imaging studies. Repeat POCUS with better filling left ventricle noted, as HR has decreased, remains with small RA and RV on 4 chamber look. 2129- Patient becoming hypotensive again- repeated bedside POCUS with above and possibly tamponade physiology now that HR is lower, will provide more colloid, 2139 CT read back with 1.5 cm anterior pericardial effusion. Discussed case with Dr. Lopez for evaluation of tamponade/intervention. STAT ECHO being placed and will evaluate at bedside. Decreasing PEEP on ventilator at this time as well. 2229: ECHO obtained and evaluated by Dr. Lopez- appreciate interventional cardiology evaluation. 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 Will initiate Milrinone and if continues to be hypotensive will change to epinephrine. She continues to have refractory hypoxemia/ARDS continue ARDSnet ventilation. Attempted to call family with no answer or identifying information noted on voicemail so no message left. Labs pending at this time. Noting the potential for mural thrombus, we are unable to anticoagulate with heparin secondary to recent major surgery, should repeat ECHO if patient survives the next 24-48 hours eval for thrombus. 0430- Patient with decreasing SPO2 and Blood pressure- ABG wtih PaO2 50 on PEEP 10 and FIO2 100%. CXR with bilateral patchy infiltrates and pulmonary edema RT >LT with pleural effusion noted as well. Attempt diuresing. She is requiring manual recruitment maneuvers and bagging to increase SPO2. Will change to Epinephrine. Was able to get in touch with daughter. She was briefly updated on gravity of situation with high likely nava of within the next few hours. Wishes patient to be full code. and requested food and nutrition teacher for last rights. ICU staff/attending was updated and no further modalities or therapeutics likely to reverse her clinical course at this time. Sepsis and cardiogenic shock fully supported, ARDS/Capillary leak supported with PEEP and FIo2 support, maintaining BP with high levels of PEEP becoming more challenging. 0600: Family arrived at bedside updated on clinical situation. Following discussion of cardiac arrest that she would likley not survive a cardiac arrest as she is already on multiple vasoactive medications and as she has been hypoxic and hypotensive through the night an insult such as cardiac arrest is unlikely to yield a good neurological or physical recovery. CODE status changed to DNR/DNI' Patient remained unstable (hypotensive and hypoxic) despite pressor support and ventilatory assistance throughout the morning. Family remained present at bedside. Once clergy and family were all present, patient was provided last rights and it was decided to proceed with comfort measures. Patient at 9:25 this AM with family present. Total Time Total Time Spent Total Time Spent (In Minutes): I did not see or examine the patient today. Please see my attestation. Discharge Plan Discharge Items Patient Disposition: Discharge Diagnosis: Large bowel obstruction Other Date/Time: 01/21/23 09:25 Supervising Physician Co-Signing Physician Notes Patient had been under primary care of ICU team. I received sign-out on this patient from the previous weekend medicine team, although patient passed before I was able to see her this morning. Acute issues, management, and discussion with family were held by the ICU team. I reviewed the discharge summary, as well as the certificate signed by Dr. Hyman, and this seems consistent with documentation by providers on the ICU and medical teams. I agree with the impression and plan as outlined in the discharge summary. Resident Activity Tracking Resident Involvement: Resident Care Provided Care Provided: Adult Hospital Medicine
[2023-01-21] MEDS ORDERED: PANTOprazole 40 MG in SYRINGE 0 ML IV SCH (11:00)
--- NOTE | 2023-01-21 17:40 | Electrocardiogram Report ---
Test Reason : Blood Pressure : / mmHG Vent. Rate : 123 BPM Atrial Rate : 123 BPM P-R Int : 156 ms QRS Dur : 086 ms QT Int : 284 ms P-R-T Axes : 021 -08 -14 degrees QTc Int : 406 ms Poor data quality, interpretation may be adversely affected Sinus tachycardia Possible Anterolateral infarct , age undetermined Abnormal ECG When compared with ECG of 17-JAN-2023 00:52, Premature ventricular complexes are no longer Present Borderline criteria for Anterior infarct are now Present Borderline criteria for Anterolateral infarct are now Present Non-specific change in ST segment in Anterior leads T wave inversion now evident in Inferior leads Confirmed by Nirav Quesada ([id number]) on 01/21/2023 5:40:03 PM Referred By: REFERRED SELF Confirmed By:Radames Quesada
--- NOTE | 2023-01-21 17:45 | Electrocardiogram Report ---
Test Reason : Blood Pressure : / mmHG Vent. Rate : 095 BPM Atrial Rate : 095 BPM P-R Int : 148 ms QRS Dur : 082 ms QT Int : 348 ms P-R-T Axes : 028 016 082 degrees QTc Int : 437 ms Normal sinus rhythm Low voltage QRS Abnormal ECG When compared with ECG of 20-JAN-2023 23:06, (unconfirmed) No significant change was found Confirmed by Nirav Quesada ([id number]) on 01/21/2023 5:44:58 PM Referred By: REFERRED SELF Confirmed By:Radames Quesada
--- NOTE | 2023-01-21 17:45 | Electrocardiogram Report ---
Test Reason : Blood Pressure : / mmHG Vent. Rate : 095 BPM Atrial Rate : 095 BPM P-R Int : 152 ms QRS Dur : 080 ms QT Int : 344 ms P-R-T Axes : 032 014 082 degrees QTc Int : 432 ms Normal sinus rhythm Low voltage QRS Abnormal ECG When compared with ECG of 20-JAN-2023 09:41, (unconfirmed) ST no longer elevated in Inferior leads T wave inversion no longer evident in Inferior leads Nonspecific T wave abnormality no longer evident in Anterior leads Nonspecific T wave abnormality, worse in Lateral leads Confirmed by Nirav Quesada ([id number]) on 01/21/2023 5:44:50 PM Referred By: REFERRED SELF Confirmed By:Radames Quesada
[2023-01-24 17:02] LABS: Uric Acid, Random Urine 5 mg/dL
== END 2023-01-21 11:07 | disposition expired | DRG 329 ==
LOC: ED 23:48 → 1E 01-17 02:12 → SUATTDRO 01-17 02:12 → 1E 01-17 05:36 → 2N 01-17 17:58 → 1E 01-20 15:27
DX: K55.049 Acute infarction of large intestine, extent unspecified; R57.9 Shock, unspecified; R32 Unspecified urinary incontinence; N18.30 Chronic kidney disease, stage 3 unspecified; Z79.82 Long term (current) use of aspirin; G62.9 Polyneuropathy, unspecified; I50.9 Heart failure, unspecified; Z87.891 Personal history of nicotine dependence; Z79.899 Other long term (current) drug therapy; K62.3 Rectal prolapse; Z66 Do not resuscitate; N39.0 Urinary tract infection, site not specified; K56.52 Intestinal adhesions [bands] with complete obstruction; K63.89 Other specified diseases of intestine; K59.00 Constipation, unspecified; M19.90 Unspecified osteoarthritis, unspecified site; Z20.822 Contact with and (suspected) exposure to COVID-19; J96.01 Acute respiratory failure with hypoxia; E03.9 Hypothyroidism, unspecified; N17.9 Acute kidney failure, unspecified; Z79.890 Hormone replacement therapy; I13.0 Hypertensive heart and chronic kidney disease with heart failure and stage 1 through stage 4 chronic kidney disease, or unspecified chronic kidney disease; K21.9 Gastro-esophageal reflux disease without esophagitis; M10.9 Gout, unspecified; I95.9 Hypotension, unspecified; I31.39 Other pericardial effusion (noninflammatory)